=== PATIENT | male | born 1945 ===

== ENCOUNTER 2025-01-27 12:01 | Emergency (ER) | payer OTHER ==
--- OUTSIDE RECORDS SUMMARY | 2025-01-27 12:09 | XMS REPORT | Continuity of Care Document ---
Author Name Unknown Address [address] [facility] [place] [address] [facility] Address [address] [place] [address] Care Team Providers Care Director Of District Office Name Role Phone YAYO CHEN Attending Clinician GÓMEZ Tracy Attending Clinician Unavailable Coby Jain Attending Clinician Gulshan Mcdaniel Attending Clinician Unavailable ANNE-MARIE LEAL Attending Clinician Unavailabl e LAB90 Attending Clinician Unavailable EMILY PENN Attending Clinician Unavailable Coby Jain Admitting Clinician Rj ISSA Admitting Clinician Unavailable Gulshan Lai Admitting Clinician Unavailable Payers Payer Name Policy Type Policy Number Effective Date Expirati on Date Source [employer]ESS [employer]Y PPO 5 [id number] 2025 00:00:00 [employer]ESS [employer] SELECT PLAN HMO 7 [id number] 2023 00:00:00 DANNI MOY GOLD PLUS 42 OA 7 [id number] 2023 00:00:00 MEDICARE PART A \T\ B [id number] 2010 00:00:00 [facility] - [facility] OF STATE [id number] 2010 00:00:00 Problems Condition Name Condition Details Condition Category Status Onset Date Resolution Date Last Treatment Date Treating Clinician Comments Source Anemia Anemia Disease Active 2023-09 00:00: 00 Jolene Seybold - Externa l Elevated BP without diagnosis of hypertensi on Elevated BP without diagnosis of hypertensi on Disease Active 05-11 00:00: 00 Jolene Vasquezold - Externa l Gastroesop hageal reflux disease without esophagiti s Gastroesop hageal reflux disease without esophagiti s Disease Active 05-11 00:00: 00 Jolene Vasquezold - Externa l HTN (hypertens ion) HTN (hypertens ion) Disease Active 05-11 00:00: 00 Jolene Vasquezold - Externa l Hyperlipid emia Hyperlipid emia Disease Active 12-14 00:00: 00 Jolene Seybold - Externa l Allergies, Adverse Reactions, Alerts Allergy Name Allergy Type Status Severity Reaction(s) Onset Date Inactive Date Treating Clinician Comments Source No Known Allergie s DA Active U 06-03 00:00: 00 [facility] No Known Allergie s DA Active U 06-02 00:00: 00 [facility] NO KNOWN ALLERGIE S Drug Class Active [facility] Social History Social Habit Start Date Stop Date Quantity Comments Source Sexual orientation Gordo cruz Miquel - External History of Occupation Jolene Lafleur - External Alcoholic beverage intake 2024-07-14 00:00:00 2024-07-14 00:00:00 Current drinker of alcohol (finding) Jolene Lafleur - External Alcohol intake 2023-12-15 00:00:00 2023-12-15 00:00:00 Current drinker of alcohol (finding) Jolene Lafleur - External Tobacco use and exposure 2023-08-15 00:00:00 2023-08-15 00:00:00 Smokeless tobacco non-user Jolene Lafleur - External History of Social function 2023-08-15 00:00:00 2023-08-15 00:00:00 Jolene Lafleur - External Education 2023-08-15 00:00:00 2023-08-15 00:00:00 17 Jolene Lafleur - External Alcohol Comment 2023-08-15 00:00:00 2023-08-15 00:00:00 occasionally Jolene Lafleur - External Sex 2023-07-30 10:23:14 2023-07-30 10:23:14 Male (finding) Jolene Moy Sex assigned at 1945 00:00:00 1945 00:00:00 Jolene Moy Smoking Status Start Date Stop Date Source Never smoked tobacco Jolene Moy Medications Ordered Medication Name Filled Medication Name Start Date Stop Date Current Medication? Ordering Clinician Indication Dosage Frequency Signature (SIG) Comments Components Source Aspirin (Aspirin Adult Low Dose) 81 MG oral Tablet Delayed Response 2023-09 10:31: 26 Yes 81mg QD Take 1 tablet (81 mg total) by mouth daily. Jolene mirza Atorvastati n Calcium 80 MG oral Tablet 2023-09 10:31: 26 Yes 80mg QD Take 1 tablet (80 mg total) by mouth daily. Jolene mirza Clopidogrel Bisulfate (PLAVIX) 75 MG oral Tablet 2023-09 10:31: 26 Yes 75mg QD Take 1 tablet (75 mg total) by mouth daily. Jolene mirza Ferrous Sulfate 325 (65 Fe) MG oral Tablet 2023-09 10:31: 26 Yes 325mg QD Take 1 tablet (325 mg total) by mouth daily (with breakfast) . Jolene mirza Metoprolol Tartrate (LOPRESSOR) 25 MG oral Tablet 2023-09 10:31: 26 Yes 25mg Q.5D Take 1 tablet (25 mg total) by mouth 2 times daily. Jolene mirza Blood Pressure Monitoring (Blood Pressure Kit) does not apply Device 05-18 00:00: 00 Yes [id number] Check BP daily. Jolene mirza Omeprazole 20 MG oral Delayed Release Capsule 05-11 00:00: 00 07-14 00:00 :00 No [id number] 20mg QD Take 1 capsule (20 mg total) by mouth daily. Jolene mirza Immunizations Ordered Immunization Name Filled Immunization Name Date Status Comments Source PPD-Protein Derivative (Purified)- Tuberculin Unknown Completed Jolene Moy PPD-Protein Derivative (Purified)- Tuberculin Unknown Completed Jolene Seybold - External PPD-Protein Derivative (Purified)- Tuberculin Unknown Completed Jolene Seybold - External PPD-Protein Derivative (Purified)- Tuberculin Unknown Completed Jolene Seybold - External Vital Signs Vital Name Observation Time Observation Value Comments Justin campos Systolic blood pressure 2024-07-14 15:28:00 130 mm[Hg] Jolene Seybo ld - External Diastolic blood pressure 2024-07-14 15:28:00 62 mm[Hg] Jolene Seybo ld - External Heart rate 2024-07-14 15:28:00 78 /min Kelse y Seybold - External Respiratory rate 2024-07-14 15:28:00 16 /min Jolene Seybold - External Body height 2024-07-14 15:28:00 175.3 cm Amanda ey Seybold - External Body weight 2024-07-14 15:28:00 68.947 kg Amanda ey Seybold - External BMI 2024-07-14 15:28:00 22.45 kg/m2 Amanda ey Seybold - External Oxygen saturation in Arterial blood by Pulse oximetry 2024-07-14 15:28:00 100 /min Jolene Seybo ld - External Systolic blood pressure 2024-05-11 19:33:00 110 mm[Hg] Jolene Seybo ld - External Diastolic blood pressure 2024-05-11 19:33:00 60 mm[Hg] Jolene Seybo ld - External Heart rate 2024-05-11 19:17:00 52 /min Kelse y Seybold - External Respiratory rate 2024-05-11 19:17:00 16 /min Jolene Seybold - External Body height 2024-05-11 19:17:00 175.3 cm Amanda ey Seybold - External Body weight 2024-05-11 19:17:00 73.029 kg Amanda ey Seybold - External BMI 2024-05-11 19:17:00 23.78 kg/m2 Amanda ey Seybold - External Oxygen saturation in Arterial blood by Pulse oximetry 2024-05-11 19:17:00 98 /min Jolene Seybo ld - External Systolic blood pressure 2023-12-15 15:55:00 145 mm[Hg] Jolene Seybo ld - External Diastolic blood pressure 2023-12-15 15:55:00 75 mm[Hg] Jolene Seybo ld - External Heart rate 2023-12-15 15:28:00 64 /min Kelse y Seybold - External Body temperature 2023-12-15 15:28:00 35.78 Dyan Jolene Seybold - External Respiratory rate 2023-12-15 15:28:00 15 /min Jolene Seybold - External Body height 2023-12-15 15:28:00 175.3 cm Amanda ey Seybold - External Body weight 2023-12-15 15:28:00 69.854 kg Amanda ey Seybold - External BMI 2023-12-15 15:28:00 22.74 kg/m2 Amanda ey Seybold - External Oxygen saturation in Arterial blood by Pulse oximetry 2023-12-15 15:28:00 98 /min Jolene Seybo ld - External Systolic blood pressure 2023-08-15 17:38:00 140 mm[Hg] Jolene Seybo ld - External Diastolic blood pressure 2023-08-15 17:38:00 70 mm[Hg] Jolene Seybo ld - External Heart rate 2023-08-15 17:38:00 98 /min Kelse y Seybold - External Body temperature 2023-08-15 17:38:00 36.72 Dyan Jolene Seybold - External Respiratory rate 2023-08-15 17:38:00 14 /min Jolene Seybold - External Body height 2023-08-15 17:38:00 175.3 cm Amanda ey Seybold - External Body weight 2023-08-15 17:38:00 69.854 kg Amanda ey Seybold - External BMI 2023-08-15 17:38:00 22.74 kg/m2 Amanda ey Seybold - External Procedures Procedure Date / Time Performed Performing Clinicia n Source [id number] [facility]24[id number]24-[facility] [id number] 2024-06-04 [facility] [id number] 2024-06-04 00:00:00 [facility] [id number] 2024-06-04 00:00:00 [facility] [id number] 2024-06-04 00:00:00 [facility] [id number] 2024-06-04 00:00:00 [facility] [id number] 2024-06-04 00:00:00 DORAI [facility] [id number] 2024-06-04 00:00:00 DORAI [facility] [id number] 2024-06-04 [id number]04 00:00:00 [facility] [id number] 2024-06-03 00:00:00 ABBDA01 [facility] [id number] 2024-06-03 00:00:00 ABBDA01 [facility] QUANTAFLO 2023-12-15 15:36:47 Gómez Burroughs - External Encounters Start Date/Time End Date/Time Encounter Type Admission Type Attending [facility] Facility Care Department Encounter ID Source 2025-01-27 11:00:00 2025-01-27 11:00:00 Outpatient YAYO CHEN [id number] Jolene Lafleur 2024-09-23 00:00:00 2024-09-23 00:00:00 Outpatient GÓMEZ BURROUGHS [id number] Jolene Lafleur 2024-09-06 10:00:00 2024-09-06 10:00:00 Outpatient GÓMEZ BURROUGHS [id number] Jolene Lafleur 2024-08-13 00:00:00 2024-08-13 00:00:00 Outpatient JOLENE FOREMAN [id number] Jolene Lafleur 2024-08-06 00:00:00 2024-08-06 00:00:00 Outpatient JOLENE FOREMNA [id number] Jolene Lafleur 2024-07-14 10:15:00 2024-07-14 10:15:00 Outpatient GÓMEZ BURROUGHS [id number] Jolene Oglesbyybmadhav 2024-07-09 00:00:00 2024-07-09 00:00:00 Outpatient JOLENE FOREMAN [id number] Jolene Oglesbyybmadhav 2024-07-09 00:00:00 2024-07-09 00:00:00 Outpatient PREZAS, GÓMEZ JOLENE FOREMAN [id number] [facility] 2024-06-29 14:45:00 2024-06-29 14:45:00 Outpatient PREZAS, GÓMEZ JOLENE FOREMAN [id number] [facility] 2024-06-03 19:53:00 2024-06-03 19:53:00 Outpatient Lubnadavidhailey Bernicejoyce [facility] [id number] [facility] 2024-06-03 00:09:00 2024-06-03 18:00:00 Inpatient Gulshan Dunn [facility]02 [id number] [facility] 2024-05-31 00:00:00 2024-05-31 00:00:00 Outpatient PREZAS, GÓMEZ JOLENE FOREMAN [id number] [facility] 2024-05-31 00:00:00 2024-05-31 00:00:00 Outpatient JOLENE FOREMAN [id number] [facility] 2024-05-18 15:30:00 2024-05-18 15:30:00 Outpatient ELVISANNE-MARIE JOLENE FOREMAN [id number] [facility] 2024-05-18 00:00:00 2024-05-18 00:00:00 Outpatient PREZAS, GÓMEZ FOREMAN [id number] [facility] 2024-05-11 14:15:00 2024-05-11 14:15:00 Outpatient PREZAS, GÓMEZ FOREMAN [id number] [facility] 2023-12-18 00:00:00 2023-12-18 00:00:00 Outpatient PREZAS, GÓMEZ FOREMAN [id number] [facility] 2023-12-17 00:00:00 2023-12-17 00:00:00 Outpatient PREZAS, GÓMEZ FOREMAN [id number] Jolene Lafleur 2023-12-15 11:30:00 2023-12-15 11:30:00 Outpatient LAB90 JOLENE FOREMAN [id number] Jolene Lafleur 2023-12-15 10:30:00 2023-12-15 10:30:00 Outpatient GÓMEZ BURROUGHS [id number] oJlene Lafleur 2023-11-05 10:15:00 2023-11-05 10:15:00 Outpatient GÓMEZ BURROUGHS [id number] Jolene Lfaleur 2023-08-15 10:45:00 2023-08-15 10:45:00 Outpatient GÓMEZ BURROUGHS [id number] Jolene Lafleur 2023-08-15 00:00:00 2023-08-15 00:00:00 Outpatient JOLENE FOREMAN [id number] Jolene Lafleur 2021-04-27 12:00:00 2021-04-27 12:00:[address] [facility] [id number] [facility] 2021-04-27 12:00:00 2021-04-27 12:00:00 Outpatient EMILY ADAMS [facility] [id number] [facility] Results Test Description Test Time Test Comments Results Result Co mments Source BLOOD GAS [id number] 17:12:00* Test Item Value Reference Range Interpretation Comme nts ARTERIAL BLOOD GAS PH (test code = PHA) 7.37 7.35-7.45 N ARTERIAL BLOOD GAS PCO2 (test code = PCO2A) 35.2 mmHg 35.0-45.0 N ARTERIAL BLOOD GAS PO2 (test code = PO2A) 79.0 mmHg 80.0-95.0 L BICARBONATE TOTAL HCO3 (test code = HCO3) 19.7 mmol/L 22.0-24.0 L BASE EXCESS (test code = PRATIBHA) -5.0 mmol/L See_Comment L [Automated message] The system which generated this result transmitted reference range: (+/-)2.0. The reference range was not used to interpret this result as normal/abnormal. ABG O2 SATURATION (test code = SATA) 95.8 % 95.0-100.0 N ARTERIAL FIO2 (test code = FIO2A) 21.0 % ABG VENT MODE (test code = MODEA) NA ALLENS TEST (test code = ALLENS) NOT APPLICABLE SODIUM (POC) (test code = NA/ABG) 136 mmol/L 135-147 N POTASSIUM (POC) (test code = K/ABG) 4.27 mmol/L 3.6-5.2 N CHLORIDE (ARTERIAL) (test code = CL/ABG) 104 mmol/L 98-108 N GLUCOSE (test code = GLU/ABG) 144 mg/dL 70-104 H IONIZED CALCIUM (test code = CAIABG) 1.17 mmol/L 1.12-1.32 N POC LACTIC ACID (test code = POCLAC) 1.82 mmol/L 0.5-2.2 N TOTAL HGB (test code = THB) 10.7 g/dL 13.0-17.0 L CARBOXYHEMOGLOBIN (test code = HOHGBT) 0.1 % 0-5.0 N METHEMOGLOBIN (test code = METHGB) <0.8 % 0-1.5 N HHb (test code = HHB) 4.2 % TCO2 ARTERIAL (test code = TCO2A) 20.8 MMOL/L 24-30 L BLOOD GAS [id number] 17:12:00* Test Item Value Reference Range Interpretation Comme nts ARTERIAL BLOOD GAS PH (test code = PHA) 7.40 7.35-7.45 N ARTERIAL BLOOD GAS PCO2 (test code = PCO2A) 36.1 mmHg 35.0-45.0 N ARTERIAL BLOOD GAS PO2 (test code = PO2A) 60.4 mmHg 80.0-95.0 L BICARBONATE TOTAL HCO3 (test code = HCO3) 21.7 mmol/L 22.0-24.0 L BASE EXCESS (test code = PRATIBHA) -2.7 mmol/L See_Comment L [Automated message] The system which generated this result transmitted reference range: (+/-)2.0. The reference range was not used to interpret this result as normal/abnormal. ABG O2 SATURATION (test code = SATA) 93.1 % 95.0-100.0 L ARTERIAL FIO2 (test code = FIO2A) 21.0 % ABG VENT MODE (test code = MODEA) NASAL CANNULA ALLENS TEST (test code = ALLENS) NOT APPLICABLE SODIUM (POC) (test code = NA/ABG) 138 mmol/L 135-147 N POTASSIUM (POC) (test code = K/ABG) 4.27 mmol/L 3.6-5.2 N CHLORIDE (ARTERIAL) (test code = CL/ABG) 105 mmol/L 98-108 N GLUCOSE (test code = GLU/ABG) 135 mg/dL 70-104 H IONIZED CALCIUM (test code = CAIABG) 1.17 mmol/L 1.12-1.32 N POC LACTIC ACID (test code = POCLAC) 1.28 mmol/L 0.5-2.2 N TOTAL HGB (test code = THB) 10.8 g/dL 13.0-17.0 L OXYHEMOGLOBIN (test code = OOHGBT) 92.4 % 92.0-98.0 N CARBOXYHEMOGLOBIN (test code = HOHGBT) 0.3 % 0-5.0 N METHEMOGLOBIN (test code = METHGB) <0.8 % 0-1.5 N HHb (test code = HHB) 6.9 % TCO2 ARTERIAL (test code = TCO2A) 22.8 MMOL/L 24-30 L BASIC METABOLIC [id number] 05:26:00* Test Item Value Reference Range Interpretation Comme nts SODIUM (test code = NA) 139 mmol/L 136-145 N POTASSIUM (test code = K) 4.0 mmol/L 3.5-5.1 N CHLORIDE (test code = CL) 104 mmol/l 98-107 N CARBON DIOXIDE (test code = CO2) 29 mmol/L 20-31 N GLUCOSE (test code = GLU) 110 mg/dL 74-106 H BLOOD UREA NITROGEN (test code = BUN) 22 mg/dL 9-23 N GLOMERULAR FILTRATION RATE (test code = GFR) >=60 max estimate mL/min >60 The Glomerular Filtration Rate is a calculated parameterbased on serum Creatinine, patient age and sex. GFR valuesless than 60 mL/min/1.73 square meters are indicative ofChronic Kidney Disease. Values less than 15 mL/min/1.73square meters indicate Kidney failure. The calculation forGFR is based on the CKD-EPI (202) calculation. This formulais race indifferent and is the recommended formula for GFRby the National Kidney Foundation for Adults.The GFR will not calculate if the sex is unknown or if thepatient's age is <18 years. CREATININE (test code = CREAT) 1.00 mg/dL 0.70-1.30 N CALCIUM (test code = CA) 7.9 mg/dL 8.7-10.4 L CBC W/AUTO [id number] 05:12:00* Test Item Value Reference Range Interpretation Comme nts WHITE BLOOD CELL (test code = WBC) 6.4 x10 3/uL 4.8-10.8 N RED BLOOD CELL (test code = RBC) 2.88 x10 6/uL 4.70-6.10 L HEMOGLOBIN (test code = HGB) 9.3 g/dL 14.0-18.0 L HEMATOCRIT (test code = HCT) 26.0 % 42.0-52.0 L MEAN CELL VOLUME (test code = MCV) 90.3 fL 80.0-94.0 N MEAN CELL HGB (test code = MCH) 32.3 pg 27-31 H MEAN CELL HGB CONCENTRATION (test code = MCHC) 35.8 G/DL 33-36.5 N RED CELL DISTRIBUTION WIDTH (test code = RDW) 13.8 % 12.9-16.9 N PLATELET COUNT (test code = PLT) 155 x10 3/uL 150-440 N MEAN PLATELET VOLUME (test c ode = MPV) 9.8 fL 8.9-12.4 N NEUTROPHIL % (test code = NT%) 66.2 % 42.2-75.2 N LYMPHOCYTE % (test code = LY%) 20.1 % 20.5-51.1 L MONOCYTE % (test code = MO%) 10.2 % 1.7-9.3 H EOSINOPHIL % (test code = EO%) 2.4 % 0.0-7.0 N BASOPHIL % (test code = BA%) 0.3 % 0-2.5 N NEUTROPHIL # (test code = NT#) 4.21 x10 3/uL 1.80-7.70 N LYMPHOCYTE # (test code = LY#) 1.28 x10 3/uL 1.00-4.80 N MONOCYTE # (test code = MO#) 0.65 x10 3/uL 0.00-0.80 N EOSINOPHIL # (test code = EO#) 0.15 x10 3/uL 0.00-0.45 N BASOPHIL # (test code = BA#) 0.02 x10 3/uL 0.0-0.20 N [id number] 17:01:00* Test Item Value Reference Range Interpretation Comme nts GLUBED (test code = GLUBED) 88 MG/DL 70-105 N THROMBOPLASTIN TIME [id number] 12:06:00* Test Item Value Reference Range Interpretation Comme nts THROMBOPLASTIN TIME PARTIAL (test code = PTT) 34.4 secs 23.8-34.8 N INTERPRETATIVE D PINEDA: Therapeutic range: Unfractionated Heparin: 60-90 seconds Argatroban: 60-90 seconds BASIC METABOLIC [id number] 12:01:00* Test Item Value Reference Range Interpretation Comme nts SODIUM (test code = NA) 138 mmol/L 136-145 N POTASSIUM (test code = K) 3.7 mmol/L 3.5-5.1 REPEAT VALUE 3.7 CHLORIDE (test code = CL) 103 mmol/l 98-107 N CARBON DIOXIDE (test code = CO2) 29 mmol/L 20-31 N GLUCOSE (test code = GLU) 104 mg/dL 74-106 N BLOOD UREA NITROGEN (test code = BUN) 18 mg/dL 9-23 N GLOMERULAR FILTRATION RATE (test code = GFR) >=60 max estimate mL/min >60 The Glomerular Filtration Rate is a calculated parameterbased on serum Creatinine, patient age and sex. GFR valuesless than 60 mL/min/1.73 square meters are indicative ofChronic Kidney Disease. Values less than 15 mL/min/1.73square meters indicate Kidney failure. The calculation forGFR is based on the CKD-EPI (2020) calculation. This formulais race indifferent and is the recommended formula for GFRby the National Kidney Foundation for Adults.The GFR will not calculate if the sex is unknown or if thepatient's age is <18 years. CREATININE (test code = CREAT) 1.00 mg/dL 0.70-1.30 N CALCIUM (test code = CA) 8.3 mg/dL 8.7-10.4 L [id number] 12:01:00* Test Item Value Reference Range Interpretation Comme nts PHOSPHOROUS (test code = PHOS) 1.8 mg/dL 2.4-5.1 L [id number] 12:01:00* Test Item Value Reference Range Interpretation Comme nts MAGNESIUM (test code = MAG) 2.2 mg/dL 1.6-2.6 N CBC W/AUTO [id number] 11:45:00* Test Item Value Reference Range Interpretation Comme nts WHITE BLOOD CELL (test code = WBC) 7.8 x10 3/uL 4.8-10.8 N RED BLOOD CELL (test code = RBC) 3.35 x10 6/uL 4.70-6.10 L HEMOGLOBIN (test code = HGB) 10.9 g/dL 14.0-18.0 L HEMATOCRIT (test code = HCT) 30.5 % 42.0-52.0 L MEAN CELL VOLUME (test code = MCV) 91.0 fL 80.0-94.0 N MEAN CELL HGB (test code = MCH) 32.5 pg 27-31 H MEAN CELL HGB CONCENTRATION (test code = MCHC) 35.7 G/DL 33-36.5 N RED CELL DISTRIBUTION WIDTH (test code = RDW) 14.4 % 12.9-16.9 N PLATELET COUNT (test code = PLT) 164 x10 3/uL 150-440 N MEAN PLATELET VOLUME (test c ode = MPV) 9.9 fL 8.9-12.4 N NEUTROPHIL % (test code = NT%) 79.0 % 42.2-75.2 H LYMPHOCYTE % (test code = LY%) 11.7 % 20.5-51.1 L MONOCYTE % (test code = MO%) 7.3 % 1.7-9.3 N EOSINOPHIL % (test code = EO%) 0.9 % 0.0-7.0 N BASOPHIL % (test code = BA%) 0.5 % 0-2.5 N NEUTROPHIL # (test code = NT#) 6.12 x10 3/uL 1.80-7.70 N LYMPHOCYTE # (test code = LY#) 0.91 x10 3/uL 1.00-4.80 L MONOCYTE # (test code = MO#) 0.57 x10 3/uL 0.00-0.80 N EOSINOPHIL # (test code = EO#) 0.07 x10 3/uL 0.00-0.45 N BASOPHIL # (test code = BA#) 0.04 x10 3/uL 0.0-0.20 N [id number] 20:40:00* Test Item Value Reference Range Interpretation Comme nts GLUBED (test code = GLUBED) 126 MG/DL 70-105 H BASIC METABOLIC [id number] 18:49:00* Test Item Value Reference Range Interpretation Comme nts SODIUM (test code = NA) 134 mmol/L 136-145 L POTASSIUM (test code = K) 4.7 mmol/L 3.5-5.1 N CHLORIDE (test code = CL) 104 mmol/l 98-107 N CARBON DIOXIDE (test code = CO2) 23 mmol/L 20-31 N GLUCOSE (test code = GLU) 93 mg/dL 74-106 N BLOOD UREA NITROGEN (test code = BUN) 11 mg/dL 9-23 N GLOMERULAR FILTRATION RATE (test code = GFR) >=60 max estimate mL/min >60 The Glomerular Filtration Rate is a calculated parameterbased on serum Creatinine, patient age and sex. GFR valuesless than 60 mL/min/1.73 square meters are indicative ofChronic Kidney Disease. Values less than 15 mL/min/1.73square meters indicate Kidney failure. The calculation forGFR is based on the CKD-EPI (2020) calculation. This formulais race indifferent and is the recommended formula for GFRby the National Kidney Foundation for Adults.The GFR will not calculate if the sex is unknown or if thepatient's age is <18 years. CREATININE (test code = CREAT) 0.90 mg/dL 0.70-1.30 N CALCIUM (test code = CA) 8.1 mg/dL 8.7-10.4 L [id number] 18:49:00* Test Item Value Reference Range Interpretation Comme nts PHOSPHOROUS (test code = PHOS) 2.6 mg/dL 2.4-5.1 N [id number] 18:49:00* Test Item Value Reference Range Interpretation Comme nts MAGNESIUM (test code = MAG) 1.7 mg/dL 1.6-2.6 N [id number] 18:32:00* Test Item Value Reference Range Interpretation Comme nts GLUBED (test code = GLUBED) 94 MG/DL 70-105 N BASIC METABOLIC [id number] 11:43:00* Test Item Value Reference Range Interpretation Comme nts SODIUM (test code = NA) 135 mmol/L 136-145 L POTASSIUM (test code = K) 4.4 mmol/L 3.5-5.1 N CHLORIDE (test code = CL) 103 mmol/l 98-107 N CARBON DIOXIDE (test code = CO2) 27 mmol/L 20-31 N GLUCOSE (test code = GLU) 99 mg/dL 74-106 N BLOOD UREA NITROGEN (test code = BUN) 15 mg/dL 9-23 N GLOMERULAR FILTRATION RATE (test code = GFR) >=60 max estimate mL/min >60 The Glomerular Filtration Rate is a calculated parameterbased on serum Creatinine, patient age and sex. GFR valuesless than 60 mL/min/1.73 square meters are indicative ofChronic Kidney Disease. Values less than 15 mL/min/1.73square meters indicate Kidney failure. The calculation forGFR is based on the CKD-EPI (2020) calculation. This formulais race indifferent and is the recommended formula for GFRby the National Kidney Foundation for Adults.The GFR will not calculate if the sex is unknown or if thepatient's age is <18 years. CREATININE (test code = CREAT) 0.90 mg/dL 0.70-1.30 N CALCIUM (test code = CA) 8.2 mg/dL 8.7-10.4 L [id number] 11:43:00* Test Item Value Reference Range Interpretation Comme nts PHOSPHOROUS (test code = PHOS) 2.5 mg/dL 2.4-5.1 N [id number] 11:43:00* Test Item Value Reference Range Interpretation Comme nts MAGNESIUM (test code = MAG) 2.0 mg/dL 1.6-2.6 N [id number] 09:08:00* Test Item Value Reference Range Interpretation Comme nts GLUBED (test code = GLUBED) 100 MG/DL 70-105 N BASIC METABOLIC [id number] 03:37:00* Test Item Value Reference Range Interpretation Comme nts SODIUM (test code = NA) 137 mmol/L 136-145 N POTASSIUM (test code = K) 4.5 mmol/L 3.5-5.1 N CHLORIDE (test code = CL) 105 mmol/l 98-107 N CARBON DIOXIDE (test code = CO2) 25 mmol/L 20-31 N GLUCOSE (test code = GLU) 102 mg/dL 74-106 N BLOOD UREA NITROGEN (test code = BUN) 18 mg/dL 9-23 N GLOMERULAR FILTRATION RATE (test code = GFR) >=60 max estimate mL/min >60 The Glomerular Filtration Rate is a calculated parameterbased on serum Creatinine, patient age and sex. GFR valuesless than 60 mL/min/1.73 square meters are indicative ofChronic Kidney Disease. Values less than 15 mL/min/1.73square meters indicate Kidney failure. The calculation forGFR is based on the CKD-EPI (202) calculation. This formulais race indifferent and is the recommended formula for GFRby the National Kidney Foundation for Adults.The GFR will not calculate if the sex is unknown or if thepatient's age is <18 years. CREATININE (test code = CREAT) 0.90 mg/dL 0.70-1.30 N CALCIUM (test code = CA) 8.1 mg/dL 8.7-10.4 L [id number] 03:37:00* Test Item Value Reference Range Interpretation Comme nts PHOSPHOROUS (test code = PHOS) 3.3 mg/dL 2.4-5.1 N [id number] 03:37:00* Test Item Value Reference Range Interpretation Comme nts MAGNESIUM (test code = MAG) 2.0 mg/dL 1.6-2.6 N CBC W/AUTO [id number] 03:25:00* Test Item Value Reference Range Interpretation Comme nts WHITE BLOOD CELL (test code = WBC) 11.2 x10 3/uL 4.8-10.8 H RED BLOOD CELL (test code = RBC) 2.97 x10 6/uL 4.70-6.10 L HEMOGLOBIN (test code = HGB) 9.5 g/dL 14.0-18.0 L HEMATOCRIT (test code = HCT) 27.3 % 42.0-52.0 L MEAN CELL VOLUME (test code = MCV) 91.9 fL 80.0-94.0 N MEAN CELL HGB (test code = MCH) 32.0 pg 27-31 H MEAN CELL HGB CONCENTRATION (test code = MCHC) 34.8 G/DL 33-36.5 N RED CELL DISTRIBUTION WIDTH (test code = RDW) 14.3 % 12.9-16.9 N PLATELET COUNT (test code = PLT) 113 x10 3/uL 150-440 L MEAN PLATELET VOLUME (test c ode = MPV) 10.1 fL 8.9-12.4 N NEUTROPHIL % (test code = NT%) 80.3 % 42.2-75.2 H LYMPHOCYTE % (test code = LY%) 11.4 % 20.5-51.1 L MONOCYTE % (test code = MO%) 7.4 % 1.7-9.3 N EOSINOPHIL % (test code = EO%) 0.3 % 0.0-7.0 N BASOPHIL % (test code = BA%) 0.2 % 0-2.5 N NEUTROPHIL # (test code = NT#) 8.95 x10 3/uL 1.80-7.70 H LYMPHOCYTE # (test code = LY#) 1.27 x10 3/uL 1.00-4.80 N MONOCYTE # (test code = MO#) 0.83 x10 3/uL 0.00-0.80 H EOSINOPHIL # (test code = EO#) 0.03 x10 3/uL 0.00-0.45 N BASOPHIL # (test code = BA#) 0.02 x10 3/uL 0.0-0.20 N [id number] 21:25:00* Test Item Value Reference Range Interpretation Comme nts GLUBED (test code = GLUBED) 123 MG/DL 70-105 H COMPREHENSIVE METABOLIC [id number] 17:19:00* Test Item Value Reference Range Interpretation Comme nts SODIUM (test code = NA) 135 mmol/L 136-145 L POTASSIUM (test code = K) 4.0 mmol/L 3.5-5.1 N CHLORIDE (test code = CL) 105 mmol/l 98-107 N CARBON DIOXIDE (test code = CO2) 26 mmol/L 20-31 N GLUCOSE (test code = GLU) 116 mg/dL 74-106 H BLOOD UREA NITROGEN (test code = BUN) 18 mg/dL 9-23 N GLOMERULAR FILTRATION RATE (test code = GFR) >=60 max estimate mL/min >60 The Glomerular Filtration Rate is a calculated parameterbased on serum Creatinine, patient age and sex. GFR valuesless than 60 mL/min/1.73 square meters are indicative ofChronic Kidney Disease. Values less than 15 mL/min/1.73square meters indicate Kidney failure. The calculation forGFR is based on the CKD-EPI (202) calculation. This formulais race indifferent and is the recommended formula for GFRby the National Kidney Foundation for Adults.The GFR will not calculate if the sex is unknown or if thepatient's age is <18 years. CREATININE (test code = CREAT) 0.90 mg/dL 0.70-1.30 N TOTAL PROTEIN (test code = PROT) 6.0 g/dL 5.7-8.2 N ALBUMIN (test code = ALB) 3.7 g/dL 3.2-4.8 N CALCIUM (test code = CA) 8.2 mg/dL 8.7-10.4 L BILIRUBIN TOTAL (test code = BILT) 0.6 mg/dL 0.3-1.2 N SGOT/AST (test code = AST) 38 U/L <34 H SGPT/ALT (test code = ALT) 13 U/L 10-49 N ALKALINE PHOSPHATASE (test code = ALKP) 37.0 U/L 46-116 L [id number] 17:19:00* Test Item Value Reference Range Interpretation Comme nts PHOSPHOROUS (test code = PHOS) 2.7 mg/dL 2.4-5.1 N [id number] 17:19:00* Test Item Value Reference Range Interpretation Comme nts MAGNESIUM (test code = MAG) 2.2 mg/dL 1.6-2.6 N CBC W/AUTO [id number] 17:03:00* Test Item Value Reference Range Interpretation Comme nts WHITE BLOOD CELL (test code = WBC) 15.5 x10 3/uL 4.8-10.8 H RED BLOOD CELL (test code = RBC) 2.98 x10 6/uL 4.70-6.10 L HEMOGLOBIN (test code = HGB) 9.7 g/dL 14.0-18.0 L HEMATOCRIT (test code = HCT) 27.1 % 42.0-52.0 L MEAN CELL VOLUME (test code = MCV) 90.9 fL 80.0-94.0 N MEAN CELL HGB (test code = MCH) 32.6 pg 27-31 H MEAN CELL HGB CONCENTRATION (test code = MCHC) 35.8 G/DL 33-36.5 N RED CELL DISTRIBUTION WIDTH (test code = RDW) 14.5 % 12.9-16.9 N PLATELET COUNT (test code = PLT) 114 x10 3/uL 150-440 L MEAN PLATELET VOLUME (test code = MPV) 10.6 fL 8.9-12.4 N NEUTROPHIL % (test code = NT%) 83.6 % 42.2-75.2 H LYMPHOCYTE % (test code = LY%) 7.9 % 20.5-51.1 L MONOCYTE % (test code = MO%) 7.8 % 1.7-9.3 N EOSINOPHIL % (test code = EO%) 0.1 % 0.0-7.0 N BASOPHIL % (test code = BA%) 0.1 % 0-2.5 N NEUTROPHIL # (test code = NT#) 12.93 x10 3/uL 1.80-7.70 H LYMPHOCYTE # (test code = LY#) 1.22 x10 3/uL 1.00-4.80 N MONOCYTE # (test code = MO#) 1.21 x10 3/uL 0.00-0.80 H EOSINOPHIL # (test code = EO#) 0.02 x10 3/uL 0.00-0.45 N BASOPHIL # (test code = BA#) 0.01 x10 3/uL 0.0-0.20 N [id number] 13:13:00* Test Item Value Reference Range Interpretation Comme nts GLUBED (test code = GLUBED) 132 MG/DL 70-105 H [id number] 08:54:00* Test Item Value Reference Range Interpretation Comme nts GLUBED (test code = GLUBED) 137 MG/DL 70-105 H BLOOD GAS [id number]/[id number] 07:10:00* Test Item Value Reference Range Interpretation Comme nts ARTERIAL BLOOD GAS PH (test code = PHA) 7.40 7.35-7.45 N ARTERIAL BLOOD GAS PCO2 (test code = PCO2A) 35.0 mmHg 35.0-45.0 N ARTERIAL BLOOD GAS PO2 (test code = PO2A) 81.0 mmHg 80.0-95.0 N BICARBONATE TOTAL HCO3 (test code = HCO3) 21.2 mmol/L 22.0-24.0 L BASE EXCESS (test code = PRATIBHA) -3.1 mmol/L See_Comment L [Automated message] The system which generated this result transmitted reference range: (+/-)2.0. The reference range was not used to interpret this result as normal/abnormal. ABG O2 SATURATION (test code = SATA) 96.2 % 95.0-100.0 N ARTERIAL FIO2 (test code = FIO2A) 70.0 % ABG VENT MODE (test code = MODEA) NASAL CANNULA ALLENS TEST (test code = ALLENS) NOT APPLICABLE SODIUM (POC) (test code = NA/ABG) 133 mmol/L 135-147 L POTASSIUM (POC) (test code = K/ABG) 4.18 mmol/L 3.6-5.2 N CHLORIDE (ARTERIAL) (test code = CL/ABG) 103 mmol/L 98-108 N GLUCOSE (test code = GLU/ABG) 126 mg/dL 70-104 H IONIZED CALCIUM (test code = CAIABG) 1.16 mmol/L 1.12-1.32 N POC LACTIC ACID (test code = POCLAC) 1.18 mmol/L 0.5-2.2 N TOTAL HGB (test code = THB) 9.9 g/dL 13.0-17.0 L CARBOXYHEMOGLOBIN (test code = HOHGBT) 0.3 % 0-5.0 N METHEMOGLOBIN (test code = METHGB) <0.8 % 0-1.5 N HHb (test code = HHB) 3.8 % TCO2 ARTERIAL (test code = TCO2A) 22.3 MMOL/L 24-30 L HGBA1C - GLYCOSYLATED [id number] 04:28:00* Test Item Value Reference Range Interpretation Comme nts GLYCOSYLATED HEMOGLOBIN (HA1C) (test code = GLYHGB) 5.1 % <5.7 N Diabetic >/= 6.5%Prediabetes 5.7-6.4%Normal < 5.7% BASIC METABOLIC [id number] 03:45:00* Test Item Value Reference Range Interpretation Comme nts SODIUM (test code = NA) 138 mmol/L 136-145 N POTASSIUM (test code = K) 4.3 mmol/L 3.5-5.1 N CHLORIDE (test code = CL) 107 mmol/l 98-107 N CARBON DIOXIDE (test code = CO2) 26 mmol/L 20-31 N GLUCOSE (test code = GLU) 129 mg/dL 74-106 H BLOOD UREA NITROGEN (test code = BUN) 17 mg/dL 9-23 N GLOMERULAR FILTRATION RATE (test code = GFR) >=60 max estimate mL/min >60 The Glomerular Filtration Rate is a calculated parameterbased on serum Creatinine, patient age and sex. GFR valuesless than 60 mL/min/1.73 square meters are indicative ofChronic Kidney Disease. Values less than 15 mL/min/1.73square meters indicate Kidney failure. The calculation forGFR is based on the CKD-EPI (2020) calculation. This formulais race indifferent and is the recommended formula for GFRby the National Kidney Foundation for Adults.The GFR will not calculate if the sex is unknown or if thepatient's age is <18 years. CREATININE (test code = CREAT) 1.00 mg/dL 0.70-1.30 N CALCIUM (test code = CA) 8.5 mg/dL 8.7-10.4 L [id number] 03:45:00* Test Item Value Reference Range Interpretation Comme nts PHOSPHOROUS (test code = PHOS) 3.5 mg/dL 2.4-5.1 N [id number] 03:45:00* Test Item Value Reference Range Interpretation Comme nts MAGNESIUM (test code = MAG) 2.2 mg/dL 1.6-2.6 N PROTHROMBIN [id number] 03:30:00* Test Item Value Reference Range Interpretation Comme nts PROTHROMBIN TIME PATIENT (test code = PTP) 12.2 SECONDS 10.3-12.9 N INTERNATIONAL NORMAL RATIO (test code = INR) 1.09 0.9-1.11 N INR goals are individualized based on patient specificfactors. The following are only general guidelines: Indications: INR Goal:1. Treatment of venous thromboembolism and 2.0 - 3.0 systemic anticoagulation in a variety of conditions, including atrial fibrillation and mechanical heart valves 2. Mechanical mitral and tricuspid valves, 2.5 - 3.5 systemic anticoagulation for high-risk conditions THROMBOPLASTIN TIME [id number] 03:30:00* Test Item Value Reference Range Interpretation Comme nts THROMBOPLASTIN TIME PARTIAL (test code = PTT) 29.4 secs 23.8-34.8 N INTERPRETATIVE D PINEDA: Therapeutic range: Unfractionated Heparin: 60-90 seconds Argatroban: 60-90 seconds CBC W/AUTO [id number] 03:21:00* Test Item Value Reference Range Interpretation Comme nts WHITE BLOOD CELL (test code = WBC) 18.4 x10 3/uL 4.8-10.8 H RED BLOOD CELL (test code = RBC) 2.88 x10 6/uL 4.70-6.10 L HEMOGLOBIN (test code = HGB) 9.4 g/dL 14.0-18.0 L HEMATOCRIT (test code = HCT) 26.2 % 42.0-52.0 L MEAN CELL VOLUME (test code = MCV) 91.0 fL 80.0-94.0 N MEAN CELL HGB (test code = MCH) 32.6 pg 27-31 H MEAN CELL HGB CONCENTRATION (test code = MCHC) 35.9 G/DL 33-36.5 N RED CELL DISTRIBUTION WIDTH (test code = RDW) 14.4 % 12.9-16.9 N PLATELET COUNT (test code = PLT) 111 x10 3/uL 150-440 L MEAN PLATELET VOLUME (test code = MPV) 9.9 fL 8.9-12.4 N NEUTROPHIL % (test code = NT%) 84.2 % 42.2-75.2 H LYMPHOCYTE % (test code = LY%) 7.1 % 20.5-51.1 L MONOCYTE % (test code = MO%) 8.0 % 1.7-9.3 N EOSINOPHIL % (test code = EO%) 0.1 % 0.0-7.0 N BASOPHIL % (test code = BA%) 0.1 % 0-2.5 N NEUTROPHIL # (test code = NT#) 15.45 x10 3/uL 1.80-7.70 H LYMPHOCYTE # (test code = LY#) 1.30 x10 3/uL 1.00-4.80 N MONOCYTE # (test code = MO#) 1.47 x10 3/uL 0.00-0.80 H EOSINOPHIL # (test code = EO#) 0.01 x10 3/uL 0.00-0.45 N BASOPHIL # (test code = BA#) 0.02 x10 3/uL 0.0-0.20 N BLOOD GAS [id number] 02:11:00* Test Item Value Reference Range Interpretation Comme nts ARTERIAL BLOOD GAS PH (test code = PHA) 7.37 7.35-7.45 N ARTERIAL BLOOD GAS PCO2 (test code = PCO2A) 40.3 mmHg 35.0-45.0 N ARTERIAL BLOOD GAS PO2 (test code = PO2A) 82.5 mmHg 80.0-95.0 N BICARBONATE TOTAL HCO3 (test code = HCO3) 22.6 mmol/L 22.0-24.0 N BASE EXCESS (test code = PRATIBHA) -2.6 mmol/L See_Comment L [Automated message] The system which generated this result transmitted reference range: (+/-)2.0. The reference range was not used to interpret this result as normal/abnormal. ABG O2 SATURATION (test code = SATA) 96.3 % 95.0-100.0 N ARTERIAL FIO2 (test code = FIO2A) 28.0 % ABG VENT MODE (test code = MODEA) NASAL CANNULA ALLENS TEST (test code = ALLENS) NOT APPLICABLE SODIUM (POC) (test code = NA/ABG) 134 mmol/L 135-147 L POTASSIUM (POC) (test code = K/ABG) 4.29 mmol/L 3.6-5.2 N CHLORIDE (ARTERIAL) (test code = CL/ABG) 104 mmol/L 98-108 N GLUCOSE (test code = GLU/ABG) 142 mg/dL 70-104 H IONIZED CALCIUM (test code = CAIABG) 1.23 mmol/L 1.12-1.32 N POC LACTIC ACID (test code = POCLAC) 1.45 mmol/L 0.5-2.2 N TOTAL HGB (test code = THB) 10.7 g/dL 13.0-17.0 L OXYHEMOGLOBIN (test code = OOHGBT) 95.4 % 92.0-98.0 N CARBOXYHEMOGLOBIN (test code = HOHGBT) 0.4 % 0-5.0 N METHEMOGLOBIN (test code = METHGB) <0.8 % 0-1.5 N HHb (test code = HHB) 3.7 % TCO2 ARTERIAL (test code = TCO2A) 23.8 MMOL/L 24-30 L BASIC METABOLIC [id number] 20:50:00* Test Item Value Reference Range Interpretation Comme nts SODIUM (test code = NA) 139 mmol/L 136-145 N POTASSIUM (test code = K) 4.4 mmol/L 3.5-5.1 N CHLORIDE (test code = CL) 107 mmol/l 98-107 N CARBON DIOXIDE (test code = CO2) 24 mmol/L 20-31 N GLUCOSE (test code = GLU) 132 mg/dL 74-106 H BLOOD UREA NITROGEN (test code = BUN) 15 mg/dL 9-23 N GLOMERULAR FILTRATION RATE (test code = GFR) >=60 max estimate mL/min >60 The Glomerular Filtration Rate is a calculated parameterbased on serum Creatinine, patient age and sex. GFR valuesless than 60 mL/min/1.73 square meters are indicative ofChronic Kidney Disease. Values less than 15 mL/min/1.73square meters indicate Kidney failure. The calculation forGFR is based on the CKD-EPI (2020) calculation. This formulais race indifferent and is the recommended formula for GFRby the National Kidney Foundation for Adults.The GFR will not calculate if the sex is unknown or if thepatient's age is <18 years. CREATININE (test code = CREAT) 1.00 mg/dL 0.70-1.30 N CALCIUM (test code = CA) 8.8 mg/dL 8.7-10.4 N [id number] 20:50:00* Test Item Value Reference Range Interpretation Comme nts PHOSPHOROUS (test code = PHOS) 3.9 mg/dL 2.4-5.1 N [id number] 20:50:00* Test Item Value Reference Range Interpretation Comme nts MAGNESIUM (test code = MAG) 2.3 mg/dL 1.6-2.6 N COMPREHENSIVE METABOLIC [id number] 17:47:00* Test Item Value Reference Range Interpretation Comme nts SODIUM (test code = NA) 141 mmol/L 136-145 N POTASSIUM (test code = K) 4.3 mmol/L 3.5-5.1 N CHLORIDE (test code = CL) 108 mmol/l 98-107 H CARBON DIOXIDE (test code = CO2) 22 mmol/L 20-31 N GLUCOSE (test code = GLU) 141 mg/dL 74-106 H BLOOD UREA NITROGEN (test code = BUN) 15 mg/dL 9-23 N GLOMERULAR FILTRATION RATE (test code = GFR) >=60 max estimate mL/min >60 The Glomerular Filtration Rate is a calculated parameterbased on serum Creatinine, patient age and sex. GFR valuesless than 60 mL/min/1.73 square meters are indicative ofChronic Kidney Disease. Values less than 15 mL/min/1.73square meters indicate Kidney failure. The calculation forGFR is based on the CKD-EPI (2020) calculation. This formulais race indifferent and is the recommended formula for GFRby the National Kidney Foundation for Adults.The GFR will not calculate if the sex is unknown or if thepatient's age is <18 years. CREATININE (test code = CREAT) 1.00 mg/dL 0.70-1.30 N TOTAL PROTEIN (test code = PROT) 5.9 g/dL 5.7-8.2 N ALBUMIN (test code = ALB) 3.8 g/dL 3.2-4.8 N CALCIUM (test code = CA) 8.2 mg/dL 8.7-10.4 L BILIRUBIN TOTAL (test code = BILT) 0.7 mg/dL 0.3-1.2 N SGOT/AST (test code = AST) 57 U/L <34 H SGPT/ALT (test code = ALT) 16 U/L 10-49 N ALKALINE PHOSPHATASE (test code = ALKP) 32.0 U/L 46-116 L [id number] 17:47:00* Test Item Value Reference Range Interpretation Comme nts PHOSPHOROUS (test code = PHOS) 3.7 mg/dL 2.4-5.1 N [id number] 17:47:00* Test Item Value Reference Range Interpretation Comme nts MAGNESIUM (test code = MAG) 1.9 mg/dL 1.6-2.6 N CBC W/AUTO [id number] 17:11:00* Test Item Value Reference Range Interpretation Comme nts WHITE BLOOD CELL (test code = WBC) 20.6 x10 3/uL 4.8-10.8 H RED BLOOD CELL (test code = RBC) 3.06 x10 6/uL 4.70-6.10 L HEMOGLOBIN (test code = HGB) 10.0 g/dL 14.0-18.0 L HEMATOCRIT (test code = HCT) 27.9 % 42.0-52.0 L MEAN CELL VOLUME (test code = MCV) 91.2 fL 80.0-94.0 N MEAN CELL HGB (test code = MCH) 32.7 pg 27-31 H MEAN CELL HGB CONCENTRATION (test code = MCHC) 35.8 G/DL 33-36.5 N RED CELL DISTRIBUTION WIDTH (test code = RDW) 14.4 % 12.9-16.9 N PLATELET COUNT (test code = PLT) 125 x10 3/uL 150-440 L MEAN PLATELET VOLUME (test code = MPV) 9.9 fL 8.9-12.4 N NEUTROPHIL % (test code = NT%) 89.6 % 42.2-75.2 H LYMPHOCYTE % (test code = LY%) 3.1 % 20.5-51.1 L MONOCYTE % (test code = MO%) 6.7 % 1.7-9.3 N EOSINOPHIL % (test code = EO%) 0.0 % 0.0-7.0 N BASOPHIL % (test code = BA%) 0.1 % 0-2.5 N NEUTROPHIL # (test code = NT#) 18.46 x10 3/uL 1.80-7.70 H LYMPHOCYTE # (test code = LY#) 0.63 x10 3/uL 1.00-4.80 L MONOCYTE # (test code = MO#) 1.37 x10 3/uL 0.00-0.80 H EOSINOPHIL # (test code = EO#) 0.00 x10 3/uL 0.00-0.45 N BASOPHIL # (test code = BA#) 0.02 x10 3/uL 0.0-0.20 N [id number] 09:45:00* Test Item Value Reference Range Interpretation Comme nts GLUBED (test code = GLUBED) 147 MG/DL 70-105 H [id number] 06:28:00* Test Item Value Reference Range Interpretation Comme nts GLUBED (test code = GLUBED) 89 MG/DL 70-105 N [id number] 05:26:00* Test Item Value Reference Range Interpretation Comme nts GLUBED (test code = GLUBED) 103 MG/DL 70-105 N BLOOD GAS [id number] 04:18:00* Test Item Value Reference Range Interpretation Comme nts ARTERIAL BLOOD GAS PH (test code = PHA) 7.37 7.35-7.45 N ARTERIAL BLOOD GAS PCO2 (test code = PCO2A) 39.9 mmHg 35.0-45.0 N ARTERIAL BLOOD GAS PO2 (test code = PO2A) 107.6 mmHg 80.0-95.0 H BICARBONATE TOTAL HCO3 (test code = HCO3) 22.5 mmol/L 22.0-24.0 N BASE EXCESS (test code = PRATIBHA) -2.5 mmol/L See_Comment L [Automated message] The system which generated this result transmitted reference range: (+/-)2.0. The reference range was not used to interpret this result as normal/abnormal. ABG O2 SATURATION (test code = SATA) 97.8 % 95.0-100.0 N ARTERIAL FIO2 (test code = FIO2A) 32.0 % ABG VENT MODE (test code = MODEA) NASAL CANNULA ALLENS TEST (test code = ALLENS) No SODIUM (POC) (test code = NA/ABG) 140 mmol/L 135-147 N POTASSIUM (POC) (test code = K/ABG) 4.31 mmol/L 3.6-5.2 N CHLORIDE (ARTERIAL) (test code = CL/ABG) 107 mmol/L 98-108 N GLUCOSE (test code = GLU/ABG) 131 mg/dL 70-104 H IONIZED CALCIUM (test code = CAIABG) 1.26 mmol/L 1.12-1.32 N POC LACTIC ACID (test code = POCLAC) 1.56 mmol/L 0.5-2.2 N TOTAL HGB (test code = THB) 10.0 g/dL 13.0-17.0 L OXYHEMOGLOBIN (test code = OOHGBT) 97.2 % 92.0-98.0 N CARBOXYHEMOGLOBIN (test code = HOHGBT) 0.3 % 0-5.0 N METHEMOGLOBIN (test code = METHGB) <0.8 % 0-1.5 N HHb (test code = HHB) 2.2 % TCO2 ARTERIAL (test code = TCO2A) 23.8 MMOL/L 24-30 L [id number] 04:17:00* Test Item Value Reference Range Interpretation Comme [facility] GLUBED (test code = GLUBED) 122 MG/DL 70-105 H VENOUS BLOOD [id number] 04:17:00* Test Item Value Reference Range Interpretation Comme [facility] VENOUS BLOOD GAS PH (test code = PHV) 7.35 7.35-7.45 N VENOUS BLOOD GAS PCO2 (test code = PCO2V) 44.4 mmHg See_Comment [Automated messa ge] The system which generated this result transmitted reference range: 46. The reference range was not used to interpret this result as normal/abnormal. VENOUS BLOOD GAS PO2 (test code = PO2V) 34.1 mmHg See_Comment [Automated messa ge] The system which generated this result transmitted reference range: 40. The reference range was not used to interpret this result as normal/abnormal. VBG HCO3 (test code = HCO3V) 24 meq/L VBG BASE EXCESS (test code = ROLA) -1.9 MMOL/L VENOUS BLOOD GAS O2 SAT (test code = O2SATV) 73 % See_Comment [Automated messa ge] The system which generated this result transmitted reference range: 75. The reference range was not used to interpret this result as normal/abnormal. VENOUS BLOOD GAS TYPE (test code = TYPEV) Venous VENOUS BLOOD GAS FIO2 (test code = FIO2V) 28.0 % VBG VENT MODE (test code = MODEV) NC BASIC METABOLIC [id number] 03:47:00* Test Item Value Reference Range Interpretation Comme [facility] SODIUM (test code = NA) 144 mmol/L 136-145 N POTASSIUM (test code = K) 4.4 mmol/L 3.5-5.1 N CHLORIDE (test code = CL) 114 mmol/l 98-107 H CARBON DIOXIDE (test code = CO2) 22 mmol/L 20-31 N GLUCOSE (test code = GLU) 125 mg/dL 74-106 H BLOOD UREA NITROGEN (test code = BUN) 10 mg/dL 9-23 N GLOMERULAR FILTRATION RATE (test code = GFR) >=60 max estimate mL/min >60 The Glomerular Filtration Rate is a calculated parameterbased on serum Creatinine, patient age and sex. GFR valuesless than 60 mL/min/1.73 square meters are indicative ofChronic Kidney Disease. Values less than 15 mL/min/1.73square meters indicate Kidney failure. The calculation forGFR is based on the CKD-EPI (2020) calculation. This formulais race indifferent and is the recommended formula for GFRby the National Kidney Foundation for Adults.The GFR will not calculate if the sex is unknown or if thepatient's age is <18 years. CREATININE (test code = CREAT) 1.00 mg/dL 0.70-1.30 N CALCIUM (test code = CA) 9.4 mg/dL 8.7-10.4 N LIVER FUNCTION [id number] 03:47:00* Test Item Value Reference Range Interpretation Comme nts TOTAL PROTEIN (test code = PROT) 5.3 g/dL 5.7-8.2 L ALBUMIN (test code = ALB) 3.4 g/dL 3.2-4.8 N BILIRUBIN TOTAL (test code = BILT) 0.5 mg/dL 0.3-1.2 N BILIRUBIN DIRECT (test code = BILD) 0.2 mg/dL <0.3 N SGOT/AST (test code = AST) 71 U/L <34 H SGPT/ALT (test code = ALT) 16 U/L 10-49 N ALKALINE PHOSPHATASE (test c ode = ALKP) 27.0 U/L 46-116 L [id number] 03:47:00* Test Item Value Reference Range Interpretation Comme nts PHOSPHOROUS (test code = PHOS) 4.0 mg/dL 2.4-5.1 [id number] 03:47:00* Test Item Value Reference Range Interpretation Comme nts MAGNESIUM (test code = MAG) 2.0 mg/dL 1.6-2.6 N LACTIC [id number] 03:46:00* Test Item Value Reference Range Interpretation Comme nts LACTIC ACID (test code = LACT) 1.30 mmol/L 0.5-2.0 N PROTHROMBIN [id number] 03:38:00* Test Item Value Reference Range Interpretation Comme nts PROTHROMBIN TIME PATIENT (test code = PTP) 13.1 SECONDS 10.3-12.9 H INTERNATIONAL NORMAL RATIO (test code = INR) 1.17 0.9-1.11 H INR goals are individualized based on patient specificfactors. The following are only general guidelines: Indications: INR Goal:1. Treatment of venous thromboembolism and 2.0 - 3.0 systemic anticoagulation in a variety of conditions, including atrial fibrillation and mechanical heart valves 2. Mechanical mitral and tricuspid valves, 2.5 - 3.5 systemic anticoagulation for high-risk conditions THROMBOPLASTIN TIME [id number] 03:38:00* Test Item Value Reference Range Interpretation Comme nts THROMBOPLASTIN TIME PARTIAL (test code = PTT) 29.1 secs 23.8-34.8 N INTERPRETATIVE D PINEDA: Therapeutic range: Unfractionated Heparin: 60-90 seconds Argatroban: 60-90 seconds [id number] 03:38:00* Test Item Value Reference Range Interpretation Comme nts FIBRINOGEN (test code = FIB) 189 mg/dL 200-400 L CBC W/AUTO [id number] 03:35:00* Test Item Value Reference Range Interpretation Comme nts WHITE BLOOD CELL (test code = WBC) 14.8 x10 3/uL 4.8-10.8 H RED BLOOD CELL (test code = RBC) 2.86 x10 6/uL 4.70-6.10 L HEMOGLOBIN (test code = HGB) 9.3 g/dL 14.0-18.0 L HEMATOCRIT (test code = HCT) 26.4 % 42.0-52.0 L MEAN CELL VOLUME (test code = MCV) 92.3 fL 80.0-94.0 N MEAN CELL HGB (test code = MCH) 32.5 pg 27-31 H MEAN CELL HGB CONCENTRATION (test code = MCHC) 35.2 G/DL 33-36.5 N RED CELL DISTRIBUTION WIDTH (test code = RDW) 14.0 % 12.9-16.9 N PLATELET COUNT (test code = PLT) 118 x10 3/uL 150-440 L MEAN PLATELET VOLUME (test code = MPV) 10.1 fL 8.9-12.4 N NEUTROPHIL % (test code = NT%) 88.7 % 42.2-75.2 H LYMPHOCYTE % (test code = LY%) 2.3 % 20.5-51.1 L MONOCYTE % (test code = MO%) 8.4 % 1.7-9.3 N EOSINOPHIL % (test code = EO%) 0.0 % 0.0-7.0 N BASOPHIL % (test code = BA%) 0.1 % 0-2.5 N NEUTROPHIL # (test code = NT#) 13.15 x10 3/uL 1.80-7.70 H LYMPHOCYTE # (test code = LY#) 0.34 x10 3/uL 1.00-4.80 L MONOCYTE # (test code = MO#) 1.25 x10 3/uL 0.00-0.80 H EOSINOPHIL # (test code = EO#) 0.00 x10 3/uL 0.00-0.45 N BASOPHIL # (test code = BA#) 0.01 x10 3/uL 0.0-0.20 N [id number] 02:24:00* Test Item Value Reference Range Interpretation Comme nts GLUBED (test code = GLUBED) 134 MG/DL 70-105 H [id number] 01:17:00* Test Item Value Reference Range Interpretation Comme nts GLUBED (test code = GLUBED) 93 MG/DL 70-105 N BLOOD GAS [id number] 00:37:00* Test Item Value Reference Range Interpretation Comme nts ARTERIAL BLOOD GAS PH (test code = PHA) 7.38 7.35-7.45 N ARTERIAL BLOOD GAS PCO2 (test code = PCO2A) 35.7 mmHg 35.0-45.0 N ARTERIAL BLOOD GAS PO2 (test code = PO2A) 117.8 mmHg 80.0-95.0 H BICARBONATE TOTAL HCO3 (test code = HCO3) 20.8 mmol/L 22.0-24.0 L BASE EXCESS (test code = PRATIBHA) -3.8 mmol/L See_Comment L [Automated message] The system which generated this result transmitted reference range: (+/-)2.0. The reference range was not used to interpret this result as normal/abnormal. ABG O2 SATURATION (test code = SATA) 97.8 % 95.0-100.0 N ARTERIAL FIO2 (test code = FIO2A) 32.0 % ABG VENT MODE (test code = MODEA) NASAL CANNULA ALLENS TEST (test code = ALLENS) No SODIUM (POC) (test code = NA/ABG) 141 mmol/L 135-147 N POTASSIUM (POC) (test code = K/ABG) 4.02 mmol/L 3.6-5.2 N CHLORIDE (ARTERIAL) (test code = CL/ABG) 108 mmol/L 98-108 N GLUCOSE (test code = GLU/ABG) 111 mg/dL 70-104 H IONIZED CALCIUM (test code = CAIABG) 1.17 mmol/L 1.12-1.32 N POC LACTIC ACID (test code = POCLAC) 3.61 mmol/L 0.5-2.2 H TOTAL HGB (test code = THB) 10.3 g/dL 13.0-17.0 L OXYHEMOGLOBIN (test code = OOHGBT) 97.0 % 92.0-98.0 N CARBOXYHEMOGLOBIN (test code = HOHGBT) 0.3 % 0-5.0 N METHEMOGLOBIN (test code = METHGB) <0.8 % 0-1.5 N HHb (test code = HHB) 2.2 % TCO2 ARTERIAL (test code = TCO2A) 21.9 MMOL/L 24-30 L BLOOD GAS [id number] 00:37:00* Test Item Value Reference Range Interpretation Comme nts ARTERIAL BLOOD GAS PH (test code = PHA) 7.32 7.35-7.45 L ARTERIAL BLOOD GAS PCO2 (test code = PCO2A) 35.0 mmHg 35.0-45.0 N ARTERIAL BLOOD GAS PO2 (test code = PO2A) 87.3 mmHg 80.0-95.0 N BICARBONATE TOTAL HCO3 (test code = HCO3) 17.5 mmol/L 22.0-24.0 L BASE EXCESS (test code = PRATIBHA) -7.8 mmol/L See_Comment L [Automated message] The system which generated this result transmitted reference range: (+/-)2.0. The reference range was not used to interpret this result as normal/abnormal. ABG O2 SATURATION (test code = SATA) 97.0 % 95.0-100.0 N ARTERIAL FIO2 (test code = FIO2A) 32.0 % ABG VENT MODE (test code = MODEA) NASAL CANNULA ALLENS TEST (test code = ALLENS) No SODIUM (POC) (test code = NA/ABG) 143 mmol/L 135-147 N POTASSIUM (POC) (test code = K/ABG) 3.76 mmol/L 3.6-5.2 N CHLORIDE (ARTERIAL) (test code = CL/ABG) 109 mmol/L 98-108 H GLUCOSE (test code = GLU/ABG) 185 mg/dL 70-104 H IONIZED CALCIUM (test code = CAIABG) 1.24 mmol/L 1.12-1.32 N POC LACTIC ACID (test code = POCLAC) 8.02 mmol/L 0.5-2.2 H TOTAL HGB (test code = THB) 11.2 g/dL 13.0-17.0 L OXYHEMOGLOBIN (test code = OOHGBT) 95.7 % 92.0-98.0 N CARBOXYHEMOGLOBIN (test code = HOHGBT) 0.8 % 0-5.0 N METHEMOGLOBIN (test code = METHGB) <0.8 % 0-1.5 N HHb (test code = HHB) 3.0 % TCO2 ARTERIAL (test code = TCO2A) 18.6 MMOL/L 24-30 L [id number] 23:22:00* Test Item Value Reference Range Interpretation Comme nts GLUBED (test code = GLUBED) 127 MG/DL 70-105 H [id number] 22:20:00* Test Item Value Reference Range Interpretation Comme nts GLUBED (test code = GLUBED) 155 MG/DL 70-105 H [id number] 21:18:00* Test Item Value Reference Range Interpretation Comme nts GLUBED (test code = GLUBED) 174 MG/DL 70-105 H BASIC METABOLIC [id number] 20:59:00* Test Item Value Reference Range Interpretation Comme nts SODIUM (test code = NA) 148 mmol/L 136-145 H POTASSIUM (test code = K) 3.8 mmol/L 3.5-5.1 N CHLORIDE (test code = CL) 112 mmol/l 98-107 H CARBON DIOXIDE (test code = CO2) 19 mmol/L 20-31 L GLUCOSE (test code = GLU) 175 mg/dL 74-106 H BLOOD UREA NITROGEN (test code = BUN) 11 mg/dL 9-23 N GLOMERULAR FILTRATION RATE (test code = GFR) >=60 max estimate mL/min >60 The Glomerular Filtration Rate is a calculated parameterbased on serum Creatinine, patient age and sex. GFR valuesless than 60 mL/min/1.73 square meters are indicative ofChronic Kidney Disease. Values less than 15 mL/min/1.73square meters indicate Kidney failure. The calculation forGFR is based on the CKD-EPI (202) calculation. This formulais race indifferent and is the recommended formula for GFRby the National Kidney Foundation for Adults.The GFR will not calculate if the sex is unknown or if thepatient's age is <18 years. CREATININE (test code = CREAT) 1.20 mg/dL 0.70-1.30 N CALCIUM (test code = CA) 8.9 mg/dL 8.7-10.4 N [id number] 20:59:00* Test Item Value Reference Range Interpretation Comme nts MAGNESIUM (test code = MAG) 2.0 mg/dL 1.6-2.6 N CBC W/AUTO [id number] 20:49:00* Test Item Value Reference Range Interpretation Comme nts WHITE BLOOD CELL (test code = WBC) 15.9 x10 3/uL 4.8-10.8 H RED BLOOD CELL (test code = RBC) 3.20 x10 6/uL 4.70-6.10 L HEMOGLOBIN (test code = HGB) 10.5 g/dL 14.0-18.0 L HEMATOCRIT (test code = HCT) 29.0 % 42.0-52.0 L MEAN CELL VOLUME (test code = MCV) 90.6 fL 80.0-94.0 N MEAN CELL HGB (test code = MCH) 32.8 pg 27-31 H MEAN CELL HGB CONCENTRATION (test code = MCHC) 36.2 G/DL 33-36.5 N RED CELL DISTRIBUTION WIDTH (test code = RDW) 13.9 % 12.9-16.9 N PLATELET COUNT (test code = PLT) 139 x10 3/uL 150-440 L MEAN PLATELET VOLUME (test code = MPV) 9.8 fL 8.9-12.4 N NEUTROPHIL % (test code = NT%) 92.0 % 42.2-75.2 H LYMPHOCYTE % (test code = LY%) 1.3 % 20.5-51.1 L MONOCYTE % (test code = MO%) 6.2 % 1.7-9.3 N EOSINOPHIL % (test code = EO%) 0.0 % 0.0-7.0 N BASOPHIL % (test code = BA%) 0.1 % 0-2.5 N NEUTROPHIL # (test code = NT#) 14.63 x10 3/uL 1.80-7.70 H LYMPHOCYTE # (test code = LY#) 0.20 x10 3/uL 1.00-4.80 L MONOCYTE # (test code = MO#) 0.98 x10 3/uL 0.00-0.80 H EOSINOPHIL # (test code = EO#) 0.00 x10 3/uL 0.00-0.45 N BASOPHIL # (test code = BA#) 0.02 x10 3/uL 0.0-0.20 N [id number] 19:16:00* Test Item Value Reference Range Interpretation Comme nts GLUBED (test code = GLUBED) 204 MG/DL 70-105 H LACTIC [id number] 18:47:00* Test Item Value Reference Range Interpretation Comme nts LACTIC ACID (test code = LACT) 9.30 mmol/L 0.5-2.0 HH Critical Value r eported toFirst Name:PAULY RUFF Last Name:RESULTS READ BACK AND VERIFIEDby [id number], on 06/04/24, @ 9691. COMPREHENSIVE METABOLIC [id number] 18:47:00* Test Item Value Reference Range Interpretation Comme nts SODIUM (test code = NA) 147 mmol/L 136-145 H POTASSIUM (test code = K) 4.3 mmol/L 3.5-5.1 CHLORIDE (test code = CL) 111 mmol/l 98-107 H CARBON DIOXIDE (test code = CO2) 21 mmol/L 20-31 N GLUCOSE (test code = GLU) 216 mg/dL 74-106 H BLOOD UREA NITROGEN (test code = BUN) 14 mg/dL 9-23 N GLOMERULAR FILTRATION RATE (test code = GFR) >=60 max estimate mL/min >60 The Glomerular Filtration Rate is a calculated parameterbased on serum Creatinine, patient age and sex. GFR valuesless than 60 mL/min/1.73 square meters are indicative ofChronic Kidney Disease. Values less than 15 mL/min/1.73square meters indicate Kidney failure. The calculation forGFR is based on the CKD-EPI (2020) calculation. This formulais race indifferent and is the recommended formula for GFRby the National Kidney Foundation for Adults.The GFR will not calculate if the sex is unknown or if thepatient's age is <18 years. CREATININE (test code = CREAT) 1.20 mg/dL 0.70-1.30 N TOTAL PROTEIN (test code = PROT) 5.7 g/dL 5.7-8.2 N ALBUMIN (test code = ALB) 3.8 g/dL 3.2-4.8 N CALCIUM (test code = CA) 8.3 mg/dL 8.7-10.4 L BILIRUBIN TOTAL (test code = BILT) 0.9 mg/dL 0.3-1.2 N SGOT/AST (test code = AST) 78 U/L <34 H SGPT/ALT (test code = ALT) 19 U/L 10-49 N ALKALINE PHOSPHATASE (test code = ALKP) 31.0 U/L 46-116 L [id number] 18:47:00* Test Item Value Reference Range Interpretation Comme nts PHOSPHOROUS (test code = PHOS) 0.8 mg/dL 2.4-5.1 LL Critical Value reported toFirst Name:PAULY RUFF Last Name:RESULTS READ BACK AND VERIFIEDby [id number], on 06/04/24, @ 1847. [id number] 18:47:00* Test Item Value Reference Range Interpretation Comme nts MAGNESIUM (test code = MAG) 2.1 mg/dL 1.6-2.6 N PROTHROMBIN [id number] 18:46:00* Test Item Value Reference Range Interpretation Comme nts PROTHROMBIN TIME PATIENT (test code = PTP) 13.5 SECONDS 10.3-12.9 H INTERNATIONAL NORMAL RATIO (test code = INR) 1.21 0.9-1.11 H INR goals are individualized based on patient specificfactors. The following are only general guidelines: Indications: INR Goal:1. Treatment of venous thromboembolism and 2.0 - 3.0 systemic anticoagulation in a variety of conditions, including atrial fibrillation and mechanical heart valves 2. Mechanical mitral and tricuspid valves, 2.5 - 3.5 systemic anticoagulation for high-risk conditions THROMBOPLASTIN TIME [id number] 18:46:00* Test Item Value Reference Range Interpretation Comme nts THROMBOPLASTIN TIME PARTIAL (test code = PTT) 29.8 secs 23.8-34.8 N INTERPRETATIVE D PINEDA: Therapeutic range: Unfractionated Heparin: 60-90 seconds Argatroban: 60-90 seconds [id number] 18:46:00* Test Item Value Reference Range Interpretation Comme nts FIBRINOGEN (test code = FIB) 174 mg/dL 200-400 L CBC W/AUTO [id number] 18:30:00* Test Item Value Reference Range Interpretation Comme nts WHITE BLOOD CELL (test code = WBC) 16.9 x10 3/uL 4.8-10.8 H RED BLOOD CELL (test code = RBC) 3.29 x10 6/uL 4.70-6.10 L HEMOGLOBIN (test code = HGB) 10.7 g/dL 14.0-18.0 L HEMATOCRIT (test code = HCT) 30.3 % 42.0-52.0 L MEAN CELL VOLUME (test code = MCV) 92.1 fL 80.0-94.0 N MEAN CELL HGB (test code = MCH) 32.5 pg 27-31 H MEAN CELL HGB CONCENTRATION (test code = MCHC) 35.3 G/DL 33-36.5 N RED CELL DISTRIBUTION WIDTH (test code = RDW) 13.9 % 12.9-16.9 N PLATELET COUNT (test code = PLT) 141 x10 3/uL 150-440 L MEAN PLATELET VOLUME (test code = MPV) 9.4 fL 8.9-12.4 N NEUTROPHIL % (test code = NT%) 91.3 % 42.2-75.2 H LYMPHOCYTE % (test code = LY%) 1.8 % 20.5-51.1 L MONOCYTE % (test code = MO%) 6.3 % 1.7-9.3 N EOSINOPHIL % (test code = EO%) 0.0 % 0.0-7.0 N BASOPHIL % (test code = BA%) 0.1 % 0-2.5 N NEUTROPHIL # (test code = NT#) 15.38 x10 3/uL 1.80-7.70 H LYMPHOCYTE # (test code = LY#) 0.31 x10 3/uL 1.00-4.80 L MONOCYTE # (test code = MO#) 1.07 x10 3/uL 0.00-0.80 H EOSINOPHIL # (test code = EO#) 0.00 x10 3/uL 0.00-0.45 N BASOPHIL # (test code = BA#) 0.02 x10 3/uL 0.0-0.20 N BLOOD GAS [id number] 18:30:00* Test Item Value Reference Range Interpretation Comme nts ARTERIAL BLOOD GAS PH (test code = PHA) 7.30 7.35-7.45 L ARTERIAL BLOOD GAS PCO2 (test code = PCO2A) 39.8 mmHg 35.0-45.0 N ARTERIAL BLOOD GAS PO2 (test code = PO2A) 115.0 mmHg 80.0-95.0 H BICARBONATE TOTAL HCO3 (test code = HCO3) 19.0 mmol/L 22.0-24.0 L BASE EXCESS (test code = PRATIBHA) -6.9 mmol/L See_Comment L [Automated message] The system which generated this result transmitted reference range: (+/-)2.0. The reference range was not used to interpret this result as normal/abnormal. ABG O2 SATURATION (test code = SATA) 97.5 % 95.0-100.0 N ARTERIAL FIO2 (test code = FIO2A) 32.0 % ABG VENT MODE (test code = MODEA) NASAL CANNULA ALLENS TEST (test code = ALLENS) NOT APPLICABLE SODIUM (POC) (test code = NA/ABG) 143 mmol/L 135-147 N POTASSIUM (POC) (test code = K/ABG) 4.28 mmol/L 3.6-5.2 N CHLORIDE (ARTERIAL) (test code = CL/ABG) 106 mmol/L 98-108 N GLUCOSE (test code = GLU/ABG) 233 mg/dL 70-104 H IONIZED CALCIUM (test code = CAIABG) 1.19 mmol/L 1.12-1.32 N POC LACTIC ACID (test code = POCLAC) 8.58 mmol/L 0.5-2.2 H TOTAL HGB (test code = THB) 11.3 g/dL 13.0-17.0 L OXYHEMOGLOBIN (test code = OOHGBT) 96.7 % 92.0-98.0 N CARBOXYHEMOGLOBIN (test code = HOHGBT) 0.2 % 0-5.0 N METHEMOGLOBIN (test code = METHGB) <0.8 % 0-1.5 N HHb (test code = HHB) 2.5 % TCO2 ARTERIAL (test code = TCO2A) 20.2 MMOL/L 24-30 L BLOOD GAS [id number] 16:12:00* Test Item Value Reference Range Interpretation Comme nts ARTERIAL BLOOD GAS PH (test code = PHA) 7.39 7.35-7.45 N ARTERIAL BLOOD GAS PCO2 (test code = PCO2A) 37.2 mmHg 35.0-45.0 N ARTERIAL BLOOD GAS PO2 (test code = PO2A) 113.3 mmHg 80.0-95.0 H BICARBONATE TOTAL HCO3 (test code = HCO3) 22.0 mmol/L 22.0-24.0 N BASE EXCESS (test code = PRATIBHA) -2.6 mmol/L See_Comment L [Automated message] The system which generated this result transmitted reference range: (+/-)2.0. The reference range was not used to interpret this result as normal/abnormal. ABG O2 SATURATION (test code = SATA) 97.8 % 95.0-100.0 N ARTERIAL FIO2 (test code = FIO2A) 40.0 % ABG VENT MODE (test code = MODEA) NASAL CANNULA ALLENS TEST (test code = ALLENS) NOT APPLICABLE SODIUM (POC) (test code = NA/ABG) 142 mmol/L 135-147 N POTASSIUM (POC) (test code = K/ABG) 3.72 mmol/L 3.6-5.2 N CHLORIDE (ARTERIAL) (test code = CL/ABG) 106 mmol/L 98-108 N GLUCOSE (test code = GLU/ABG) 248 mg/dL 70-104 H IONIZED CALCIUM (test code = CAIABG) 1.18 mmol/L 1.12-1.32 N POC LACTIC ACID (test code = POCLAC) 5.25 mmol/L 0.5-2.2 H TOTAL HGB (test code = THB) 11.5 g/dL 13.0-17.0 L OXYHEMOGLOBIN (test code = OOHGBT) 97.1 % 92.0-98.0 N CARBOXYHEMOGLOBIN (test code = HOHGBT) 0.2 % 0-5.0 N METHEMOGLOBIN (test code = METHGB) <0.8 % 0-1.5 N HHb (test code = HHB) 2.2 % TCO2 ARTERIAL (test code = TCO2A) 23.1 MMOL/L 24-30 L VENOUS BLOOD [id number] 14:36:00* Test Item Value Reference Range Interpretation Comme [facility] VENOUS BLOOD GAS PH (test code = PHV) 7.34 7.35-7.45 L VENOUS BLOOD GAS PCO2 (test code = PCO2V) 59.0 mmHg See_Comment [Automated messa ge] The system which generated this result transmitted reference range: 46. The reference range was not used to interpret this result as normal/abnormal. VENOUS BLOOD GAS PO2 (test code = PO2V) 39.5 mmHg See_Comment [Automated messa ge] The system which generated this result transmitted reference range: 40. The reference range was not used to interpret this result as normal/abnormal. VBG HCO3 (test code = HCO3V) 31 meq/L VBG BASE EXCESS (test code = ROLA) 4.0 MMOL/L VENOUS BLOOD GAS O2 SAT (test code = O2SATV) 77 % See_Comment [Automated messa ge] The system which generated this result transmitted reference range: 75. The reference range was not used to interpret this result as normal/abnormal. VENOUS BLOOD GAS TYPE (test code = TYPEV) Venous VENOUS BLOOD GAS FIO2 (test code = FIO2V) 50.0 % VBG VENT MODE (test code = MODEV) Ventilator BLOOD GAS [id number] 14:35:00* Test Item Value Reference Range Interpretation Comme [facility] ARTERIAL BLOOD GAS PH (test code = PHA) 7.37 7.35-7.45 N ARTERIAL BLOOD GAS PCO2 (test code = PCO2A) 32.7 mmHg 35.0-45.0 L ARTERIAL BLOOD GAS PO2 (test code = PO2A) 325.6 mmHg 80.0-95.0 H BICARBONATE TOTAL HCO3 (test code = HCO3) 18.3 mmol/L 22.0-24.0 L BASE EXCESS (test code = PRATIBHA) -6.2 mmol/L See_Comment L [Automated message] The system which generated this result transmitted reference range: (+/-)2.0. The reference range was not used to interpret this result as normal/abnormal. ABG O2 SATURATION (test code = SATA) 98.8 % 95.0-100.0 N ARTERIAL FIO2 (test code = FIO2A) 80.0 % ABG VENT MODE (test code = MODEA) Ventilator ALLENS TEST (test code = ALLENS) NOT APPLICABLE SODIUM (POC) (test code = NA/ABG) 138 mmol/L 135-147 N POTASSIUM (POC) (test code = K/ABG) 3.09 mmol/L 3.6-5.2 L CHLORIDE (ARTERIAL) (test code = CL/ABG) 106 mmol/L 98-108 N GLUCOSE (test code = GLU/ABG) 218 mg/dL 70-104 H IONIZED CALCIUM (test code = CAIABG) 1.13 mmol/L 1.12-1.32 N POC LACTIC ACID (test code = POCLAC) 4.51 mmol/L 0.5-2.2 H TOTAL HGB (test code = THB) 11.1 g/dL 13.0-17.0 L OXYHEMOGLOBIN (test code = OOHGBT) 98.1 % 92.0-98.0 H CARBOXYHEMOGLOBIN (test code = HOHGBT) 0.2 % 0-5.0 N METHEMOGLOBIN (test code = METHGB) <0.8 % 0-1.5 N HHb (test code = HHB) 1.2 % TCO2 ARTERIAL (test code = TCO2A) 19.3 MMOL/L 24-30 L LACTIC [id number] 13:47:00* Test Item Value Reference Range Interpretation Comme nts LACTIC ACID (test code = LACT) 5.00 mmol/L 0.5-2.0 HH Critical Value r eported toFirst Name:BLANQUITA Last Name:CATHY READ BACK AND VERIFIEDby [id number], on 06/04/24, @ 9456. BASIC METABOLIC [id number] 13:38:00* Test Item Value Reference Range Interpretation Comme nts SODIUM (test code = NA) 144 mmol/L 136-145 N POTASSIUM (test code = K) 3.2 mmol/L 3.5-5.1 L CHLORIDE (test code = CL) 109 mmol/l 98-107 H CARBON DIOXIDE (test code = CO2) 20 mmol/L 20-31 N GLUCOSE (test code = GLU) 212 mg/dL 74-106 H BLOOD UREA NITROGEN (test code = BUN) 10 mg/dL 9-23 N GLOMERULAR FILTRATION RATE (test code = GFR) >=60 max estimate mL/min >60 The Glomerular Filtration Rate is a calculated parameterbased on serum Creatinine, patient age and sex. GFR valuesless than 60 mL/min/1.73 square meters are indicative ofChronic Kidney Disease. Values less than 15 mL/min/1.73square meters indicate Kidney failure. The calculation forGFR is based on the CKD-EPI (2020) calculation. This formulais race indifferent and is the recommended formula for GFRby the National Kidney Foundation for Adults.The GFR will not calculate if the sex is unknown or if thepatient's age is <18 years. CREATININE (test code = CREAT) 1.00 mg/dL 0.70-1.30 N CALCIUM (test code = CA) 8.1 mg/dL 8.7-10.4 L [id number] 13:38:00* Test Item Value Reference Range Interpretation Comme nts PHOSPHOROUS (test code = PHOS) 1.7 mg/dL 2.4-5.1 L [id number] 13:38:00* Test Item Value Reference Range Interpretation Comme nts MAGNESIUM (test code = MAG) 3.0 mg/dL 1.6-2.6 H PROTHROMBIN [id number] 13:37:00* Test Item Value Reference Range Interpretation Comme nts PROTHROMBIN TIME PATIENT (test code = PTP) 16.7 SECONDS 10.3-12.9 H INTERNATIONAL NORMAL RATIO (test code = INR) 1.50 0.9-1.11 H INR goals are individualized based on patient specificfactors. The following are only general guidelines: Indications: INR Goal:1. Treatment of venous thromboembolism and 2.0 - 3.0 systemic anticoagulation in a variety of conditions, including atrial fibrillation and mechanical heart valves 2. Mechanical mitral and tricuspid valves, 2.5 - 3.5 systemic anticoagulation for high-risk conditions THROMBOPLASTIN TIME [id number] 13:37:00* Test Item Value Reference Range Interpretation Comme nts THROMBOPLASTIN TIME PARTIAL (test code = PTT) 27.5 secs 23.8-34.8 N INTERPRETATIVE D PINEDA: Therapeutic range: Unfractionated Heparin: 60-90 seconds Argatroban: 60-90 seconds CBC W/AUTO [id number] 13:23:00* Test Item Value Reference Range Interpretation Comme nts WHITE BLOOD CELL (test code = WBC) 20.8 x10 3/uL 4.8-10.8 H RED BLOOD CELL (test code = RBC) 3.27 x10 6/uL 4.70-6.10 L HEMOGLOBIN (test code = HGB) 10.5 g/dL 14.0-18.0 L HEMATOCRIT (test code = HCT) 30.1 % 42.0-52.0 L MEAN CELL VOLUME (test code = MCV) 92.0 fL 80.0-94.0 N MEAN CELL HGB (test code = MCH) 32.1 pg 27-31 H MEAN CELL HGB CONCENTRATION (test code = MCHC) 34.9 G/DL 33-36.5 N RED CELL DISTRIBUTION WIDTH (test code = RDW) 13.8 % 12.9-16.9 N PLATELET COUNT (test code = PLT) 131 x10 3/uL 150-440 L MEAN PLATELET VOLUME (test code = MPV) 9.9 fL 8.9-12.4 N NEUTROPHIL % (test code = NT%) 80.8 % 42.2-75.2 H LYMPHOCYTE % (test code = LY%) 12.6 % 20.5-51.1 L MONOCYTE % (test code = MO%) 5.0 % 1.7-9.3 N EOSINOPHIL % (test code = EO%) 0.7 % 0.0-7.0 N BASOPHIL % (test code = BA%) 0.2 % 0-2.5 N NEUTROPHIL # (test code = NT#) 16.82 x10 3/uL 1.80-7.70 H LYMPHOCYTE # (test code = LY#) 2.63 x10 3/uL 1.00-4.80 N MONOCYTE # (test code = MO#) 1.04 x10 3/uL 0.00-0.80 H EOSINOPHIL # (test code = EO#) 0.14 x10 3/uL 0.00-0.45 N BASOPHIL # (test code = BA#) 0.05 x10 3/uL 0.0-0.20 N COAGULATION TIME [id number] 11:57:00* Test Item Value Reference Range Interpretation Comme nts COAGULATION TIME ACTIVATED ( test code = ACT) 116 SECONDS 74-137 N COAGULATION TIME [id number] 10:53:00* Test Item Value Reference Range Interpretation Comme nts COAGULATION TIME ACTIVATED ( test code = ACT) 482 SECONDS 74-137 H COAGULATION TIME [id number] 10:19:00* Test Item Value Reference Range Interpretation Comme nts COAGULATION TIME ACTIVATED ( test code = ACT) 519 SECONDS 74-137 H COAGULATION TIME [id number] 09:40:00* Test Item Value Reference Range Interpretation Comme nts COAGULATION TIME ACTIVATED ( test code = ACT) 501 SECONDS 74-137 H COMPREHENSIVE METABOLIC [id number] 04:04:00* Test Item Value Reference Range Interpretation Comme nts SODIUM (test code = NA) 141 mmol/L 136-145 N POTASSIUM (test code = K) 4.5 mmol/L 3.5-5.1 N CHLORIDE (test code = CL) 107 mmol/l 98-107 N CARBON DIOXIDE (test code = CO2) 28 mmol/L 20-31 N GLUCOSE (test code = GLU) 97 mg/dL 74-106 N BLOOD UREA NITROGEN (test code = BUN) 9 mg/dL 9-23 N GLOMERULAR FILTRATION RATE (test code = GFR) >=60 max estimate mL/min >60 The Glomerular Filtration Rate is a calculated parameterbased on serum Creatinine, patient age and sex. GFR valuesless than 60 mL/min/1.73 square meters are indicative ofChronic Kidney Disease. Values less than 15 mL/min/1.73square meters indicate Kidney failure. The calculation forGFR is based on the CKD-EPI (2020) calculation. This formulais race indifferent and is the recommended formula for GFRby the National Kidney Foundation for Adults.The GFR will not calculate if the sex is unknown or if thepatient's age is <18 years. CREATININE (test code = CREAT) 0.90 mg/dL 0.70-1.30 N TOTAL PROTEIN (test code = PROT) 6.4 g/dL 5.7-8.2 N ALBUMIN (test code = ALB) 3.9 g/dL 3.2-4.8 N CALCIUM (test code = CA) 8.5 mg/dL 8.7-10.4 L BILIRUBIN TOTAL (test code = BILT) 0.7 mg/dL 0.3-1.2 N SGOT/AST (test code = AST) 45 U/L <34 H SGPT/ALT (test code = ALT) 17 U/L 10-49 N ALKALINE PHOSPHATASE (test code = ALKP) 41.0 U/L 46-116 L [id number] 04:04:00* Test Item Value Reference Range Interpretation Comme nts PHOSPHOROUS (test code = PHOS) 3.3 mg/dL 2.4-5.1 N [id number] 04:04:00* Test Item Value Reference Range Interpretation Comme nts MAGNESIUM (test code = MAG) 2.1 mg/dL 1.6-2.6 N PROTHROMBIN [id number] 03:50:00* Test Item Value Reference Range Interpretation Comme [facility] PROTHROMBIN TIME PATIENT (test code = PTP) 11.3 SECONDS 10.3-12.9 N INTERNATIONAL NORMAL RATIO (test code = INR) 1.01 0.9-1.11 N INR goals are individualized based on patient specificfactors. The following are only general guidelines: Indications: INR Goal:1. Treatment of venous thromboembolism and 2.0 - 3.0 systemic anticoagulation in a variety of conditions, including atrial fibrillation and mechanical heart valves 2. Mechanical mitral and tricuspid valves, 2.5 - 3.5 systemic anticoagulation for high-risk conditions THROMBOPLASTIN TIME [id number] 03:50:00* Test Item Value Reference Range Interpretation Comme [facility] THROMBOPLASTIN TIME PARTIAL (test code = PTT) 27.7 secs 23.8-34.8 INTERPRETATIVE D PINEDA: Therapeutic range: Unfractionated Heparin: 60-90 seconds Argatroban: 60-90 seconds [id number] 03:50:00* Test Item Value Reference Range Interpretation Comme [facility] FIBRINOGEN (test code = FIB) 219 mg/dL 200-400 N CBC W/AUTO [id number] 03:31:00* Test Item Value Reference Range Interpretation Comme nts WHITE BLOOD CELL (test code = WBC) 4.9 x10 3/uL 4.8-10.8 N RED BLOOD CELL (test code = RBC) 4.00 x10 6/uL 4.70-6.10 L HEMOGLOBIN (test code = HGB) 12.8 g/dL 14.0-18.0 L HEMATOCRIT (test code = HCT) 35.6 % 42.0-52.0 L MEAN CELL VOLUME (test code = MCV) 89.0 fL 80.0-94.0 N MEAN CELL HGB (test code = MCH) 32.0 pg 27-31 H MEAN CELL HGB CONCENTRATION (test code = MCHC) 36.0 G/DL 33-36.5 N RED CELL DISTRIBUTION WIDTH (test code = RDW) 13.7 % 12.9-16.9 N PLATELET COUNT (test code = PLT) 169 x10 3/uL 150-440 N MEAN PLATELET VOLUME (test c ode = MPV) 9.6 fL 8.9-12.4 N NEUTROPHIL % (test code = NT%) 56.2 % 42.2-75.2 N LYMPHOCYTE % (test code = LY%) 30.0 % 20.5-51.1 N MONOCYTE % (test code = MO%) 9.7 % 1.7-9.3 H EOSINOPHIL % (test code = EO%) 3.3 % 0.0-7.0 N BASOPHIL % (test code = BA%) 0.6 % 0-2.5 N NEUTROPHIL # (test code = NT#) 2.74 x10 3/uL 1.80-7.70 N LYMPHOCYTE # (test code = LY#) 1.46 x10 3/uL 1.00-4.80 N MONOCYTE # (test code = MO#) 0.47 x10 3/uL 0.00-0.80 N EOSINOPHIL # (test code = EO#) 0.16 x10 3/uL 0.00-0.45 N BASOPHIL # (test code = BA#) 0.03 x10 3/uL 0.0-0.20 N UA RFLX MICR CULT IF [id number] 22:18:00* Test Item Value Reference Range Interpretation Comme nts UA COLOR (test code = COLU) LIGHT YELLOW DISCRIPT YELLOW UA APPEARANCE (test code = APPU) CLEAR DISCRIPT CLEAR UA GLUCOSE DIPSTICK (test code = DGLUU) NEGATIVE mg/dL NEGATIVE UA BILIRUBIN DIPSTICK (test code = BILU) NEGATIVE NEGATIVE UA KETONE DIPSTICK (test code = KETU) 5 mg/dL NEGATIVE UA SPECIFIC GRAVITY (test code = SGU) 1.015 1.005-1.030 UA BLOOD DIPSTICK (test code = ZAIDA) NEGATIVE NEGATIVE UA PH DIPSTICK (test code = MALLIKA) 6.5 5.0-9.0 UA PROTEIN DIPSTICK (test code = PROU) NEGATIVE mg/dL NEGATIVE UA UROBILINOGEN DIPSTICK (test code = URO) NORMAL mg/dL 0.2-1.0 UA NITRITE DIPSTICK (test code = MEIR) NEGATIVE NEGATIVE UA LEUKOCYTE ESTERASE DIPSTICK (test code = LEUU) NEGATIVE NEGATIVE UA WBC (test code = WBCU) 0-2 #WBC/HPF 0-2 UA RBC (test code = RBCU) 0-2 #RBC/HPF 0-2 UA BACTERIA (test code = BACU) OCCASIONAL /HPF NONE-TRACE A UA SQUAMOUS CELLS (test code = SQU) NONE SEEN /LPF NONE-TRACE Indication for culture: RiskForSepsis-no oth srcSpecimen Description: CLEAN [id number] 19:51:00* Test Item Value Reference Range Interpretation Comme nts MAGNESIUM (test code = MAG) 2.0 mg/dL 1.6-2.6 N COMPREHENSIVE METABOLIC [id number] 19:51:00* Test Item Value Reference Range Interpretation Comme nts SODIUM (test code = NA) 139 mmol/L 136-145 N POTASSIUM (test code = K) 4.0 mmol/L 3.5-5.1 N CHLORIDE (test code = CL) 107 mmol/l 98-107 N CARBON DIOXIDE (test code = CO2) 25 mmol/L 20-31 N GLUCOSE (test code = GLU) 95 mg/dL 74-106 N BLOOD UREA NITROGEN (test code = BUN) 9 mg/dL 9-23 N GLOMERULAR FILTRATION RATE (test code = GFR) >=60 max estimate mL/min >60 The Glomerular Filtration Rate is a calculated parameterbased on serum Creatinine, patient age and sex. GFR valuesless than 60 mL/min/1.73 square meters are indicative ofChronic Kidney Disease. Values less than 15 mL/min/1.73square meters indicate Kidney failure. The calculation forGFR is based on the CKD-EPI (202) calculation. This formulais race indifferent and is the recommended formula for GFRby the National Kidney Foundation for Adults.The GFR will not calculate if the sex is unknown or if thepatient's age is <18 years. CREATININE (test code = CREAT) 1.00 mg/dL 0.70-1.30 N TOTAL PROTEIN (test code = PROT) 6.6 g/dL 5.7-8.2 N ALBUMIN (test code = ALB) 3.9 g/dL 3.2-4.8 N CALCIUM (test code = CA) 8.7 mg/dL 8.7-10.4 N BILIRUBIN TOTAL (test code = BILT) 0.9 mg/dL 0.3-1.2 N SGOT/AST (test code = AST) 39 U/L <34 H SGPT/ALT (test code = ALT) 19 U/L 10-49 N ALKALINE PHOSPHATASE (test code = ALKP) 45.0 U/L 46-116 L [id number] 19:51:00* Test Item Value Reference Range Interpretation Comme nts PHOSPHOROUS (test code = PHOS) 3.0 mg/dL 2.4-5.1 N B-TYPE NATRIURETIC [id number] 19:49:00* Test Item Value Reference Range Interpretation Comme nts B-TYPE NATRIURETIC PEPTIDE ( test code = BNP) 314 pg/mL <100 H PROTHROMBIN [id number] 19:43:00* Test Item Value Reference Range Interpretation Comme nts PROTHROMBIN TIME PATIENT (test code = PTP) 12.0 SECONDS 10.3-12.9 N INTERNATIONAL NORMAL RATIO (test code = INR) 1.07 0.9-1.11 N INR goals are individualized based on patient specificfactors. The following are only general guidelines: Indications: INR Goal:1. Treatment of venous thromboembolism and 2.0 - 3.0 systemic anticoagulation in a variety of conditions, including atrial fibrillation and mechanical heart valves 2. Mechanical mitral and tricuspid valves, 2.5 - 3.5 systemic anticoagulation for high-risk conditions THROMBOPLASTIN TIME [id number] 19:43:00* Test Item Value Reference Range Interpretation Comme nts THROMBOPLASTIN TIME PARTIAL (test code = PTT) 81.1 secs 23.8-34.8 H INTERPRETATIVE D PINEDA: Therapeutic range: Unfractionated Heparin: 60-90 seconds Argatroban: 60-90 seconds CBC W/AUTO [id number] 19:38:00* Test Item Value Reference Range Interpretation Comme nts WHITE BLOOD CELL (test code = WBC) 4.8 x10 3/uL 4.8-10.8 N RED BLOOD CELL (test code = RBC) 4.04 x10 6/uL 4.70-6.10 L HEMOGLOBIN (test code = HGB) 13.0 g/dL 14.0-18.0 L HEMATOCRIT (test code = HCT) 36.9 % 42.0-52.0 L MEAN CELL VOLUME (test code = MCV) 91.3 fL 80.0-94.0 N MEAN CELL HGB (test code = MCH) 32.2 pg 27-31 H MEAN CELL HGB CONCENTRATION (test code = MCHC) 35.2 G/DL 33-36.5 N RED CELL DISTRIBUTION WIDTH (test code = RDW) 13.7 % 12.9-16.9 N PLATELET COUNT (test code = PLT) 160 x10 3/uL 150-440 N MEAN PLATELET VOLUME (test c ode = MPV) 9.2 fL 8.9-12.4 N NEUTROPHIL % (test code = NT%) 57.8 % 42.2-75.2 N LYMPHOCYTE % (test code = LY%) 29.9 % 20.5-51.1 N MONOCYTE % (test code = MO%) 9.8 % 1.7-9.3 H EOSINOPHIL % (test code = EO%) 1.7 % 0.0-7.0 N BASOPHIL % (test code = BA%) 0.6 % 0-2.5 N NEUTROPHIL # (test code = NT#) 2.79 x10 3/uL 1.80-7.70 N LYMPHOCYTE # (test code = LY#) 1.44 x10 3/uL 1.00-4.80 N MONOCYTE # (test code = MO#) 0.47 x10 3/uL 0.00-0.80 N EOSINOPHIL # (test code = EO#) 0.08 x10 3/uL 0.00-0.45 N BASOPHIL # (test code = BA#) 0.03 x10 3/uL 0.0-0.20 N TROP-I HIGH [id number] 14:59:00* Test Item Value Reference Range Interpretation Comme nts TROP-I HIGH SENSITIVITY (test code = TROPIHS) 3781.3 ng/L 0-78 HH RESULTS CALLED Rashida SALAZARREAD BACK & CONFIRMED? SABRINA SAWYER.[facility] 06/03/24 1459QNS FOR REPEATCAUTION: Units of the current test methodology (ng/L) differfrom the prior test methodology (ng/mL) by a factor of 1000. 99th Percentile Upper Reference Limit (URL):Females: 54 ng/LMales: 79 ng/L In order to distinguish acute elevations of high sensitivitytroponin from other clinical conditions, the FourthUniversal Definition of Myocardial Infarction stressesclinical assessment and the demonstration of a rise and/orfall in serial troponin results above the URL. Results from different methodologies should not be comparedto one another as quantitative results and URLs may varyby method. THROMBOPLASTIN TIME [id number] 13:15:00* Test Item Value Reference Range Interpretation Comme nts THROMBOPLASTIN TIME PARTIAL (test code = PTT) 93.5 SECONDS 26-35 H LIPID PROFILE (CORONARY RISK)2024-06-03 09:31:00* Test Item Value Reference Range Interpretation Comme nts TRIGLYCERIDES (test code = TRIG) 79 MG/DL 0-150 N CHOLESTEROL (test code = CHOL) 201 MG/DL 133-200 H CHOLESTEROL/HDL RATIO (test code = CHOLHDL) 3.87 RATIO See_Comment RISK ASSOC IATED WITH CHOL/HDL RATIOS: RISK MALE FEMALE1/2 AVERAGE 3.43 3.27AVERAGE 4.97 4.442X AVERAGE 9.55 7.053X AVERAGE 23.39 11.04 NOTE THAT THE REFERENCE VALUE IS RELATED TO RISK LEVELS ASRECOMMENDED BY THE [facility], [facility]. [Automated message] The system which generated this result transmitted reference range: 0-. The reference range was not used to interpret this result as normal/abnormal. HDL CHOLESTEROL (test code = HDL) 52 MG/DL See_Comment L [Automated messa ge] The system which generated this result transmitted reference range: 60-. The reference range was not used to interpret this result as normal/abnormal. NON-HDL CHOLESTEROL (test code = NHDL) 149 mg/dL <130 H LIPOPROTEIN LDL (test code = LDL) 118 MG/DL 0-129 N LDL/HDL (test code = LDL/HDL) 2.26 Ratio See_Comment N [Automated getbetter!a Percello] The system which generated this result transmitted reference range: 1.48-3.22 Avg. The reference range was not used to interpret this result as normal/abnormal. T4 [id number] 09:31:00* Test Item Value Reference Range Interpretation Comme nts T4 FREE (test code = T4F) 0.91 NG/DL 0.77-1.61 N THYROID STIMULATING [id number] 09:31:00* Test Item Value Reference Range Interpretation Comme nts THYROID STIMULATING HORMONE (test code = TSH) 5.11 mcIU/ML 0.34-4.82 H TROP-I HIGH [id number] 09:31:00* Test Item Value Reference Range Interpretation Comme nts TROP-I HIGH SENSITIVITY (test code = TROPIHS) 3163.5 ng/L 0-78 HH RESULTS CALLED Rashida JIMENEZREAD BACK & CONFIRMED? SABRINA L.LAB.[facility] 06/03/24 0931CAUTION: Units of the current test methodology (ng/L) differfrom the prior test methodology (ng/mL) by a factor of 1000. 99th Percentile Upper Reference Limit (URL):Females: 54 ng/LMales: 79 ng/L In order to distinguish acute elevations of high sensitivitytroponin from other clinical conditions, the FourthUniversal Definition of Myocardial Infarction stressesclinical assessment and the demonstration of a rise and/orfall in serial troponin results above the URL. Results from different methodologies should not be comparedto one another as quantitative results and URLs may varyby method. GLYCOSYLATED HEMOGLOBIN (HA1C)2024-06-03 09:18:00* Test Item Value Reference Range Interpretation Comme nts GLYCOSYLATED HEMOGLOBIN (HA1 C) (test code = GLYHGB) 5.0 % A1C 4.8-6.0 N THROMBOPLASTIN TIME [id number] 06:38:00* Test Item Value Reference Range Interpretation Comme [facility] TH[facility] TIME PARTIAL (test code = PTT) 68.6 SECONDS 26-35 H TROP-I HIGH [id number] 06:24:00* Test Item Value Reference Range Interpretation Comme [facility] TROP-I HIGH SENSITIVITY (test code = TROPIHS) 3018.5 ng/L 0-78 HH RESULTS CALLED Rashida BARRERA-ELZBIETAREAD BACK & CONFIRMED? [id number] [id number] 06/03/2424CAUTION: Units of the current test methodology (ng/L) differfrom the prior test methodology (ng/mL) by a factor of 1000. 99th Percentile Upper Reference Limit (URL):Females: 54 ng/LMales: 79 ng/L In order to distinguish acute elevations of high sensitivitytroponin from other clinical conditions, the FourthUniversal Definition of Myocardial Infarction stressesclinical assessment and the demonstration of a rise and/orfall in serial troponin results above the URL. Results from different methodologies should not be comparedto one another as quantitative results and URLs may varyby method. COMPREHENSIVE METABOLIC [id number] 05:59:00* Test Item Value Reference Range Interpretation Comme nts SODIUM (test code = NA) 139 mmol/L 136-145 N POTASSIUM (test code = K) 4.0 mmol/L 3.4-5.0 N CHLORIDE (test code = CL) 105 mmol/L 98-107 N CARBON DIOXIDE (test code = CO2) 30 mmol/L 21-32 N ANION GAP (test code = GAP) 4 GAP calc 4-15 N GLUCOSE (test code = GLU) 108 MG/DL 70-110 N BLOOD UREA NITROGEN (test code = BUN) 14 MG/DL 7-18 N GLOMERULAR FILTRATION RATE (test code = GFR) >=60 max estimate estGFR >60 The Glomerular Filtration Rate is a calculated parameterbased on serum Creatinine, patient age and sex. GFR valuesless than 60 mL/min/1.73 square meters are indicative ofChronic Kidney Disease. Values less than 15 mL/min/1.73square meters indicate Kidney failure. The calculation forGFR is based on the CKD-EPI (202) calculation. This formulais race indifferent and is the recommended formula for GFRby the National Kidney Foundation for Adults.The GFR will not calculate if the sex is unknown or if thepatient's age is <18 years. CREATININE (test code = CREAT) 1.0 MG/DL 0.6-1.0 N TOTAL PROTEIN (test code = PROT) 6.5 G/DL 6.4-8.2 N ALBUMIN (test code = ALB) 3.4 G/DL 3.4-5.0 N GLOBULIN (test code = GLOB) 3.1 GM/dL ALBUMIN/GLOBULIN RATIO (test code = A/G) 1.1 RATIO 1.2-2.2 L CALCIUM (test code = CA) 8.9 MG/DL 8.5-10.1 N BILIRUBIN TOTAL (test code = BILT) 0.7 MG/DL 0.0-1.0 N SGOT/AST (test code = AST) 41 Unit/L 15-37 H SGPT/ALT (test code = ALT) 23 Unit/L 30-65 L ALKALINE PHOSPHATASE TOTAL (test code = ALKP) 46 Unit/L 50-136 L THROMBOPLASTIN TIME [id number] 04:37:00* Test Item Value Reference Range Interpretation Comme nts THROMBOPLASTIN TIME PARTIAL (test code = PTT) 148.5 SECONDS 26-35 HH [id number] 04:12:00* Test Item Value Reference Range Interpretation Comme nts PHOSPHOROUS (test code = PHOS) 3.8 MG/DL 2.5-4.9 N [id number] 04:12:00* Test Item Value Reference Range Interpretation Comme nts MAGNESIUM (test code = MAG) 2.0 MG/DL 1.8-2.4 N TROP-I HIGH [id number] 04:12:00* Test Item Value Reference Range Interpretation Comme nts TROP-I HIGH SENSITIVITY (test code = TROPIHS) 2658.3 ng/L 0-78 HH RESULTS CALLED Rashida BARRERA-ELZBIETAREAD BACK & CONFIRMED? [id number] [id number] 06/03/24 0412CAUTION: Units of the current test methodology (ng/L) differfrom the prior test methodology (ng/mL) by a factor of 1000. 99th Percentile Upper Reference Limit (URL):Females: 54 ng/LMales: 79 ng/L In order to distinguish acute elevations of high sensitivitytroponin from other clinical conditions, the FourthUniversal Definition of Myocardial Infarction stressesclinical assessment and the demonstration of a rise and/orfall in serial troponin results above the URL. Results from different methodologies should not be comparedto one another as quantitative results and URLs may varyby method. COMPREHENSIVE METABOLIC [id number] 00:41:00* Test Item Value Reference Range Interpretation Comme nts SODIUM (test code = NA) 140 mmol/L 136-145 N POTASSIUM (test code = K) 3.8 mmol/L 3.4-5.0 N CHLORIDE (test code = CL) 103 mmol/L 98-107 N CARBON DIOXIDE (test code = CO2) 31 mmol/L 21-32 N ANION GAP (test code = GAP) 6 GAP calc 4-15 N GLUCOSE (test code = GLU) 121 MG/DL 70-110 H BLOOD UREA NITROGEN (test code = BUN) 16 MG/DL 7-18 N GLOMERULAR FILTRATION RATE (test code = GFR) >=60 max estimate estGFR >60 The Glomerular Filtration Rate is a calculated parameterbased on serum Creatinine, patient age and sex. GFR valuesless than 60 mL/min/1.73 square meters are indicative ofChronic Kidney Disease. Values less than 15 mL/min/1.73square meters indicate Kidney failure. The calculation forGFR is based on the CKD-EPI (2020) calculation. This formulais race indifferent and is the recommended formula for GFRby the National Kidney Foundation for Adults.The GFR will not calculate if the sex is unknown or if thepatient's age is <18 years. CREATININE (test code = CREAT) 1.1 MG/DL 0.6-1.0 H TOTAL PROTEIN (test code = PROT) 6.7 G/DL 6.4-8.2 N ALBUMIN (test code = ALB) 3.5 G/DL 3.4-5.0 N GLOBULIN (test code = GLOB) 3.2 GM/dL ALBUMIN/GLOBULIN RATIO (test code = A/G) 1.1 RATIO 1.2-2.2 L CALCIUM (test code = CA) 8.9 MG/DL 8.5-10.1 N BILIRUBIN TOTAL (test code = BILT) 0.5 MG/DL 0.0-1.0 N SGOT/AST (test code = AST) 34 Unit/L 15-37 N SGPT/ALT (test code = ALT) 22 Unit/L 30-65 L ALKALINE PHOSPHATASE TOTAL (test code = ALKP) 51 Unit/L 50-136 N NT PRO-BRAIN NATRIURETIC [id number] 00:41:00* Test Item Value Reference Range Interpretation Comme nts NT PRO-BRAIN NATRIURETIC PEP TI (test code = PROBNP) 1824 PG/ML 0-100 H TROP-I HIGH [id number] 00:41:00* Test Item Value Reference Range Interpretation Comme nts TROP-I HIGH SENSITIVITY (test code = TROPIHS) 2441.9 ng/L 0-78 HH RESULTS CALLED Rashida ABREUREAD BACK & CONFIRMED? [id number] [id number] 06/03/24 0041CAUTION: Units of the current test methodology (ng/L) differfrom the prior test methodology (ng/mL) by a factor of 1000. 99th Percentile Upper Reference Limit (URL):Females: 54 ng/LMales: 79 ng/L In order to distinguish acute elevations of high sensitivitytroponin from other clinical conditions, the FourthUniversal Definition of Myocardial Infarction stressesclinical assessment and the demonstration of a rise and/orfall in serial troponin results above the URL. Results from different methodologies should not be comparedto one another as quantitative results and URLs may varyby method. CBC W/AUTO [id number] 00:34:00* Test Item Value Reference Range Interpretation Comme nts WHITE BLOOD CELL (test code = WBC) 6.6 K/mm3 3.5-11.0 N RED BLOOD CELL (test code = RBC) 3.92 M/mm3 4.70-6.10 L HEMOGLOBIN (test code = HGB) 12.4 G/DL 12.3-15.9 N HEMATOCRIT (test code = HCT) 35.6 % 35.8-46.7 L MEAN CELL VOLUME (test code = MCV) 90.8 Fl 86.3-98.9 N MEAN CELL HGB (test code = MCH) 31.6 pg 28.9-34.4 N MEAN CELL HGB CONCETRATION (test code = MCHC) 34.8 G/DL 32.1-34.5 H RED CELL DISTRIBUTION WIDTH (test code = RDW) 13.7 SD 11.5-14.5 N PLATELET COUNT (test code = PLT) 172 K/mm3 150-450 N MEAN PLATELET VOLUME (test c ode = MPV) 9.10 fL 7.0-9.6 N NEUTROPHIL % (test code = NT%) 63.9 % 40-76 N IMMATURE GRANULOCYTE % (test code = IG%) 0.2 % 0.0-5.0 N LYMPHOCYTE % (test code = LY%) 23.6 % 20.5-51.1 N MONOCYTE % (test code = MO%) 8.9 % 1.7-9.3 N EOSINOPHIL % (test code = EO%) 2.9 % 0.0-6.0 N BASOPHIL % (test code = BA%) 0.5 % 0.0-2.0 N NUCLEATED RBC % (test code = NRBC%) 0.0 /100WBC% 0.0-1.0 N NEUTROPHIL # (test code = NT#) 4.2 K/mm3 1.8-7.6 N IMMATURE GRANULOCYTE # (test code = IG#) 0.01 x10 3/uL 0.00-0.03 N LYMPHOCYTE # (test code = LY#) 1.6 K/mm3 0.6-3.0 N MONOCYTE # (test code = MO#) 0.6 K/mm3 0.2-1.5 N EOSINOPHIL # (test code = EO#) 0.2 K/mm3 0.0-0.4 N BASOPHIL # (test code = BA#) 0.0 K/mm3 0.0-0.2 N NUCLEATED RBC # (test code = NRBC#) 0.0 K/mm3 0.00-0.01 N [id number] 15:37:01* Test Item Value Reference Range Interpretation Comme nts QuantaFlo left side (test code = 76890-1G) 1.40-0.90 QuantaFlo right side (test code = 34587-7T) 1.40-0.90 Exercise Modality: At RestNormal - 1.40 - 1.00Borderline - 0.99 - 0.90Mild - 0.89 - 0.60Moderate - 0.59 - 0.30Severe - 0.29 - 0.00 Jolene Lafleur - External Notes Date/Time Note Provider Source 2024-06-09 09:55:00 [facility] ([facility]) Med Order Sheet REPORT #: [id number] REPORT STATUS: Signed DATE: 06/09/24 TIME: 954 PATIENT: KADIE ROCHA UNIT #: [id number] ROOM #: [facility] BED: A : 45 AGE: 78 SEX: M ATTEND: Coby Jain MD ADM AUTHOR: Abigail Ruiz MD ATTENTION *EDITS and/or ADDENDA must be made in Patient Keeper for this note. * * Edits and ammendments created in [facility] are not visible * * in Patient Keeper or the legal medical record (HPF). * Discharge Medication Reconciliation DISCHARGE MEDICATION LIST Acetaminophen Tab (Tylenol Tab) Dose: 650MG PO Q4H PRN temp > 38.5 c, Disp: 60 tablet, Refills: 0 Aspirin EC Tab (Ecotrin Tab) Dose: 81MG PO DAILY, Disp: 90 tablet, Refills: 1 Clopidogrel Tab (Plavix Tab) Dose: 75MG PO DAILY, Disp: 90 tablet, Refills: 1 Cyanocobalamin Tab (Vitamin B-12 Tab) Dose: 500MCG PO DAILY, Disp: 90 tablet, Refills: 0 Docusate Sodium Cap (Colace Cap) Dose: 100 MG PO bid, Disp: 60 capsule, Refills: 0 Ferrous Sulfate Tab (Feosol Tab) Dose: 325MG PO DAILY, Disp: 90 tablet, Refills: 0 Furosemide Tab (Lasix Tab) Dose: 20MG PO QAM, Disp: 30 tablet, Refills: 0 Methocarbamol Tab (Robaxin Tab) Dose: 750MG PO Q8H PRN muscle spasms, Disp: 45 tablet, Refills: 0 Metoprolol Tartrate Tab (Lopressor Tab) Dose: 12.5MG PO Q12HR, Disp: 90 tablet, Refills: 0 Polyethylene Glycol Powder (Miralax Powder) Dose: 1PKT PO DAILY, Disp: 1 x 30 packet, Refills: 0 traMADol Tab (Ultram Tab) Dose: 50MG PO Q6H PRN pain scale 7-10, Disp: 28 tablet, Refills: 0 Hosp: Atorvastatin Tab (Lipitor Tab) Dose: 80 MG PO BEDTIME, Disp: 90 tablet, Refills: 0 Hosp: KLOR-CON Tab (Potassium Chloride ER Tab) Dose: 10 MEQ PO DAILY, Disp: 30 tablet, Refills: 0 STOPPED HOSPITAL MEDICATIONS Dc'd: Acetaminophen Supp (Tylenol Supp) 650MG Rectal Q4H PRN temp > 38.5c if npo/intubatedDc'd: Atorvastatin Tab (Lipitor Tab) 80MG PO BEDTIMEDc'd: Bisacodyl Supp (Dulcolax Supp) 10MG Rectal ASDIR X 1 doses PRN no bm pod3 2100Dc'd: Calcium gluconate 2 GM/NS 100 mL IVPB 2GM 600 MLS/HR IV ASDIR PRN ionized calcium less than 1.2Dc'd: Dextrose 50% 50 ml Syringe (D50W 50 ml Syringe) 25ML IV ASDIR PRN hypoglycemiaDc'd: Enoxaparin 40 mg/0.4 ml Inj (Lovenox 40 mg/0.4 ml Inj) 40MG SubQ DAILYDc'd: Glucagon Inj (Glucagon Inj) 1MG IM ASDIR PRN hypoglycemia if no iv/enteralDc'd: KCl 20mEq/100mL IVPB (Potassium Chloride 20mEq/100mL IVPB) 20MEQ IV ASDIR PRN see admin criteriaDc'd: Magnesium Sulfate 1GM IVPB (Magnesium Sulfate 1GM IVPB) 1GM 100 MLS/HR IV ASDIR PRN see admin criteriaDc'd: Mupirocin Ointment 2% (Bactroban Ointment 2%) 1APPLIC Nasal BIDDc'd: Ondansetron Inj (Zofran Inj) 4MG IV Q6H PRN nausea and vomitingDc'd: Potassium Chlor Tab.ER (K Dur Tab) 10MEQ PO DAILYDc'd: Potassium Chlor Tab.ER (K Dur Tab) 20MEQ PO ASDIR PRN electrolyte sliding scaleDc'd: Sod Biphos/Pot Phosphate Pkt (Neutra-Phos Packet) 2PKT PO ASDIR PRN serum phosphorus 2-2.7Dc'd: Sodium Bicarb 8.4% 50 mL Inj (Sodium Bicarb 8.4% 50 mL Inj) 50MEQ IV ASDIR PRN base deficit of -3Dc'd: Sodium Chloride 0.9% Inj (NS Flush Inj) 10ML IV ASDIRDc'd: Sodium Phosphate Inj (Sodium Phosphate Inj) 20MM IV ASDIR PRN phosphorus sliding scalein sodium chloride 0.9 % intravenous solution 250ML (Total 256.67 ML) Dc'd: Sodium Phosphate Inj (Sodium Phosphate Inj) 30MM IV ASDIR PRN phosphorus sliding scalein sodium chloride 0.9 % intravenous solution 250ML (Total 260 ML) at 0955 ATTENTION *EDITS and/or ADDENDA must be made in Patient Keeper for this note. * * Edits and ammendments created in [facility] are not visible * * in Patient Keeper or the legal medical record ([facility]). * RPT #: [id number] END OF REPORT [facility] 2024-06-09 09:55:00 [facility] ([facility]) Hospitalist D/C Summary REPORT #: [id number] REPORT STATUS: Signed DATE: 06/09/24 TIME: 954 PATIENT: KADIE ROCHA UNIT #: [id number] ROOM #: [id number] BED: A : 45 AGE: 78 SEX: M ATTEND: Coby Jain MD ADM AUTHOR: Abigail Ruiz MD ATTENTION *EDITS and/or ADDENDA must be made in Patient Keeper for this note. * * Edits and ammendments created in [facility] are not visible * * in Patient Keeper or the legal medical record ([facility]). * -- PROBLEMS/PROCEDURES -- ADMISSION DATE: 06/03/24 ADMITTING DIAGNOSES: - Acidosis, unspecified - Acute blood loss anemia - Acute lactic acidosis - Acute posthemorrhagic anemia - Acute postoperative pain of foot - Acute respiratory insufficiency - At risk for hemorrhage associated with surgery - Atherosclerotic heart disease of [place] coronary artery without angina pectoris - CAD (coronary artery disease) - Cardiogenic shock - Hyperglycemia, unspecified - Ischemic cardiomyopathy - Multiple vessel coronary artery disease - Non-ST elevation (NSTEMI) myocardial infarction - NSTEMI (non-ST elevated myocardial infarction) - S/P CABG x 3 - Thrombocytopenia, unspecified DISCHARGE DATE: 06/09/24 DISCHARGE DIAGNOSES: - Acidosis, unspecified - Acute blood loss anemia - Acute lactic acidosis - Acute posthemorrhagic anemia - Acute postoperative pain of foot - Acute respiratory insufficiency - At risk for hemorrhage associated with surgery - Atherosclerotic heart disease of [place] coronary artery without angina pectoris - CAD (coronary artery disease) - Cardiogenic shock - Hyperglycemia, unspecified - Ischemic cardiomyopathy - Multiple vessel coronary artery disease - Non-ST elevation (NSTEMI) myocardial infarction - NSTEMI (non-ST elevated myocardial infarction) - S/P CABG x 3 - Thrombocytopenia, unspecified -- HOSPITAL COURSE -- HOSPITAL COURSE: This 78-year-old gentleman without any significant past medical history, developed cough and congestion and was diagnosed with respiratory tract infection and treated appropriately. A few days later, he presented to an outside hospital in [place], [place] with complaints of recurrent chest pain and shortness of breath, not getting any better with antacids. He was diagnosed with non-ST segment elevation myocardial infarction and was transferred to LTAC[facility] within [facility] for further evaluation. Selective coronary angiogram over there showed significant multivessel coronary artery disease including proximal left main, prompting transfer to [facility] on 06/03/2024 for higher level of care. He was evaluated by Dr. Edmund Nash and underwent urgent coronary artery bypass graft x3, left internal mammary artery to left anterior descending, reverse saphenous vein graft to the first diagonal and reverse saphenous vein graft to the posterior descending coronary artery on 06/04/2024. He was extubated on postoperative day #0. Chest tubes have been removed. Weaned off of epinephrine. Currently on room air. The patient was transitioned out of the intensive care unit on 06/07/2024. 06/08/24: Says he feels much better today. Surgical area pain is under good control. On room air. Walked about 520 feet with physical therapy. Eating well. Moved his bowels. 06/09/2024: The patient is hemodynamically stable and cleared for discharge home on 06/09/2024. He will follow-up with Dr. Edmund Nash in 2 weeks time. He will follow-up with Dr. Freida Sutton in 2 weeks time. Adequate instructions and prescriptions have been provided. I have reviewed the [facility] and given him a prescription for tramadol 50 mg as needed #28. FINAL DIAGNOSIS: 1. Suj-RM-mcglskp elevation myocardial infarction around 06/01/2024. Selective coronary angiogram at an outside hospital showed left main 95%, chronic total occlusion of the left circumflex, mid left anterior descending 70 to 80%, right coronary artery 90% proximal, 80 to 90% mid and 90% distal stenosis. The patient is status post urgent coronary artery bypass graft x3, left internal mammary artery to left anterior descending, reverse saphenous vein graft to the first diagonal and reverse saphenous vein graft to the posterior descending coronary artery by Dr. Edmund Nash on 06/04/2024. Guideline directed medical therapy. 2. Acute systolic congestive cardiac failure, preoperative left ventricular ejection fraction 40%. Continue diuretics. 3. Anemia, likely chronic plus acute surgical blood loss anemia. Stable. 4. Leukocytosis, reactive. 5. Thrombocytopenia, noncritical. 6. Chronic kidney disease stage II. 7. Euglycemia. Hemoglobin A1c is 5.1. Discontinue Accu-Cheks and sliding scale. 8. Acute debility. Continue physical therapy. 9. Cardiogenic shock, related to omu-HL-gtcblaz elevation myocardial infarction, resolved. 10. Lactic acidemia related to surgery, resolved. -- DISCHARGE MEDICATIONS -- ALLERGIES: No Known Allergies (UNKNOWN - Allergy) DISCHARGE MEDICATIONS: Please refer to Discharge Medication list for a complete list of discharge medications Acetaminophen Tab (Tylenol Tab) 650MG PO Q4H PRN temp > 38.5 c, Disp: 60 tablet, Refills: 0 Aspirin EC Tab (Ecotrin Tab) 81MG PO DAILY, Disp: 90 tablet, Refills: 1 Atorvastatin Tab (Lipitor Tab) 80 MG PO BEDTIME, Disp: 90 tablet, Refills: 0 Clopidogrel Tab (Plavix Tab) 75MG PO DAILY, Disp: 90 tablet, Refills: 1 Cyanocobalamin Tab (Vitamin B-12 Tab) 500MCG PO DAILY, Disp: 90 tablet, Refills: 0 Docusate Sodium Cap (Colace Cap) 100 MG PO bid, Disp: 60 capsule, Refills: 0 Ferrous Sulfate Tab (Feosol Tab) 325MG PO DAILY, Disp: 90 tablet, Refills: 0 Furosemide Tab (Lasix Tab) 20MG PO QAM, Disp: 30 tablet, Refills: 0 KLOR-CON Tab (Potassium Chloride ER Tab) 10 MEQ PO DAILY, Disp: 30 tablet, Refills: 0 Methocarbamol Tab (Robaxin Tab) 750MG PO Q8H PRN muscle spasms, Disp: 45 tablet, Refills: 0 Metoprolol Tartrate Tab (Lopressor Tab) 12.5MG PO Q12HR, Disp: 90 tablet, Refills: 0 Polyethylene Glycol Powder (Miralax Powder) 1PKT PO DAILY, Disp: 1 x 30 packet, Refills: 0 traMADol Tab (Ultram Tab) 50MG PO Q6H PRN pain scale 7-10, Disp: 28 tablet, Refills: 0 -- DISCHARGE INSTRUCTIONS -- PK DISCHARGE ORDERS: DC - ALL eCQMS Details: Order number: [id number] Category: PKDC - PK DISCHARGE ORDERS Order status: Transmitted Details: Does patient have any of the following conditions at discharge? CABG Statin at Discharge: Yes EJ Fraction: gt;40% Aspirin at Discharge: Yes Beta-Chon at Discharge: Yes Antiplatelet/P2Y12 at Discharge: Yes Aldosterone Antagonist at Discharge: No - Not Applicable Cardiac rehab phase II referral: Yes Ordered by: Abigail Ruiz MD Jun 09, 2024 9:55am Entered by: Abigail Ruiz MD Service date: Jun 09, 2024 9:55am Details: Order number: [id number] Category: PKDC - PK DISCHARGE ORDERS Order status: Transmitted Details: Discharge Parameters: Procedures Meds given Procedure: Transportation arranged Meds to be Given:(Enter specifics) scheduled meds Discharge order with parameter: Yes Notify attending when discharge parameter met: Yes Discharge to: Home/Self Care Diet: Cardiac Activity: As Tolerated No Lifting gt;10lbs No Sports/Activities No Strenuous Activity Sternal Precautions PCP: EMYYPR:Freida Sutton MD PCP follow up timeframe: In 1-2 weeks Notify PCP of Signs/Symptoms: Chest Pain Moderate/large bleeding Shortness of breath Temp. 101 or greater Wound/dressing care: Clean wound daily OK to shower tomorrow Weight Monitoring: Daily Additional instructions: Discharge home. Medications as per reconciliation. E Rx sent. Attending Physician: MADDIE:Edmund Nash MD Attending physician follow up timeframe: 2 weeks Attending physician special instructions: post CABG f/u Additional Discharge Routines: PCP Follow-Up Attending Follow-Up Ordered by: Abigail Ruiz MD Jun 09, 2024 9:55am Entered by: Abigail Ruiz MD Service date: Jun 09, 2024 9:55am Discharge Matt w/instruction ADDTIONAL DISCHARGE INSTRUCTIONS: Emergency Instructions: The patient was instructed to present to the nearest Emergency Department or call 911 should their symptoms return or worsen.; -- OBJECTIVE -- VITALS (06/08 09:55 - 06/09 09:55): Temperature F: 97.7 Temperature C: 37.0 (37.0 - 37.1) Temperature source: Oral Pulse Rate 70 (68 - 90) Respiratory rate: 23 (16 - 45) Blood pressure: 136/60 (100/58 - 136/66) Blood pressure source: Monitor I/Os (06/08 07:00 - 06/09 07:00): Net 820 Intake 820 -EXAM- GENERAL: GENERAL: Elderly male, not in any distress. VITAL SIGNS: oxygen saturation is 98% on room air. Weight is 78.7 kilograms. Body mass index 24.3. HEENT: Head is atraumatic. Pupils are equal and round. NECK: Supple. No thyromegaly. No JVD. HEART: Regular rate and rhythm. CHEST: Sternotomy site is clean. LUNGS: Clear to auscultation. ABDOMEN: Soft, nontender. EXTREMITIES: No edema, cyanosis or clubbing. Pedal pulses palpable. NEUROLOGICAL: No focal deficit. -- DATA -- LABS BASIC METABOLIC PANEL (06/09/24 04:41) SODIUM 139 POTASSIUM 4.0 CHLORIDE 104 CARBON DIOXIDE 29 GLUCOSE 110H H BLOOD UREA NITROGEN 22 GLOMERULAR FILTRATION RATE >=60 max estimate CREATININE 1.00 CALCIUM 7.9 L CBC W/AUTO DIFF (06/09/24 04:41) WHITE BLOOD CELL 6.4 RED BLOOD CELL 2.88 L HEMOGLOBIN 9.3D L D L HEMATOCRIT 26.0L L MEAN CELL VOLUME 90.3 MEAN CELL HGB 32.3 H MEAN CELL HGB CONCENTRATION 35.8 RED CELL DISTRIBUTION WIDTH 13.8 PLATELET COUNT 155 MEAN PLATELET VOLUME 9.8 NEUTROPHIL % 66.2 LYMPHOCYTE % 20.1 L MONOCYTE % 10.2 H EOSINOPHIL % 2.4 BASOPHIL % 0.3 NEUTROPHIL # 4.21 LYMPHOCYTE # 1.28 MONOCYTE # 0.65 EOSINOPHIL # 0.15 BASOPHIL # 0.02 GLU BED (06/08/24 16:50) GLUBED 88 PHOS (06/08/24 11:11) PHOSPHOROUS 1.8 L CBC W/AUTO DIFF (06/08/24 11:11) WHITE BLOOD CELL 7.8 RED BLOOD CELL 3.35 L HEMOGLOBIN 10.9L L HEMATOCRIT 30.5L L MEAN CELL VOLUME 91.0 MEAN CELL HGB 32.5 H MEAN CELL HGB CONCENTRATION 35.7 RED CELL DISTRIBUTION WIDTH 14.4 PLATELET COUNT 164 MEAN PLATELET VOLUME 9.9 NEUTROPHIL % 79.0 H LYMPHOCYTE % 11.7 L MONOCYTE % 7.3 EOSINOPHIL % 0.9 BASOPHIL % 0.5 NEUTROPHIL # 6.12 LYMPHOCYTE # 0.91 L MONOCYTE # 0.57 EOSINOPHIL # 0.07 BASOPHIL # 0.04 MAG (06/08/24 11:11) MAGNESIUM 2.2 BASIC METABOLIC PANEL (06/08/24 11:11) SODIUM 138 POTASSIUM 3.7D D CHLORIDE 103 CARBON DIOXIDE 29 GLUCOSE 104 BLOOD UREA NITROGEN 18 GLOMERULAR FILTRATION RATE >=60 max estimate CREATININE 1.00 CALCIUM 8.3 L PTT (06/08/24 11:11) THROMBOPLASTIN TIME PARTIAL 34.4 -- QUALITY -- -MEDICATIONS- - I attest that the foregoing medication list in the medical record is true, accurate, and complete to the best of my knowledge. -- ATTESTATION -- TIME SPENT ON PATIENT CARE: - Direct 35 minutes - > 50% of time spent on Counseling/Care Coordination CARE ACTIVITIES / CARE COORDINATION: - I have reviewed the history and repeated the glass elements - I have seen and examined this patient - I have reviewed the progress in the clinical course since the last examination - I have discussed the patient's condition with other members of the care team Signed in PatientKeeper by Abigail Ruiz MD on 06/11/24 at 16:07 at 1607 ATTENTION *EDITS and/or ADDENDA must be made in Patient Keeper for this note. * * Edits and ammendments created in [employer] are not visible * * in Patient Keeper or the legal medical record ([facility]). * [facility] #: [id number] END OF REPORT [facility] 2024-06-09 08:24:00 [facility] ([facility]) Cardiology Progress Notes REPORT #: [id number] REPORT STATUS: Signed DATE: 06/09/24 TIME: 823 PATIENT: KADIE ROCHA UNIT #: [id number] ROOM #: P.0418 BED: A : 45 AGE: 78 SEX: M ATTEND: Coby Jain MD [facility] AUTHOR: Vikas Rico ATTENTION *EDITS and/or ADDENDA must be made in Patient Keeper for this note. * * Edits and ammendments created in [employer] are not visible * * in Patient Keeper or the legal medical record ([facility]). * -- CO-SIGNATURE -- COMMENTS: The patient was seen on rounds with AMBROCIO [place]. The patient has no complaints Examination demonstrates normal heart sounds and clear lung cardozo. Impression and plan The patient is a 78-year-old gentleman who underwent three-vessel bypass surgery who is doing well postoperatively. -Continues to ambulate with occupational and physical therapy -Continue statin, beta-chon and dual antiplatelet therapy. Signed in PatientKeeper by FREIDA SUTTON MD on 06/09/24 at 23:59 -- ASSESSMENT AND PLAN -- PROBLEMS: 1: Non-ST elevation (NSTEMI) myocardial infarction A/P: The patient is a 78-year-old gentleman has no significant past medical history. He presented at [facility] with complaint of substernal chest pain and shortness of breath that started a few days prior to arrival. He was found to have elevated troponin, was diagnosed with NSTEMI. He was transferred to LTAC[facility] located within [facility] for further evaluation and management. He was evaluated by cardiology services, Dr. Brownlee, and was taken to [facility] Of District [facility], underwent selective coronary angiogram which showed multivessel coronary artery disease, left main 95% lesion proximal to a PROFESSIONAL NURSING ASSISTANT of the Left circumflex, mid LAD has a 70-80% lesion, RCA has a 90% proximal, 80-90% mid, and 90% distal stenosis. He was transferred here to [facility] ICU for higher level of care and CABG evaluation. He underwent CABG x 3V (VALDEZ-LAD, rSVG-D1, rSVG-PDA) on 06/04/24. He was transferred back to CVICU for post-op management and extubated POD0. He is in CVIMU now. - S/p CABG x 3V on 06/04/24. - On DAPT with aspirin and clopidogrel - On atorvastatin 80mg daily, metoprolol tartrate 12.5mg BID - On PO furosemide 20mg daily - On PT/OT/IS - Cleared by CV surgery to be discharged today - He will follow-up with Dr. Nash and his primary broadcast operations director -- SUBJECTIVE -- CHIEF COMPLAINT: NSTEMI PATIENT NARRATIVE: Sitting in the chair. He denies complaints. Seen by CV surgery (Dr. Nash) today. No acute events overnight. -REVIEW OF SYSTEMS- GENERAL: Negative for fever, malaise, fatigue. EYES: Negative for blurry vision. No diplopia. EARS/NOSE/THROAT: Negative for sore throat. No otalgia. No rhinorrhea. RESPIRATORY: Negative for dyspnea or wheeze. No cough. CARDIOVASCULAR: Negative for chest pain or palpitations. No extremity swelling. GASTROINTESTINAL: Negative for abdominal pain or nausea. No emesis. No diarrhea. GENITOURINARY: Negative for dysuria, frequency, or urgency. No gross hematuria. MUSCULOSKELETAL: Negative for joint stiffness, pain, or arthralgias. SKIN: Negative for rashes. No pruritus. NEUROLOGICAL: Negative for headache. No vertigo. Denies paresthesias. PSYCHIATRIC: Negative for specific complaints. -- OBJECTIVE -- VITALS (06/08 07:37 - 06/09 07:37): Temperature F: 97.7 (97.7 - 97.8) Temperature C: 37.1 Temperature source: Oral Pulse Rate 70 (68 - 107) Respiratory rate: 23 (16 - 45) Blood pressure: 136/60 (100/58 - 136/96) Blood pressure source: Monitor I/Os (06/08 07:00 - 06/09 07:00): Net 820 Intake 820 -EXAM- OTHER: Constitutional: Well developed, well nourished patient, in no acute distress. Derm/Integumentary: Warm and dry with no rashes, sores, or lesions. HEENT: Eyes-sclera clear and white, symmetrical w/ no lag. ENT - Palate and gums pink, mucosa moist, no pallor/cyanosis. Neck: supple with no masses, no thyromegaly, No JVD. Respiratory: Clear to auscultation. Chest: Median sternotomy intact, no drainage Heart: S1S2+, Regular Rate and Rhythm, No murmurs, rubs, or gallops. Gastrointestinal: + Bowel Sounds all quadrants. Soft, nontender with no masses or organomegaly; No HJR. Musculoskeletal: Equal strength in all extremities. No weakness. Neurology: Alert and oriented X 3. Calm, cooperative affect. No focal deficits. Extremities: + peripheral pulses. No clubbing, cyanosis. No lower extremity edema. -- DATA -- MEDICATIONS polyethylene glycoL 3350 1 PKT PO DAILY SODIUM PHOSPHATE with/in SODIUM CHLORIDE 0.9% 30 MM IV ASDIR (PRN) ACETAMINOPHEN 650 MG RECTAL Q4H PRN SODIUM BICARBONATE 8.4% 50 MEQ IV ASDIR PRN SOD BIPHOS/POT PHOSPHATE 2 PKT PO ASDIR (PRN) DOCUSATE SODIUM 200 MG PO DAILY SODIUM CHLORIDE 10 mL 10 ML IV ASDIR CYANOCOBALAMIN 500 MCG PO DAILY ONDANSETRON HCL/PF 4 MG IV Q6H PRN POTASSIUM CHLORIDE 20 MEQ IV ASDIR (PRN) METOPROLOL TARTRATE 12.5 MG PO Q12HR ASPIRIN 81 MG PO DAILY BUMETANIDE 1 MG IV Q12HR GLUCAGON 1 MG IM ASDIR PRN ENOXAPARIN SODIUM 40 MG SUBQ DAILY bisacodyL 10 MG RECTAL ASDIR PRN methocarbamoL 750 MG PO Q8H PRN POTASSIUM CHLORIDE 20 MEQ PO ASDIR (PRN) ACETAMINOPHEN 650 MG PO Q4H PRN DEXTROSE 50%-WATER 25 ML IV ASDIR PRN MAGNESIUM 1 GM IV ASDIR PRN CALCIUM GLUC IN NACL, ISO-OSM 2 GM IV ASDIR PRN traMADol HCL 50 MG PO Q6H PRN SODIUM PHOSPHATE with/in SODIUM CHLORIDE 0.9% 20 MM IV ASDIR (PRN) clopidogreL 75 MG PO DAILY FERROUS SULFATE 325 MG PO DAILY MUPIROCIN 1 APPLIC NASAL BID ATORVASTATIN CALCIUM 80 MG PO BEDTIME LABS BASIC METABOLIC PANEL (06/09/24 04:41) SODIUM 139 POTASSIUM 4.0 CHLORIDE 104 CARBON DIOXIDE 29 GLUCOSE 110H H BLOOD UREA NITROGEN 22 GLOMERULAR FILTRATION RATE >=60 max estimate CREATININE 1.00 CALCIUM 7.9 L CBC W/AUTO DIFF (06/09/24 04:41) WHITE BLOOD CELL 6.4 RED BLOOD CELL 2.88 L HEMOGLOBIN 9.3D L D L HEMATOCRIT 26.0L L MEAN CELL VOLUME 90.3 MEAN CELL HGB 32.3 H MEAN CELL HGB CONCENTRATION 35.8 RED CELL DISTRIBUTION WIDTH 13.8 PLATELET COUNT 155 MEAN PLATELET VOLUME 9.8 NEUTROPHIL % 66.2 LYMPHOCYTE % 20.1 L MONOCYTE % 10.2 H EOSINOPHIL % 2.4 BASOPHIL % 0.3 NEUTROPHIL # 4.21 LYMPHOCYTE # 1.28 MONOCYTE # 0.65 EOSINOPHIL # 0.15 BASOPHIL # 0.02 GLU BED (06/08/24 16:50) GLUBED 88 PHOS (06/08/24 11:11) PHOSPHOROUS 1.8 L CBC W/AUTO DIFF (06/08/24 11:11) WHITE BLOOD CELL 7.8 RED BLOOD CELL 3.35 L HEMOGLOBIN 10.9L L HEMATOCRIT 30.5L L MEAN CELL VOLUME 91.0 MEAN CELL HGB 32.5 H MEAN CELL HGB CONCENTRATION 35.7 RED CELL DISTRIBUTION WIDTH 14.4 PLATELET COUNT 164 MEAN PLATELET VOLUME 9.9 NEUTROPHIL % 79.0 H LYMPHOCYTE % 11.7 L MONOCYTE % 7.3 EOSINOPHIL % 0.9 BASOPHIL % 0.5 NEUTROPHIL # 6.12 LYMPHOCYTE # 0.91 L MONOCYTE # 0.57 EOSINOPHIL # 0.07 BASOPHIL # 0.04 MAG (06/08/24 11:11) MAGNESIUM 2.2 BASIC METABOLIC PANEL (06/08/24 11:11) SODIUM 138 POTASSIUM 3.7D D CHLORIDE 103 CARBON DIOXIDE 29 GLUCOSE 104 BLOOD UREA NITROGEN 18 GLOMERULAR FILTRATION RATE >=60 max estimate CREATININE 1.00 CALCIUM 8.3 L PTT (06/08/24 11:11) THROMBOPLASTIN TIME PARTIAL 34.4 -- ATTESTATION -- CARE ACTIVITIES / CARE COORDINATION: - I have reviewed the history and repeated the glass elements - I have seen and examined this patient - I have reviewed the progress in the clinical course since the last examination - I have discussed the patient's condition with other members of the care team ADDITIONAL DETAIL: Plan of care discussed with Dr. Freida Sutton Signed in PatientKeeper by Vikas Rico on 06/09/24 at 15:19 Cosigned by FREIDA SUTTON MD on 06/09/24 at 23:59 at 4032 at 2359 ATTENTION *EDITS and/or ADDENDA must be made in Patient Keeper for this note. * * Edits and ammendments created in [facility] are not visible * * in Patient Keeper or the legal medical record ([facility]). * [facility] #: [id number] END OF REPORT [facility] 2024-06-08 17:46:00 [facility] ([facility]) Hospitalist Progress Note REPORT #: [id number] REPORT STATUS: Signed DATE: 06/08/24 TIME: 1745 PATIENT: KADIE ROCHA UNIT #: [id number] ROOM #: P.0418 BED: A : 45 AGE: 78 SEX: M ATTEND: Coby Jain MD ADM AUTHOR: Abigail Ruiz MD ATTENTION *EDITS and/or ADDENDA must be made in Patient Keeper for this note. * * Edits and ammendments created in [employer] are not visible * * in Patient Keeper or the legal medical record ([facility]). * -- ASSESSMENT AND PLAN -- HOSPITAL COURSE TO DATE: GENERAL ASSESSMENT: ASSESSMENT AND PLAN: 1. Nro-SQ-zcnablu elevation myocardial infarction around 06/01/2024. Selective coronary angiogram at an outside hospital showed left main 95%, chronic total occlusion of the left circumflex, mid left anterior descending 70 to 80%, right coronary artery 90% proximal, 80 to 90% mid and 90% distal stenosis. The patient is status post urgent coronary artery bypass graft x3, left internal mammary artery to left anterior descending, reverse saphenous vein graft to the first diagonal and reverse saphenous vein graft to the posterior descending coronary artery by Dr. Edmund Nash on 06/04/2024. Guideline directed medical therapy. 2. Acute systolic congestive cardiac failure, preoperative left ventricular ejection fraction 40%. Continue diuretics. 3. Anemia, likely chronic plus acute surgical blood loss anemia. Stable. 4. Leukocytosis, reactive. 5. Thrombocytopenia, noncritical. 6. Chronic kidney disease stage II. 7. Euglycemia. Hemoglobin A1c is 5.1. Discontinue Accu-Cheks and sliding scale. 8. Acute debility. Continue physical therapy. 9. Cardiogenic shock, related to xhq-[id number]-[id number] elevation myocardial infarction, resolved. 10. Lactic acidemia related to surgery, resolved. ADDITIONAL COMMENTS: Improving. Discharge planning in the next 2 to 3 days -- SUBJECTIVE -- HPI: This 78-year-old gentleman without any significant past medical history, developed cough and congestion and was diagnosed with respiratory tract infection and treated appropriately. A few days later, he presented to an outside hospital in [place], [place] with complaints of recurrent chest pain and shortness of breath, not getting any better with antacids. He was diagnosed with non-ST segment elevation myocardial infarction and was transferred to LTAC[facility] located [facility] for further evaluation. Selective coronary angiogram over there showed significant multivessel coronary artery disease including proximal left main, prompting transfer to [facility] on 06/03/2024 for higher level of care. He was evaluated by Dr. Edmund Nash and underwent urgent coronary artery bypass graft x3, left internal mammary artery to left anterior descending, reverse saphenous vein graft to the first diagonal and reverse saphenous vein graft to the posterior descending coronary artery on 06/04/2024. He was extubated on postoperative day #0. Chest tubes have been removed. Weaned off of epinephrine. Currently on room air. The patient is being transitioned out of the intensive care unit on 06/07/2024. I have been asked to see him for medical management. PATIENT NARRATIVE: 06/08/24: Says he feels much better today. Surgical area pain is under good control. On room air. Walked about 520 feet with physical therapy. Eating well. Moved his bowels. -REVIEW OF SYSTEMS- GENERAL: as above -- OBJECTIVE -- VITALS (06/07 17:46 - 06/08 17:46): Temperature F: 97.7 (97.7 - 98.5) Temperature source: Oral Pulse Rate 73 (70 - 107) Respiratory rate: 27 (16 - 45) Blood pressure: 133/96 (109/58 - 142/96) Blood pressure source: Monitor I/Os (06/07 07:00 - 06/08 07:00): Net -1,706.30 Intake 253.70 Output 1,960 -EXAM- GENERAL: GENERAL: Elderly male, not in any distress. VITAL SIGNS: oxygen saturation is 98% on room air. Weight is 78.7 kilograms. Body mass index 24.3. HEENT: Head is atraumatic. Pupils are equal and round. NECK: Supple. No thyromegaly. No JVD. HEART: Regular rate and rhythm. CHEST: Sternotomy site is clean. LUNGS: Clear to auscultation. ABDOMEN: Soft, nontender. EXTREMITIES: No edema, cyanosis or clubbing. Pedal pulses palpable. NEUROLOGICAL: No focal deficit. -- DATA -- MEDICATIONS polyethylene glycoL 3350 1 PKT PO DAILY SODIUM PHOSPHATE with/in SODIUM CHLORIDE 0.9% 30 MM IV ASDIR (PRN) ACETAMINOPHEN 650 MG RECTAL Q4H PRN SODIUM BICARBONATE 8.4% 50 MEQ IV ASDIR PRN SOD BIPHOS/POT PHOSPHATE 2 PKT PO ASDIR (PRN) DOCUSATE SODIUM 200 MG PO DAILY SODIUM CHLORIDE 10 mL 10 ML IV ASDIR CYANOCOBALAMIN 500 MCG PO DAILY ONDANSETRON HCL/PF 4 MG IV Q6H PRN POTASSIUM CHLORIDE 20 MEQ IV ASDIR (PRN) METOPROLOL TARTRATE 12.5 MG PO Q12HR ASPIRIN 81 MG PO DAILY BUMETANIDE 1 MG IV Q12HR GLUCAGON 1 MG IM ASDIR PRN ENOXAPARIN SODIUM 40 MG SUBQ DAILY bisacodyL 10 MG RECTAL ASDIR PRN methocarbamoL 750 MG PO Q8H PRN POTASSIUM CHLORIDE 20 MEQ PO ASDIR (PRN) LACTULOSE 30 ML PO ASDIR PRN ACETAMINOPHEN 650 MG PO Q4H PRN DEXTROSE 50%-WATER 25 ML IV ASDIR PRN MAGNESIUM 1 GM IV ASDIR PRN CALCIUM GLUC IN NACL, ISO-OSM 2 GM IV ASDIR PRN traMADol HCL 50 MG PO Q6H PRN SODIUM PHOSPHATE with/in SODIUM CHLORIDE 0.9% 20 MM IV ASDIR (PRN) clopidogreL 75 MG PO DAILY FERROUS SULFATE 325 MG PO DAILY MUPIROCIN 1 APPLIC NASAL BID ATORVASTATIN CALCIUM 80 MG PO BEDTIME LABS GLU BED (06/08/24 16:50) GLUBED 88 CBC W/AUTO DIFF (06/08/24 11:11) WHITE BLOOD CELL 7.8 RED BLOOD CELL 3.35 L HEMOGLOBIN 10.9L L HEMATOCRIT 30.5L L MEAN CELL VOLUME 91.0 MEAN CELL HGB 32.5 H MEAN CELL HGB CONCENTRATION 35.7 RED CELL DISTRIBUTION WIDTH 14.4 PLATELET COUNT 164 MEAN PLATELET VOLUME 9.9 NEUTROPHIL % 79.0 H LYMPHOCYTE % 11.7 L MONOCYTE % 7.3 EOSINOPHIL % 0.9 BASOPHIL % 0.5 NEUTROPHIL # 6.12 LYMPHOCYTE # 0.91 L MONOCYTE # 0.57 EOSINOPHIL # 0.07 BASOPHIL # 0.04 PHOS (06/08/24 11:11) PHOSPHOROUS 1.8 L MAG (06/08/24 11:11) MAGNESIUM 2.2 BASIC METABOLIC PANEL (06/08/24 11:11) SODIUM 138 POTASSIUM 3.7D D CHLORIDE 103 CARBON DIOXIDE 29 GLUCOSE 104 BLOOD UREA NITROGEN 18 GLOMERULAR FILTRATION RATE >=60 max estimate CREATININE 1.00 CALCIUM 8.3 L PTT (06/08/24 11:11) THROMBOPLASTIN TIME PARTIAL 34.4 GLU BED (06/07/24 20:30) GLUBED 126 H PHOS (06/07/24 18:24) PHOSPHOROUS 2.6 MAG (06/07/24 18:24) MAGNESIUM 1.7 BASIC METABOLIC PANEL (06/07/24 18:24) SODIUM 134L L POTASSIUM 4.7 CHLORIDE 104 CARBON DIOXIDE 23 GLUCOSE 93 BLOOD UREA NITROGEN 11 GLOMERULAR FILTRATION RATE >=60 max estimate CREATININE 0.90 CALCIUM 8.1 L GLU BED (06/07/24 18:21) GLUBED 94 -- QUALITY -- -MEDICATIONS- - I attest that the foregoing medication list in the medical record is true, accurate, and complete to the best of my knowledge. -- ATTESTATION -- CARE ACTIVITIES / CARE COORDINATION: - I have reviewed the history and repeated the glass elements - I have seen and examined this patient - I have reviewed the progress in the clinical course since the last examination - I have discussed the patient's condition with other members of the care team Signed in PatientKeeper by Abigail Ruiz MD on 06/08/24 at 17:50 at 1750 ATTENTION *EDITS and/or ADDENDA must be made in Patient Keeper for this note. * * Edits and ammendments created in [employer] are not visible * * in Patient Keeper or the legal medical record ([facility]). * RPT #: [id number] END OF REPORT [facility] 2024-06-08 14:32:00 [facility] ([facility]) Cardiology Progress Notes REPORT #: [id number] REPORT STATUS: Signed DATE: 06/08/24 TIME: 1432 PATIENT: KADIE ROCHA UNIT #: [id number] ROOM #: P.0418 BED: : 45 AGE: 78 SEX: M ATTEND: Coby Jain MD ADM AUTHOR: Estiven Price DO CF1 ATTENTION *EDITS and/or ADDENDA must be made in Patient Keeper for this note. * * Edits and ammendments created in [employer] are not visible * * in Patient Keeper or the legal medical record ([facility]). * -- CO-SIGNATURE -- COMMENTS: I have seen and examined the patient with the tool sharpener, Estiven Price DO on June 08, 2024. I have reviewed all the clinical information, lab investigations, and imaging data. I agree with the following examination, findings, assessment and plan. I was present and supervised. Signed in PatientKeeper by FREIDA SUTTON MD on 06/09/24 at 07:15 -- ASSESSMENT AND PLAN -- GENERAL ASSESSMENT: Mr. Rocha is a 78 year old male with no significant PMH who was transferred from LT[facility] after presenting initially to [facility] for evaluation of substernal chest pain that started a few days prior. Pt was found to have elevated troponins with nonspecific EKG changes and then was transferred to [place] and found to have MV CAD. Patient was taken to the Director Of District Office and found to have a left main 95% lesion proximal to a PROFESSIONAL NURSING ASSISTANT of the Left circumflex, mid LAD has a 70-80% lesion, RCA has a 90% proximal, 80-90% mid, and 90% distal stenosis. Pt transferred to [facility] for CABG evaluation. On arrival, asymptomatic. VS stable. Labs notable for BNP 314, Hgb 12.8, otherwise grossly unremarkable. Pt being taken for CABG by Dr. Nash. PROBLEMS: 1: Multiple vessel coronary artery disease A/P: - Pt presenting with chest pain, found to have elevated troponin; nonspecific EKG changes - LHC at [facility] showed left main 95% lesion proximal to a PROFESSIONAL NURSING ASSISTANT of the LCx, mid LAD has a 70-80% lesion, RCA has a 90% proximal, 80-90% mid, and 90% distal stenosis. - s/p 3V CABG w/ Dr. Nash on 06/04 (VALDEZ - LAD, SVG - 1st diag, SVG - PDA) - preop LVEF 40 - Continue asa, statin, hold off beta blockers due to bradycardia - Increased diuretics today; monitor I/Os - Off vasopressors - Removed all chest tubes, CVP, Arterial line and segura - Stable from cardiology standpoint for downgrade. Discussed with Dr. Sutton. -- SUBJECTIVE -- HPI: No acute events overnight. Pt with no new complaints. Downgraded. -REVIEW OF SYSTEMS- COMMENT: Negative except as per in HPI. -- OBJECTIVE -- VITALS (06/07 14:32 - 06/08 14:32): Temperature F: 97.8 (97.8 - 98.5) Temperature source: Oral Pulse Rate 73 (63 - 87) Respiratory rate: 27 (15 - 45) Blood pressure: 125/61 (100/55 - 142/70) Blood pressure source: Monitor I/Os (06/07 07:00 - 06/08 07:00): Net -1,706.30 Intake 253.70 Output 1,960 -EXAM- GENERAL: Well developed, well nourished, in no apparent distress. HEAD: Normocephalic, atraumatic. MOUTH: Oropharynx without deformities or lesions, normal mucosa.. NECK: No masses, no thyromegaly, no abnormal cervical nodes, trachea midline. CHEST: Grossly normal appearance. LUNGS: Clear bilaterally with normal respiratory effort. HEART: Regular rate and rhythm, normal S1, S2, no murmurs, no rubs, no gallops, no clicks. ABDOMEN: Soft, non-tender, no organomegaly, no masses noted. EXTREMITIES: bilateral LE edema NEUROLOGICAL: Alert and oriented. No focal deficits. PULSES: Pulses normal in all extremities. SKIN: Intact without significant lesions, or rashes. PSYCHIATRIC: Normal mood and affect, intact judgment and insight. -- DATA -- MEDICATIONS polyethylene glycoL 3350 1 PKT PO DAILY SODIUM PHOSPHATE with/in SODIUM CHLORIDE 0.9% 30 MM IV ASDIR (PRN) ACETAMINOPHEN 650 MG RECTAL Q4H PRN SODIUM BICARBONATE 8.4% 50 MEQ IV ASDIR PRN SOD BIPHOS/POT PHOSPHATE 2 PKT PO ASDIR (PRN) DOCUSATE SODIUM 200 MG PO DAILY SODIUM CHLORIDE 10 mL 10 ML IV ASDIR CYANOCOBALAMIN 500 MCG PO DAILY ONDANSETRON HCL/PF 4 MG IV Q6H PRN POTASSIUM CHLORIDE 20 MEQ IV ASDIR (PRN) METOPROLOL TARTRATE 12.5 MG PO Q12HR ASPIRIN 81 MG PO DAILY BUMETANIDE 1 MG IV Q12HR GLUCAGON 1 MG IM ASDIR PRN ENOXAPARIN SODIUM 40 MG SUBQ DAILY bisacodyL 10 MG RECTAL ASDIR PRN methocarbamoL 750 MG PO Q8H PRN POTASSIUM CHLORIDE 20 MEQ PO ASDIR (PRN) LACTULOSE 30 ML PO ASDIR PRN ACETAMINOPHEN 650 MG PO Q4H PRN DEXTROSE 50%-WATER 25 ML IV ASDIR PRN MAGNESIUM 1 GM IV ASDIR PRN CALCIUM GLUC IN NACL, ISO-OSM 2 GM IV ASDIR PRN traMADol HCL 50 MG PO Q6H PRN SODIUM PHOSPHATE with/in SODIUM CHLORIDE 0.9% 20 MM IV ASDIR (PRN) clopidogreL 75 MG PO DAILY FERROUS SULFATE 325 MG PO DAILY MUPIROCIN 1 APPLIC NASAL BID ATORVASTATIN CALCIUM 80 MG PO BEDTIME LABS CBC W/AUTO DIFF (06/08/24 11:11) WHITE BLOOD CELL 7.8 RED BLOOD CELL 3.35 L HEMOGLOBIN 10.9L L HEMATOCRIT 30.5L L MEAN CELL VOLUME 91.0 MEAN CELL HGB 32.5 H MEAN CELL HGB CONCENTRATION 35.7 RED CELL DISTRIBUTION WIDTH 14.4 PLATELET COUNT 164 MEAN PLATELET VOLUME 9.9 NEUTROPHIL % 79.0 H LYMPHOCYTE % 11.7 L MONOCYTE % 7.3 EOSINOPHIL % 0.9 BASOPHIL % 0.5 NEUTROPHIL # 6.12 LYMPHOCYTE # 0.91 L MONOCYTE # 0.57 EOSINOPHIL # 0.07 BASOPHIL # 0.04 PHOS (06/08/24 11:11) PHOSPHOROUS 1.8 L MAG (06/08/24 11:11) MAGNESIUM 2.2 BASIC METABOLIC PANEL (06/08/24 11:11) SODIUM 138 POTASSIUM 3.7D D CHLORIDE 103 CARBON DIOXIDE 29 GLUCOSE 104 BLOOD UREA NITROGEN 18 GLOMERULAR FILTRATION RATE >=60 max estimate CREATININE 1.00 CALCIUM 8.3 L PTT (06/08/24 11:11) THROMBOPLASTIN TIME PARTIAL 34.4 GLU BED (06/07/24 20:30) GLUBED 126 H PHOS (06/07/24 18:24) PHOSPHOROUS 2.6 MAG (06/07/24 18:24) MAGNESIUM 1.7 BASIC METABOLIC PANEL (06/07/24 18:24) SODIUM 134L L POTASSIUM 4.7 CHLORIDE 104 CARBON DIOXIDE 23 GLUCOSE 93 BLOOD UREA NITROGEN 11 GLOMERULAR FILTRATION RATE >=60 max estimate CREATININE 0.90 CALCIUM 8.1 L GLU BED (06/07/24 18:21) GLUBED 94 Signed in PatientKeeper by Estiven Price on 06/08/24 at 14:50 Cosigned by FREIDA SUTTON MD on 06/09/24 at 07:15 at 0715 at 0715 ATTENTION *EDITS and/or ADDENDA must be made in Patient Keeper for this note. * * Edits and ammendments created in [employer] are not visible * * in Patient Keeper or the legal medical record ([facility]). * [facility] #: [id number] END OF REPORT [facility] 2024-06-07 22:35:00 [id number] [address] PATIENT NAME: KADIE ROCHA ADMIT DATE: 06/03/24 ACCOUNT NO: [id number] ROOM NO: [id number] AGE: 78 REPORT TYPE: CONSULTATION SEX: M ADMITTING PHYSICIAN:Coby Jain MD ATTENDING PHYSICIAN:Coby Jain MD CONSULTATION DATE: REASON FOR ADMISSION: Kkp-DC-vwvivqb elevation myocardial infarction. REASON FOR CONSULTATION: Medical management. HISTORY OF PRESENT ILLNESS: This 78-year-old gentleman without any significant past medical history, developed cough and congestion and was diagnosed with respiratory tract infection and treated appropriately. A few days later, he presented to an outside hospital in [place], [place] with complaints of recurrent chest pain and shortness of breath, not getting any better with antacids. He was diagnosed with non-ST segment elevation myocardial infarction and was transferred to [facility] for further evaluation. Selective coronary angiogram over there showed significant multivessel coronary artery disease including proximal left main, prompting transfer to [facility] on 06/03/2024 for higher level of care. He was evaluated by Dr. Edmund Nash and underwent CABG x3, VALDEZ to LAD, reverse saphenous vein graft to the mid LAD, and reverse saphenous vein graft to the PDA on 06/04/2024. He was extubated on postoperative day #0. Chest tubes have been removed. Weaned off of epinephrine. Currently on room air. The patient is being transitioned out of the intensive care unit on 06/07/2024. I have been asked to see him for medical management. When seen in the room, the patient is awake, alert and oriented and verbalizes the above. PAST MEDICAL HISTORY: No previous medical history prior to this myocardial infarction. PAST SURGICAL HISTORY: None. SOCIAL HISTORY: , lives at home with his . No tobacco use. Occasional alcohol. FAMILY HISTORY: Noncontributory. MEDICATIONS: No home medications. Currently on Tylenol, aspirin 81 mg, atorvastatin 80 mg, bumetanide 1 mg twice daily, Plavix 75 mg, vitamin B12, Colace, Lovenox, ferrous sulfate, lactulose, metoprolol, methocarbamol. ALLERGIES: NO KNOWN DRUG ALLERGIES. REVIEW OF SYSTEMS: Prior to admission, upper respiratory symptoms. Acute onset PATIENT NAME: KADIE ROCHA of chest pain and shortness of breath. PHYSICAL EXAMINATION: GENERAL: Elderly male, not in any distress. VITAL SIGNS: Temperature 98.3, heart rate 75 regular, respiratory rate 18, blood pressure 142/67, oxygen saturation is 98% on room air. Weight is 78.7 kilograms. Body mass index 24.3. HEENT: Head is atraumatic. Pupils are equal and round. NECK: Supple. No thyromegaly. No JVD. HEART: Regular rate and rhythm. CHEST: Sternotomy site is clean. LUNGS: Clear to auscultation. ABDOMEN: Soft, nontender. EXTREMITIES: No edema, cyanosis or clubbing. Pedal pulses palpable. NEUROLOGICAL: No focal deficit. LABORATORY DATA: WBC 11.2, hemoglobin 9.5, hematocrit 27.3, platelets 113. Sodium 134, potassium 4.7, chloride 104, CO2 of 23, BUN 11, creatinine 0.9, GFR greater than 60, calcium 8.5, blood glucose 93, magnesium 1.7. IMAGING STUDIES: Chest x-ray shows mild cardiomegaly. Bibasilar atelectasis versus minimal infiltrate and small left effusion. No pneumothorax. ASSESSMENT AND PLAN: 1. Dar-CW-vobeumf elevation myocardial infarction around 06/01/2024. Selective coronary angiogram at an outside hospital showed left main 95%, chronic total occlusion of the left circumflex, mid left anterior descending 70 to 80%, right coronary artery 90% proximal, 80 to 90% mid and 90% distal stenosis. The patient is status post emergent coronary artery bypass graft x3, left internal mammary artery to left anterior descending, reverse saphenous vein graft to the first diagonal and reverse saphenous vein graft to the posterior descending coronary artery by Dr. Edmund Nash on 06/04/2024. Guideline directed medical therapy. 2. Acute systolic congestive cardiac failure, preoperative left ventricular ejection fraction 40%. Continue diuretics. 3. Anemia, likely chronic plus acute surgical blood loss anemia. Stable. 4. Leukocytosis, reactive. 5. Thrombocytopenia, noncritical. 6. Chronic kidney disease stage II. 7. Euglycemia. Hemoglobin A1c is 5.1. Discontinue Accu-Cheks and sliding scale. 8. Acute debility. Continue physical therapy. 9. Cardiogenic shock, related to yeo-AL-zycgzbo elevation myocardial infarction, resolved. 10. Lactic acidemia related to surgery, resolved. Plan of care discussed with the consultants. Dictated By: Abigail Ruiz MD Date Dictated: 06/07/2024 22:35:54 Date Transcribed: 06/08/2024 01:41:39 NEVAEH/MADI/EDWARD PATIENT NAME: KADIE ROCHA Receipt ID: [id number] Authenticated by Abigail Ruiz MD On 06/19/2024 02:48:28 PM at 0248 PATIENT NAME: KADIE ROCHA [facility] 2024-06-07 17:55:00 [facility] ([facility]) Hospitalist Clinical Note REPORT #: [id number] REPORT STATUS: Signed DATE: 06/07/24 TIME: 175 PATIENT: KADIE ROCHA UNIT #: [id number] ROOM #: P.[id number] BED: 1 : 45 AGE: 78 SEX: M ATTEND: Coby Jain MD [facility] AUTHOR: Abigail Ruiz MD ATTENTION *EDITS and/or ADDENDA must be made in Patient Keeper for this note. * * Edits and ammendments created in [employer] are not visible * * in Patient Keeper or the legal medical record ([facility]). * -- NOTATION -- NOTATION: pt seen CN [id number] Signed in PatientKeeper by Abigail Ruiz MD on 06/07/24 at 22:38 at 2238 ATTENTION *EDITS and/or ADDENDA must be made in Patient Keeper for this note. * * Edits and ammendments created in [employer] are not visible * * in Patient Keeper or the legal medical record ([facility]). * RPT #: [id number] END OF REPORT [facility] 2024-06-07 14:43:00 [facility] ([facility]) Intensive Care Progress Note REPORT #: [id number] REPORT STATUS: Signed DATE: 06/07/24 TIME: 1443 PATIENT: KADIE ROCHA UNIT #: [id number] ROOM #: [facility] BED: 1 : 45 AGE: 78 SEX: M ATTEND: Coby Jain MD ADM AUTHOR: Coby Jain MD ATTENTION *EDITS and/or ADDENDA must be made in Patient Keeper for this note. * * Edits and ammendments created in [employer] are not visible * * in Patient Keeper or the legal medical record ([facility]). * -- ASSESSMENT AND PLAN -- HOSPITAL COURSE TO DATE: Mr. Rocha is a 70-year-old male with no known significant history who first presented to [facility] and diagnosed with Acute NSTEMI following which he was transferred to LTAC[facility] for further evaluation. At [facility] an LHC was done showing significant mvCAD including proximal Lt. Main disease leading to transfer to [facility] on 06/03 for CV Sx intervention. He arrived in the CVICU on ASA and heparin infusion. 06/04: CABG x3 VALDEZ-LAD, rSVG-mid LAD, rSVG-PDA by Dr. Nash 06/04: Extubated to 3 L NC 06/06: Chest tubes and lines out GENERAL ASSESSMENT: I have seen and examined him, reviewed his EMR information and data and discussed his plan of care with the other clinical and ancillary services. Assessment and Plan Neuro ICU Analgesia Acute postop pain - On Acetaminophen, Tramadol, Robaxin and breakthrough [place] - Serially reassessing Resp Acute Respiratory Insufficiency - Adequate ABGs on room air - pCXR with bibasilar atelectasis and PVC - On IS, pulm hygiene, breathing Rx, OOB to chair, diuresis, wean FiO2 - Serially reassessing with exam, imaging, prn ABGs CV Cardiogenic Shock Acute NSTEMI mvCAD S/p CABG x 3 as above Ischemic Cardiomyopathy Lactic acidemia - In SR - Adequate perfusion indices - Off Epi infusion since AM - On ASA, Plavix, Statin; hold adding BB for now - D/w CV Sx and Cardiology teams who are following GI Nutrition Constipation - On Cardiac diet - cont bowel regimen Renal Lactic Acidosis Fluid overload - Adequate BUN, Cr - Increased Bumex to 1mg IV BID - Serially reassessing UO, lytes, fluid status Heme Acute blood loss anemia Thrombocytopenia not present on admission - Adequate and equilibrating H/h, Plats - No bleeding focus - Serially reassessing Endo Hyperglycemia - On titratable Lantus and ISS - Checking Hba1c - Serially reassessing ID Periop OK/Periop leukocytosis - Afebrile with leukocytosis - No acute ID focus - Completed periop antibiotics - Serially reassessing Prophylaxis - lovenox - SCDs - H2B Medications reviewed with the Clinical Pharmacist Advanced Care Planning: Code: Full MPOA: Advanced Care Plan: Yes -- SUBJECTIVE -- PATIENT NARRATIVE: Overnight Events: No acute overnight events. 10 System, 2 point ROS negative except for above. -- OBJECTIVE -- VITALS (06/06 14:43 - 06/07 14:43): Temperature F: 99.5 (98.2 - 99.5) Temperature C: 37.1 (36.6 - 37.1) Temperature source: Oral Pulse Rate 74 (60 - 86) Respiratory rate: 17 (12 - 36) Blood pressure: 109/56 (106/40 - 157/67) Blood pressure source: Monitor I/Os (06/06 07:00 - 06/07 07:00): Net -153.40 Intake 826.60 Output 980 -- DATA -- MEDICATIONS polyethylene glycoL 3350 1 PKT PO DAILY SODIUM PHOSPHATE with/in SODIUM CHLORIDE 0.9% 30 MM IV ASDIR (PRN) ACETAMINOPHEN 650 MG RECTAL Q4H PRN SODIUM BICARBONATE 8.4% 50 MEQ IV ASDIR PRN SOD BIPHOS/POT PHOSPHATE 2 PKT PO ASDIR (PRN) DEXTROSE 50%-WATER 25 ML IV ASDIR PRN DOCUSATE SODIUM 200 MG PO DAILY SODIUM CHLORIDE 10 mL 10 ML IV ASDIR NOREPINEPHRINE BITARTRATE 4 MG IV TITRATE CYANOCOBALAMIN 500 MCG PO DAILY ONDANSETRON HCL/PF 4 MG IV Q6H PRN POTASSIUM CHLORIDE 20 MEQ IV ASDIR (PRN) INSULIN LISPRO 0 UNITS SUBQ C MEALS HS METOPROLOL TARTRATE 12.5 MG PO Q12HR ASPIRIN 81 MG PO DAILY BUMETANIDE 1 MG IV Q12HR GLUCAGON 1 MG IM ASDIR PRN ENOXAPARIN SODIUM 40 MG SUBQ DAILY EPINEPHrine HCL/D5W 4 MG IV ASDIR bisacodyL 10 MG RECTAL ASDIR PRN methocarbamoL 750 MG PO Q8H PRN POTASSIUM CHLORIDE 20 MEQ PO ASDIR (PRN) LACTULOSE 30 ML PO ASDIR PRN DEXTROSE 50%-WATER 25 ML IV ASDIR (PRN) ACETAMINOPHEN 650 MG PO Q4H PRN DEXTROSE 50%-WATER 25 ML IV ASDIR PRN MAGNESIUM 1 GM IV ASDIR PRN CALCIUM GLUC IN NACL, ISO-OSM 2 GM IV ASDIR PRN traMADol HCL 50 MG PO Q6H PRN SODIUM PHOSPHATE with/in SODIUM CHLORIDE 0.9% 20 MM IV ASDIR (PRN) clopidogreL 75 MG PO DAILY FERROUS SULFATE 325 MG PO DAILY MUPIROCIN 1 APPLIC NASAL BID ATORVASTATIN CALCIUM 80 MG PO BEDTIME LABS PHOS (06/07/24 11:00) PHOSPHOROUS 2.5 MAG (06/07/24 11:00) MAGNESIUM 2.0 BASIC METABOLIC PANEL (06/07/24 11:00) SODIUM 135L L POTASSIUM 4.4 CHLORIDE 103 CARBON DIOXIDE 27 GLUCOSE 99 BLOOD UREA NITROGEN 15 GLOMERULAR FILTRATION RATE >=60 max estimate CREATININE 0.90 CALCIUM 8.2 L GLU BED (06/07/24 08:57) GLUBED 100 MAG (06/07/24 02:45) MAGNESIUM 2.0 PHOS (06/07/24 02:45) PHOSPHOROUS 3.3 BASIC METABOLIC PANEL (06/07/24 02:45) SODIUM 137 POTASSIUM 4.5 CHLORIDE 105 CARBON DIOXIDE 25 GLUCOSE 102 BLOOD UREA NITROGEN 18 GLOMERULAR FILTRATION RATE >=60 max estimate CREATININE 0.90 CALCIUM 8.1 L CBC W/AUTO DIFF (06/07/24 02:45) WHITE BLOOD CELL 11.2H H RED BLOOD CELL 2.97 L HEMOGLOBIN 9.5L L HEMATOCRIT 27.3L L MEAN CELL VOLUME 91.9 MEAN CELL HGB 32.0 H MEAN CELL HGB CONCENTRATION 34.8 RED CELL DISTRIBUTION WIDTH 14.3 PLATELET COUNT 113L L MEAN PLATELET VOLUME 10.1 NEUTROPHIL % 80.3 H LYMPHOCYTE % 11.4 L MONOCYTE % 7.4 EOSINOPHIL % 0.3 BASOPHIL % 0.2 NEUTROPHIL # 8.95 H LYMPHOCYTE # 1.27 MONOCYTE # 0.83 H EOSINOPHIL # 0.03 BASOPHIL # 0.02 GLU BED (06/06/24 21:13) GLUBED 123 H PHOS (06/06/24 16:36) PHOSPHOROUS 2.7 CBC W/AUTO DIFF (06/06/24 16:36) WHITE BLOOD CELL 15.5H H RED BLOOD CELL 2.98 L HEMOGLOBIN 9.7L L HEMATOCRIT 27.1L L MEAN CELL VOLUME 90.9 MEAN CELL HGB 32.6 H MEAN CELL HGB CONCENTRATION 35.8 RED CELL DISTRIBUTION WIDTH 14.5 PLATELET COUNT 114L L MEAN PLATELET VOLUME 10.6 NEUTROPHIL % 83.6 H LYMPHOCYTE % 7.9 L MONOCYTE % 7.8 EOSINOPHIL % 0.1 BASOPHIL % 0.1 NEUTROPHIL # 12.93 H LYMPHOCYTE # 1.22 MONOCYTE # 1.21 H EOSINOPHIL # 0.02 BASOPHIL # 0.01 COMPREHENSIVE METABOLIC PANEL (06/06/24 16:36) SODIUM 135 L POTASSIUM 4.0 CHLORIDE 105 CARBON DIOXIDE 26 GLUCOSE 116 H BLOOD UREA NITROGEN 18 GLOMERULAR FILTRATION RATE >=60 max estimate CREATININE 0.90 TOTAL PROTEIN 6.0 ALBUMIN 3.7 CALCIUM 8.2 L BILIRUBIN TOTAL 0.6 SGOT/AST 38 H SGPT/ALT 13 ALKALINE PHOSPHATASE 37.0 L MAG (06/06/24 16:36) MAGNESIUM 2.2 -- ATTESTATION -- TIME SPENT ON PATIENT CARE: - Critical Care: time spent apart from any procedure 35 minutes CARE ACTIVITIES / CARE COORDINATION: - I have reviewed the history and repeated the glass elements - I have seen and examined this patient - I have reviewed the progress in the clinical course since the last examination - I have discussed the patient's condition with other members of the care team Signed in PatientKeeper by Coby Jain MD on 06/07/24 at 14:45 at 1445 ATTENTION *EDITS and/or ADDENDA must be made in Patient Keeper for this note. * * Edits and ammendments created in [employer] are not visible * * in Patient Keeper or the legal medical record ([facility]). * [facility] #: [id number] END OF REPORT [facility] 2024-06-07 10:50:00 [id number] [facility] [address] [place] [address] PATIENT NAME: KADIE ROCHA ADMIT DATE: 06/03/24 ACCOUNT NO: [id number] ROOM NO: [facility] AGE: 78 REPORT TYPE: 360 - QUERY RESPONSE DOCUMENT SEX: M ADMITTING PHYSICIAN: Gulshan Lai MD ATTENDING PHYSICIAN: Gulshan Lai MD Provider Query QUERY TEXT: Type Heart Failure 360MD Query related questions should be directed to: [facility] Coding Query Helpline The medical record reflects the diagnosis of [Acute Decompensated Chronic Congestive Heart Failure] in the [Hospitalist Discharge Summary 06/03/2024 (1), and pertinent studies for type (e.g. echocardiogram, cardiac catheterization, abnormal EF) or pertinent clinical indicators for acuity (e.g. Elevated BNP, IV diuretics, abnormal imaging studies, etc.) Based on your clinical judgment, can you further clarify the type of the heart failure that represents the clinical indicators listed below? The patient's Clinical Indicators include: Acute Decompensated Chronic Congestive Heart Failure; Hospitalist Discharge Summary 06/03/2024 (1) NT PRO-BRAIN NATRIURETIC PEPTI (PG/ML) 1824H; laboratory results The estimated ejection fraction is 45-49%.; ECHOCARDIOGRAM 06/04/2024 (3) Wall thickness is normal. Systolic function is mildly reduced; ECHOCARDIOGRAM 06/04/2024 (3) Ischemic cardiomyopathy; Cardiology Consultation 06/03/2024 (1) HEPARIN SODIUM,PORCINE/D5W [id number] UNIT/500 ML ML 00:09 1 MLS Intravenous; mar Options provided: -- Systolic -- Diastolic -- Systolic and Diastolic -- Left Ventricular Failure -- Biventricular Heart Failure -- High Output Heart Failure -- Right Heart Failure, Please specify if due to left heart failure. -- End Stage Heart Failure -- Other - I will add my own diagnosis -- Dismiss - Not applicable / Not valid -- Dismiss - Clinically unable to determine / Unknown -- Assign to another provider QUERY RESPONSE: Patient had Systolic (HFrEF) Heart Failure. Query created by: Kath Luna on 06/07/2024 12:15 AM at 1050 PATIENT NAME: KADIE ROCHA [facility] 2024-06-07 07:51:00 [facility] ([facility]) Cardiology Progress Notes REPORT #: [id number] REPORT STATUS: Signed DATE: 06/07/24 TIME: 750 PATIENT: KADIE ROCHA UNIT #: [id number] ROOM #: P.0418 BED: A : 45 AGE: 78 SEX: M ATTEND: Coby Jain MD ADM AUTHOR: Estiven Price DO CF1 ATTENTION *EDITS and/or ADDENDA must be made in Patient Keeper for this note. * * Edits and ammendments created in [employer] are not visible * * in Patient Keeper or the legal medical record ([facility]). * -- CO-SIGNATURE -- COMMENTS: I have seen and examined the patient with the tool sharpener, Estiven Price DO on June 07, 2024. I have reviewed all the clinical information, lab investigations, and imaging data. I agree with the following examination, findings, assessment and plan. I was present and supervised. Signed in PatientKeeper by FREIDA SUTTON MD on 06/09/24 at 07:12 -- ASSESSMENT AND PLAN -- GENERAL ASSESSMENT: Mr. Rocha is a 78 year old male with no significant PMH who was transferred from [facility] after presenting initially to [facility] for evaluation of substernal chest pain that started a few days prior. Pt was found to have elevated troponins with nonspecific EKG changes and then was transferred to [place] and found to have MV CAD. Patient was taken to the Director Of District Office and found to have a left main 95% lesion proximal to a PROFESSIONAL NURSING ASSISTANT of the Left circumflex, mid LAD has a 70-80% lesion, RCA has a 90% proximal, 80-90% mid, and 90% distal stenosis. Pt transferred to [facility] for CABG evaluation. On arrival, asymptomatic. VS stable. Labs notable for BNP 314, Hgb 12.8, otherwise grossly unremarkable. Pt being taken for CABG by Dr. Nash. PROBLEMS: 1: Multiple vessel coronary artery disease A/P: - Pt presenting with chest pain, found to have elevated troponin; nonspecific EKG changes - LHC at [facility] showed left main 95% lesion proximal to a PROFESSIONAL NURSING ASSISTANT of the LCx, mid LAD has a 70-80% lesion, RCA has a 90% proximal, 80-90% mid, and 90% distal stenosis. - s/p 3V CABG w/ Dr. Nash on 06/04 (VALDEZ - LAD, SVG - 1st diag, SVG - PDA) - preop LVEF 40 - Continue asa, statin, hold off beta blockers due to bradycardia - Increased diuretics today; monitor I/Os - Off vasopressors - Removed all chest tubes, CVP, Arterial line and segura Discussed with Dr. Sutton. -- SUBJECTIVE -- HPI: No acute events overnight. VS stable. Pt still hypervolemic, I/Os even, will increase diuretics today. No complaints at this time. -REVIEW OF SYSTEMS- COMMENT: Negative except as per in HPI. -- OBJECTIVE -- VITALS (06/06 07:51 - 06/07 07:51): Temperature F: 98.2 (97.6 - 98.2) Temperature C: 37.1 (36.6 - 37.1) Temperature source: Oral Pulse Rate 74 (56 - 81) Respiratory rate: 17 (12 - 26) Blood pressure: 136/65 (106/38 - 157/65) Blood pressure source: Monitor I/Os (06/06 07:00 - 06/07 07:00): Net -153.40 Intake 826.60 Output 980 -EXAM- GENERAL: Well developed, well nourished, in no apparent distress. HEAD: Normocephalic, atraumatic. MOUTH: Oropharynx without deformities or lesions, normal mucosa.. NECK: No masses, no thyromegaly, no abnormal cervical nodes, trachea midline. CHEST: Grossly normal appearance. LUNGS: Clear bilaterally with normal respiratory effort. HEART: Regular rate and rhythm, normal S1, S2, no murmurs, no rubs, no gallops, no clicks. ABDOMEN: Soft, non-tender, no organomegaly, no masses noted. EXTREMITIES: bilateral LE edema NEUROLOGICAL: Alert and oriented. No focal deficits. PULSES: Pulses normal in all extremities. SKIN: Intact without significant lesions, or rashes. PSYCHIATRIC: Normal mood and affect, intact judgment and insight. -- DATA -- MEDICATIONS polyethylene glycoL 3350 1 PKT PO DAILY SODIUM PHOSPHATE with/in SODIUM CHLORIDE 0.9% 30 MM IV ASDIR (PRN) ACETAMINOPHEN 650 MG PO Q6H ACETAMINOPHEN 650 MG RECTAL Q4H PRN SODIUM BICARBONATE 8.4% 50 MEQ IV ASDIR PRN SOD BIPHOS/POT PHOSPHATE 2 PKT PO ASDIR (PRN) DEXTROSE 50%-WATER 25 ML IV ASDIR PRN DOCUSATE SODIUM 200 MG PO DAILY SODIUM CHLORIDE 10 mL 10 ML IV ASDIR NOREPINEPHRINE BITARTRATE 4 MG IV TITRATE CYANOCOBALAMIN 500 MCG PO DAILY ONDANSETRON HCL/PF 4 MG IV Q6H PRN POTASSIUM CHLORIDE 20 MEQ IV ASDIR (PRN) INSULIN LISPRO 0 UNITS SUBQ C MEALS HS ASPIRIN 81 MG PO DAILY BUMETANIDE 1 MG IV Q12HR GLUCAGON 1 MG IM ASDIR PRN ENOXAPARIN SODIUM 40 MG SUBQ DAILY EPINEPHrine HCL/D5W 4 MG IV ASDIR bisacodyL 10 MG RECTAL ASDIR PRN methocarbamoL 750 MG PO Q8H PRN POTASSIUM CHLORIDE 20 MEQ PO ASDIR (PRN) LACTULOSE 30 ML PO ASDIR PRN DEXTROSE 50%-WATER 25 ML IV ASDIR (PRN) ACETAMINOPHEN 650 MG PO Q4H PRN DEXTROSE 50%-WATER 25 ML IV ASDIR PRN MAGNESIUM 1 GM IV ASDIR PRN CALCIUM GLUC IN NACL, ISO-OSM 2 GM IV ASDIR PRN traMADol HCL 50 MG PO Q6H PRN SODIUM PHOSPHATE with/in SODIUM CHLORIDE 0.9% 20 MM IV ASDIR (PRN) clopidogreL 75 MG PO DAILY FERROUS SULFATE 325 MG PO DAILY MUPIROCIN 1 APPLIC NASAL BID ATORVASTATIN CALCIUM 80 MG PO BEDTIME LABS BASIC METABOLIC PANEL (06/07/24 02:45) SODIUM 137 POTASSIUM 4.5 CHLORIDE 105 CARBON DIOXIDE 25 GLUCOSE 102 BLOOD UREA NITROGEN 18 GLOMERULAR FILTRATION RATE >=60 max estimate CREATININE 0.90 CALCIUM 8.1 L CBC W/AUTO DIFF (06/07/24 02:45) WHITE BLOOD CELL 11.2H H RED BLOOD CELL 2.97 L HEMOGLOBIN 9.5L L HEMATOCRIT 27.3L L MEAN CELL VOLUME 91.9 MEAN CELL HGB 32.0 H MEAN CELL HGB CONCENTRATION 34.8 RED CELL DISTRIBUTION WIDTH 14.3 PLATELET COUNT 113L L MEAN PLATELET VOLUME 10.1 NEUTROPHIL % 80.3 H LYMPHOCYTE % 11.4 L MONOCYTE % 7.4 EOSINOPHIL % 0.3 BASOPHIL % 0.2 NEUTROPHIL # 8.95 H LYMPHOCYTE # 1.27 MONOCYTE # 0.83 H EOSINOPHIL # 0.03 BASOPHIL # 0.02 MAG (06/07/24 02:45) MAGNESIUM 2.0 PHOS (06/07/24 02:45) PHOSPHOROUS 3.3 GLU BED (06/06/24 21:13) GLUBED 123 H COMPREHENSIVE METABOLIC PANEL (06/06/24 16:36) SODIUM 135 L POTASSIUM 4.0 CHLORIDE 105 CARBON DIOXIDE 26 GLUCOSE 116 H BLOOD UREA NITROGEN 18 GLOMERULAR FILTRATION RATE >=60 max estimate CREATININE 0.90 TOTAL PROTEIN 6.0 ALBUMIN 3.7 CALCIUM 8.2 L BILIRUBIN TOTAL 0.6 SGOT/AST 38 H SGPT/ALT 13 ALKALINE PHOSPHATASE 37.0 L MAG (06/06/24 16:36) MAGNESIUM 2.2 PHOS (06/06/24 16:36) PHOSPHOROUS 2.7 CBC W/AUTO DIFF (06/06/24 16:36) WHITE BLOOD CELL 15.5H H RED BLOOD CELL 2.98 L HEMOGLOBIN 9.7L L HEMATOCRIT 27.1L L MEAN CELL VOLUME 90.9 MEAN CELL HGB 32.6 H MEAN CELL HGB CONCENTRATION 35.8 RED CELL DISTRIBUTION WIDTH 14.5 PLATELET COUNT 114L L MEAN PLATELET VOLUME 10.6 NEUTROPHIL % 83.6 H LYMPHOCYTE % 7.9 L MONOCYTE % 7.8 EOSINOPHIL % 0.1 BASOPHIL % 0.1 NEUTROPHIL # 12.93 H LYMPHOCYTE # 1.22 MONOCYTE # 1.21 H EOSINOPHIL # 0.02 BASOPHIL # 0.01 GLU BED (06/06/24 13:03) GLUBED 132 H GLU BED (06/06/24 08:44) GLUBED 137 H Signed in PatientKeeper by Estiven Price on 06/07/24 at 17:42 Cosigned by FREIDA SUTTON MD on 06/09/24 at 07:12 at 0712 at 0712 ATTENTION *EDITS and/or ADDENDA must be made in Patient Keeper for this note. * * Edits and ammendments created in [facility] are not visible * * in Patient Keeper or the legal medical record (HPF). * RPT #: [id number] END OF REPORT [facility] 2024-06-06 16:58:00 [facility] ([facility]) Intensive Care Progress Note REPORT #: [id number] REPORT STATUS: Signed DATE: 06/06/24 TIME: 1658 PATIENT: KADIE ROCHA UNIT #: [id number] ROOM #: [id number] BED: 1 : 45 AGE: 78 SEX: M ATTEND: Coby Jain MD ADM AUTHOR: Beltran Edwards MD ATTENTION *EDITS and/or ADDENDA must be made in Patient Keeper for this note. * * Edits and ammendments created in [facility] are not visible * * in Patient Keeper or the legal medical record (HPF). * -- ASSESSMENT AND PLAN -- HOSPITAL COURSE TO DATE: Mr. Rocha is a 70-year-old male with no known significant history who first presented to [facility] and diagnosed with Acute NSTEMI following which he was transferred to LTAC[facility] located within [facility] for further evaluation. At [place] an LHC was done showing significant mvCAD including proximal Lt. Main disease leading to transfer to [facility] on 06/03 for CV Sx intervention. He arrived in the CVICU on ASA and heparin infusion. 06/04: CABG x3 VALDEZ-LAD, rSVG-mid LAD, rSVG-PDA by Dr. Nash 06/04: Extubated to 3 L NC 06/06: Chest tubes and lines out GENERAL ASSESSMENT: I have seen and examined him, reviewed his EMR information and data and discussed his plan of care with the other clinical and ancillary services. Assessment and Plan Neuro ICU Analgesia Acute postop pain - On Acetaminophen, Tramadol, Robaxin and breakthrough [place] - Serially reassessing Resp Acute Respiratory Insufficiency - Adequate ABGs on LFNC - pCXR with bibasilar atelectasis and PVC - On IS, pulm hygiene, breathing Rx, OOB to chair, diuresis, wean FiO2 - Serially reassessing with exam, imaging, prn ABGs CV Cardiogenic Shock Acute NSTEMI mvCAD S/p CABG x 3 as above Ischemic Cardiomyopathy Lactic acidemia - In SR - Adequate perfusion indices - On Epinephrine infusion - On ASA, Plavix, Statin - Weaning Epi with serial exam, perfusion indices - D/w CV Sx and Cardiology teams who are following GI Nutrition - On Cardiac diet Renal Lactic Acidosis Fluid overload - Adequate BUN, Cr - Adequate UO, lytes on Bumex - Lactic acid trending down - Serially reassessing UO, lytes, fluid status Heme Acute blood loss anemia Thrombocytopenia not present on admission - Adequate and equilibrating H/h, Plats - No bleeding focus - Serially reassessing Endo Hyperglycemia - On titratable Lantus and ISS - Checking Hba1c - Serially reassessing ID Periop OK/Periop leukocytosis - Afebrile with leukocytosis - No acute ID focus - Completed periop antibiotics - Serially reassessing Prophylaxis - For Lovenox in the AM - SCDs - H2B Medications reviewed with the Clinical Pharmacist Advanced Care Planning: Code: Full MPOA: Advanced Care Plan: Yes -- OBJECTIVE -- VITALS (06/05 16:58 - 06/06 16:58): Temperature F: 98.2 (97.5 - 98.4) Temperature source: Oral Pulse Rate 73 (56 - 73) Respiratory rate: 26 (12 - 26) Blood pressure: 154/53 (109/36 - 157/55) Blood pressure source: Arterial I/Os (06/05 07:00 - 06/06 07:00): Net -304.50 Intake 1,667.50 Output 1,972 -- DATA -- MEDICATIONS polyethylene glycoL 3350 1 PKT PO DAILY SODIUM PHOSPHATE with/in SODIUM CHLORIDE 0.9% 30 MM IV ASDIR (PRN) LACTULOSE 30 ML PO ASDIR PRN ACETAMINOPHEN 650 MG PO Q6H ACETAMINOPHEN 650 MG RECTAL Q4H PRN BUMETANIDE 0.5 MG IV Q12HR SODIUM BICARBONATE 8.4% 50 MEQ IV ASDIR PRN SOD BIPHOS/POT PHOSPHATE 2 PKT PO ASDIR (PRN) DEXTROSE 50%-WATER 25 ML IV ASDIR PRN DOCUSATE SODIUM 200 MG PO DAILY SODIUM CHLORIDE 10 mL 10 ML IV ASDIR NOREPINEPHRINE BITARTRATE 4 MG IV TITRATE CYANOCOBALAMIN 500 MCG PO DAILY ONDANSETRON HCL/PF 4 MG IV Q6H PRN POTASSIUM CHLORIDE 20 MEQ IV ASDIR (PRN) INSULIN LISPRO 0 UNITS SUBQ C MEALS HS ASPIRIN 81 MG PO DAILY GLUCAGON 1 MG IM ASDIR PRN ENOXAPARIN SODIUM 40 MG SUBQ DAILY EPINEPHrine HCL/D5W 4 MG IV ASDIR bisacodyL 10 MG RECTAL ASDIR PRN methocarbamoL 750 MG PO Q8H PRN POTASSIUM CHLORIDE 20 MEQ PO ASDIR (PRN) LACTULOSE 30 ML PO ASDIR PRN DEXTROSE 50%-WATER 25 ML IV ASDIR (PRN) ACETAMINOPHEN 650 MG PO Q4H PRN DEXTROSE 50%-WATER 25 ML IV ASDIR PRN MAGNESIUM 1 GM IV ASDIR PRN CALCIUM GLUC IN NACL, ISO-OSM 2 GM IV ASDIR PRN traMADol HCL 50 MG PO Q6H PRN SODIUM PHOSPHATE with/in SODIUM CHLORIDE 0.9% 20 MM IV ASDIR (PRN) clopidogreL 75 MG PO DAILY FERROUS SULFATE 325 MG PO DAILY MUPIROCIN 1 APPLIC NASAL BID ATORVASTATIN CALCIUM 80 MG PO BEDTIME LABS GLU BED (06/06/24 13:03) GLUBED 132 H GLU BED (06/06/24 08:44) GLUBED 137 H BLOOD GAS W/ELECTROLYTES (06/06/24 06:58) ARTERIAL BLOOD GAS PH 7.40 ARTERIAL BLOOD GAS PCO2 35.0 ARTERIAL BLOOD GAS PO2 81.0 BICARBONATE TOTAL HCO3 21.2 L BASE EXCESS -3.1 L ABG O2 SATURATION 96.2 ARTERIAL FIO2 70.0 ABG VENT MODE NASAL CANNULA ALLENS TEST NOT APPLICABLE SODIUM (POC) 133 L POTASSIUM (POC) 4.18 CHLORIDE (ARTERIAL) 103 GLUCOSE 126 H IONIZED CALCIUM 1.16 POC LACTIC ACID 1.18 TOTAL HGB 9.9 D L CARBOXYHEMOGLOBIN 0.3 METHEMOGLOBIN <0.8 HHb 3.8 TCO2 ARTERIAL 22.3 L PROTHROMBIN TIME (06/06/24 03:03) PROTHROMBIN TIME PATIENT 12.2 INTERNATIONAL NORMAL RATIO 1.09 PHOS (06/06/24 03:03) PHOSPHOROUS 3.5 BASIC METABOLIC PANEL (06/06/24 03:03) SODIUM 138 POTASSIUM 4.3 CHLORIDE 107 CARBON DIOXIDE 26 GLUCOSE 129H H BLOOD UREA NITROGEN 17 GLOMERULAR FILTRATION RATE >=60 max estimate CREATININE 1.00 CALCIUM 8.5 L PTT (06/06/24 03:03) THROMBOPLASTIN TIME PARTIAL 29.4 CBC W/AUTO DIFF (06/06/24 03:03) WHITE BLOOD CELL 18.4H H RED BLOOD CELL 2.88 L HEMOGLOBIN 9.4L L HEMATOCRIT 26.2L L MEAN CELL VOLUME 91.0 MEAN CELL HGB 32.6 H MEAN CELL HGB CONCENTRATION 35.9 RED CELL DISTRIBUTION WIDTH 14.4 PLATELET COUNT 111L L MEAN PLATELET VOLUME 9.9 NEUTROPHIL % 84.2 H LYMPHOCYTE % 7.1 L MONOCYTE % 8.0 EOSINOPHIL % 0.1 BASOPHIL % 0.1 NEUTROPHIL # 15.45 H LYMPHOCYTE # 1.30 MONOCYTE # 1.47 H EOSINOPHIL # 0.01 BASOPHIL # 0.02 MAG (06/06/24 03:03) MAGNESIUM 2.2 HGBA1C - GLYCOSYLATED HGB (06/06/24 03:02) GLYCOSYLATED HEMOGLOBIN (HA1C) 5.1 BLOOD GAS W/ELECTROLYTES (06/05/24 20:09) ARTERIAL BLOOD GAS PH 7.37 ARTERIAL BLOOD GAS PCO2 40.3 ARTERIAL BLOOD GAS PO2 82.5 BICARBONATE TOTAL HCO3 22.6 BASE EXCESS -2.6 L ABG O2 SATURATION 96.3 ARTERIAL FIO2 28.0 ABG VENT MODE NASAL CANNULA ALLENS TEST NOT APPLICABLE SODIUM (POC) 134 L POTASSIUM (POC) 4.29 CHLORIDE (ARTERIAL) 104 GLUCOSE 142 H IONIZED CALCIUM 1.23 POC LACTIC ACID 1.45 TOTAL HGB 10.7 L OXYHEMOGLOBIN 95.4 CARBOXYHEMOGLOBIN 0.4 METHEMOGLOBIN <0.8 HHb 3.7 TCO2 ARTERIAL 23.8 L BASIC METABOLIC PANEL (06/05/24 20:04) SODIUM 139 POTASSIUM 4.4 CHLORIDE 107 CARBON DIOXIDE 24 GLUCOSE 132H H BLOOD UREA NITROGEN 15 GLOMERULAR FILTRATION RATE >=60 max estimate CREATININE 1.00 CALCIUM 8.8 PHOS (06/05/24 20:04) PHOSPHOROUS 3.9 MAG (06/05/24 20:04) MAGNESIUM 2.3 -- ATTESTATION -- TIME SPENT ON PATIENT CARE: - Critical Care: time spent apart from any procedure 35 minutes CARE ACTIVITIES / CARE COORDINATION: - I have reviewed the history and repeated the glass elements - I have seen and examined this patient - I have reviewed the progress in the clinical course since the last examination - I have discussed the patient's condition with other members of the care team Signed in PatientKeeper by Beltran Edwards MD on 06/07/24 at 09:03 at 0903 ATTENTION *EDITS and/or ADDENDA must be made in Patient Keeper for this note. * * Edits and ammendments created in [employer] are not visible * * in Patient Keeper or the legal medical record (HPF). * [facility] #: [id number] END OF REPORT [facility] 2024-06-06 09:47:00 [facility] ([facility]) Cardiology Progress Notes REPORT #: [id number] REPORT STATUS: Signed DATE: 06/06/24 TIME: 946 PATIENT: KADIE ROCHA UNIT #: [id number] ROOM #: P.[id number] BED: A : 45 AGE: 78 SEX: M ATTEND: Coby Jain MD ADM AUTHOR: Vladimir Vásquez MD CF1 ATTENTION *EDITS and/or ADDENDA must be made in Patient Keeper for this note. * * Edits and ammendments created in [employer] are not visible * * in Patient Keeper or the legal medical record (HPF). * -- CO-SIGNATURE -- COMMENTS: I have personally seen and examined the patient independently, and reviewed the patient's history, exam, and all cardiac and laboratory data on 06/06/24. I agree with the history, physical, and the assessment and plan as outlined by Vladimir Foley MD, Cardiovascular Fellow. Signed in PatientKeeper by EDI LAI MD on 06/19/24 at 13:15 -- ASSESSMENT AND PLAN -- GENERAL ASSESSMENT: Mr. Rocha is a 78 year old male with no significant PMH who was transferred from LT[facility] after presenting initially to [facility] for evaluation of substernal chest pain that started a few days prior. Pt was found to have elevated troponins with nonspecific EKG changes and then was transferred to [place] and found to have MV CAD. Patient was taken to the [facility] Of [facility] and found to have a left main 95% lesion proximal to a PROFESSIONAL NURSING ASSISTANT of the Left circumflex, mid LAD has a 70-80% lesion, RCA has a 90% proximal, 80-90% mid, and 90% distal stenosis. Pt transferred to [facility] for CABG evaluation. On arrival, asymptomatic. VS stable. Labs notable for BNP 314, Hgb 12.8, otherwise grossly unremarkable. Pt being taken for CABG by Dr. Nash Problems: 1. Multiple vessel coronary artery disease A/P: - LHC at [facility] showed left main 95% lesion proximal to a PROFESSIONAL NURSING ASSISTANT of the LCx, mid LAD has a 70-80% lesion, RCA has a 90% proximal, 80-90% mid, and 90% distal stenosis. s/p 3V CABG w/ Dr. Nash on 06/04 (VALDEZ - LAD, SVG - 1st diag, SVG - PDA) - preop LVEF 40 - Continue asa, statin, hold off beta blockers due to bradycardia - Continue bumex -Titrate down Epi gtt today per CTS - Remove all chest tubes, CVP, Arterial line and segura -- OBJECTIVE -- VITALS (06/05 09:47 - 06/06 09:47): Temperature F: 98.1 (97.5 - 98.4) Temperature source: Oral Pulse Rate 67 (57 - 67) Respiratory rate: 21 (13 - 25) Blood pressure: 120/43 (109/32 - 166/52) Blood pressure source: Arterial I/Os (06/05 07:00 - 06/06 07:00): Net -304.50 Intake 1,667.50 Output 1,972 -EXAM- GENERAL: Well developed, well nourished, in no apparent distress. HEAD: Normocephalic, atraumatic. NOSE: No deformity, no discharge, no inflammation, no lesions. MOUTH: Oropharynx without deformities or lesions, normal mucosa.. NECK: No masses, no thyromegaly, no abnormal cervical nodes, trachea midline. CHEST: Grossly normal appearance, chest tubes+ LUNGS: Clear bilaterally with normal respiratory effort. HEART: Regular rate and rhythm, normal S1, S2, no murmurs, ABDOMEN: Soft, non-tender, no organomegaly, no masses noted. EXTREMITIES: No clubbing, no cyanosis, no edema. NEUROLOGICAL: Alert and oriented. No focal deficits. PULSES: Pulses normal in all extremities. SKIN: Intact without significant lesions, or rashes. PSYCHIATRIC: Normal mood and affect, intact judgment and insight. -- DATA -- MEDICATIONS polyethylene glycoL 3350 1 PKT PO DAILY SODIUM PHOSPHATE with/in SODIUM CHLORIDE 0.9% 30 MM IV ASDIR (PRN) LACTULOSE 30 ML PO ASDIR PRN traMADol HCL 50 MG PO Q6H ACETAMINOPHEN 650 MG PO Q6H BUMETANIDE 0.5 MG IV Q12HR ACETAMINOPHEN 650 MG RECTAL Q4H PRN HYDROcodone BITARTRATE/APAP 1 TAB PO Q4H PRN SOD BIPHOS/POT PHOSPHATE 2 PKT PO ASDIR (PRN) SODIUM BICARBONATE 8.4% 50 MEQ IV ASDIR PRN DEXTROSE 50%-WATER 25 ML IV ASDIR PRN DOCUSATE SODIUM 200 MG PO DAILY SODIUM CHLORIDE 10 mL 10 ML IV ASDIR CYANOCOBALAMIN 500 MCG PO DAILY NOREPINEPHRINE BITARTRATE 4 MG IV TITRATE ONDANSETRON HCL/PF 4 MG IV Q6H PRN POTASSIUM CHLORIDE 20 MEQ IV ASDIR (PRN) INSULIN LISPRO 0 UNITS SUBQ C MEALS HS ASPIRIN 81 MG PO DAILY methocarbamoL 750 MG PO Q8H niCARdipine HCL with/in SODIUM CHLORIDE 100 mL BAG 25 MG IV TITRATE GLUCAGON 1 MG IM ASDIR PRN bisacodyL 10 MG RECTAL ASDIR PRN EPINEPHrine HCL/D5W 4 MG IV ASDIR LACTULOSE 30 ML PO ASDIR PRN POTASSIUM CHLORIDE 20 MEQ PO ASDIR (PRN) DEXTROSE 50%-WATER 25 ML IV ASDIR (PRN) ACETAMINOPHEN 650 MG PO Q4H PRN DEXTROSE 50%-WATER 25 ML IV ASDIR PRN MAGNESIUM 1 GM IV ASDIR PRN CALCIUM GLUC IN NACL, ISO-OSM 2 GM IV ASDIR PRN SODIUM PHOSPHATE with/in SODIUM CHLORIDE 0.9% 20 MM IV ASDIR (PRN) clopidogreL 75 MG PO DAILY FERROUS SULFATE 325 MG PO DAILY MUPIROCIN 1 APPLIC NASAL BID ATORVASTATIN CALCIUM 80 MG PO BEDTIME LABS GLU BED (06/06/24 08:44) GLUBED 137 H BLOOD GAS W/ELECTROLYTES (06/06/24 06:58) ARTERIAL BLOOD GAS PH 7.40 ARTERIAL BLOOD GAS PCO2 35.0 ARTERIAL BLOOD GAS PO2 81.0 BICARBONATE TOTAL HCO3 21.2 L BASE EXCESS -3.1 L ABG O2 SATURATION 96.2 ARTERIAL FIO2 70.0 ABG VENT MODE NASAL CANNULA ALLENS TEST NOT APPLICABLE SODIUM (POC) 133 L POTASSIUM (POC) 4.18 CHLORIDE (ARTERIAL) 103 GLUCOSE 126 H IONIZED CALCIUM 1.16 POC LACTIC ACID 1.18 TOTAL HGB 9.9 D L CARBOXYHEMOGLOBIN 0.3 METHEMOGLOBIN <0.8 HHb 3.8 TCO2 ARTERIAL 22.3 L PROTHROMBIN TIME (06/06/24 03:03) PROTHROMBIN TIME PATIENT 12.2 INTERNATIONAL NORMAL RATIO 1.09 PHOS (06/06/24 03:03) PHOSPHOROUS 3.5 BASIC METABOLIC PANEL (06/06/24 03:03) SODIUM 138 POTASSIUM 4.3 CHLORIDE 107 CARBON DIOXIDE 26 GLUCOSE 129H H BLOOD UREA NITROGEN 17 GLOMERULAR FILTRATION RATE >=60 max estimate CREATININE 1.00 CALCIUM 8.5 L PTT (06/06/24 03:03) THROMBOPLASTIN TIME PARTIAL 29.4 CBC W/AUTO DIFF (06/06/24 03:03) WHITE BLOOD CELL 18.4H H RED BLOOD CELL 2.88 L HEMOGLOBIN 9.4L L HEMATOCRIT 26.2L L MEAN CELL VOLUME 91.0 MEAN CELL HGB 32.6 H MEAN CELL HGB CONCENTRATION 35.9 RED CELL DISTRIBUTION WIDTH 14.4 PLATELET COUNT 111L L MEAN PLATELET VOLUME 9.9 NEUTROPHIL % 84.2 H LYMPHOCYTE % 7.1 L MONOCYTE % 8.0 EOSINOPHIL % 0.1 BASOPHIL % 0.1 NEUTROPHIL # 15.45 H LYMPHOCYTE # 1.30 MONOCYTE # 1.47 H EOSINOPHIL # 0.01 BASOPHIL # 0.02 MAG (06/06/24 03:03) MAGNESIUM 2.2 HGBA1C - GLYCOSYLATED HGB (06/06/24 03:02) GLYCOSYLATED HEMOGLOBIN (HA1C) 5.1 BLOOD GAS W/ELECTROLYTES (06/05/24 20:09) ARTERIAL BLOOD GAS PH 7.37 ARTERIAL BLOOD GAS PCO2 40.3 ARTERIAL BLOOD GAS PO2 82.5 BICARBONATE TOTAL HCO3 22.6 BASE EXCESS -2.6 L ABG O2 SATURATION 96.3 ARTERIAL FIO2 28.0 ABG VENT MODE NASAL CANNULA ALLENS TEST NOT APPLICABLE SODIUM (POC) 134 L POTASSIUM (POC) 4.29 CHLORIDE (ARTERIAL) 104 GLUCOSE 142 H IONIZED CALCIUM 1.23 POC LACTIC ACID 1.45 TOTAL HGB 10.7 L OXYHEMOGLOBIN 95.4 CARBOXYHEMOGLOBIN 0.4 METHEMOGLOBIN <0.8 HHb 3.7 TCO2 ARTERIAL 23.8 L BASIC METABOLIC PANEL (06/05/24 20:04) SODIUM 139 POTASSIUM 4.4 CHLORIDE 107 CARBON DIOXIDE 24 GLUCOSE 132H H BLOOD UREA NITROGEN 15 GLOMERULAR FILTRATION RATE >=60 max estimate CREATININE 1.00 CALCIUM 8.8 PHOS (06/05/24 20:04) PHOSPHOROUS 3.9 MAG (06/05/24 20:04) MAGNESIUM 2.3 BLOOD GAS W/ELECTROLYTES (06/05/24 16:58) ARTERIAL BLOOD GAS PH 7.37 ARTERIAL BLOOD GAS PCO2 35.2 ARTERIAL BLOOD GAS PO2 79.0 L BICARBONATE TOTAL HCO3 19.7 L BASE EXCESS -5.0 L ABG O2 SATURATION 95.8 ARTERIAL FIO2 21.0 ABG VENT MODE NA ALLENS TEST NOT APPLICABLE SODIUM (POC) 136 POTASSIUM (POC) 4.27 CHLORIDE (ARTERIAL) 104 GLUCOSE 144 H IONIZED CALCIUM 1.17 POC LACTIC ACID 1.82 TOTAL HGB 10.7 D L CARBOXYHEMOGLOBIN 0.1 METHEMOGLOBIN <0.8 HHb 4.2 TCO2 ARTERIAL 20.8 L MAG (06/05/24 16:51) MAGNESIUM 1.9 COMPREHENSIVE METABOLIC PANEL (06/05/24 16:51) SODIUM 141 POTASSIUM 4.3 CHLORIDE 108 H CARBON DIOXIDE 22 GLUCOSE 141 H BLOOD UREA NITROGEN 15 GLOMERULAR FILTRATION RATE >=60 max estimate CREATININE 1.00 TOTAL PROTEIN 5.9 ALBUMIN 3.8 CALCIUM 8.2 D L BILIRUBIN TOTAL 0.7 SGOT/AST 57 H SGPT/ALT 16 ALKALINE PHOSPHATASE 32.0 L PHOS (06/05/24 16:51) PHOSPHOROUS 3.7 CBC W/AUTO DIFF (06/05/24 16:51) WHITE BLOOD CELL 20.6H H RED BLOOD CELL 3.06 L HEMOGLOBIN 10.0L L HEMATOCRIT 27.9L L MEAN CELL VOLUME 91.2 MEAN CELL HGB 32.7 H MEAN CELL HGB CONCENTRATION 35.8 RED CELL DISTRIBUTION WIDTH 14.4 PLATELET COUNT 125L L MEAN PLATELET VOLUME 9.9 NEUTROPHIL % 89.6 H LYMPHOCYTE % 3.1 L MONOCYTE % 6.7 EOSINOPHIL % 0.0 BASOPHIL % 0.1 NEUTROPHIL # 18.46 H LYMPHOCYTE # 0.63 L MONOCYTE # 1.37 H EOSINOPHIL # 0.00 BASOPHIL # 0.02 Signed in PatientKeeper by Vladimir Vásquez MD on 06/06/24 at 09:52 Cosigned by EDI LAI MD on 06/19/24 at 13:15 at 1315 at 1315 ATTENTION *EDITS and/or ADDENDA must be made in Patient Keeper for this note. * * Edits and ammendments created in [facility] are not visible * * in Patient Keeper or the legal medical record ([facility]). * [facility] #: [id number] END OF REPORT [facility] 2024-06-05 15:05:00 [facility] ([facility]) Intensive Care Progress Note REPORT #: [id number] REPORT STATUS: Signed DATE: 06/05/24 TIME: 1505 PATIENT: KADIE ROCHA UNIT #: [id number] ROOM #: P.0321 BED: 1 : 45 AGE: 78 SEX: M ATTEND: Coby Jain MD ADM AUTHOR: Beltran Edwards MD ATTENTION *EDITS and/or ADDENDA must be made in Patient Keeper for this note. * * Edits and ammendments created in [employer] are not visible * * in Patient Keeper or the legal medical record (HPF). * -- ASSESSMENT AND PLAN -- HOSPITAL COURSE TO DATE: Mr. Rocha is a 70-year-old male with no known significant history who first presented to [facility] and diagnosed with Acute NSTEMI following which he was transferred to LT[facility] for further evaluation. At [place] an LHC was done showing significant mvCAD including proximal Lt. Main disease leading to transfer to [facility] on 06/03 for CV Sx intervention. He arrived in the CVICU on ASA and heparin infusion. 06/04: CABG x3 VALDEZ-LAD, rSVG-mid LAD, rSVG-PDA by Dr. Nash 06/04: Extubated to 3 L NC GENERAL ASSESSMENT: I have seen and examined him, reviewed his EMR information and data and discussed his plan of care with the other clinical and ancillary services. Assessment and Plan Neuro ICU Analgesia Acute postop pain - On Acetaminophen - Adding Tramadol, Robaxin and breakthrough [place] - Serially reassessing Resp Acute Respiratory Insufficiency - Tolerated extubation overnight - Adequate ABGs ob LFNC - pCXR with bibasilar atelectasis and PVC - On IS, pulm hygiene, breathing Rx, OOB to chair, wean FiO2 - Will add diuresis - Serially reassessing with exam, imaging, prn ABGs CV Cardiogenic Shock Acute NSTEMI mvCAD S/p CABG x 3 as above Ischemic Cardiomyopathy Lactic acidemia - In SR - Borderline perfusion indices - On Epinephrine infusion - On ASA - Adding Statin, Plavix - Weaning Epi with serial exam, perfusion indices - D/w CV Sx and Cardiology teams who are following GI Nutrition - On Clear liquid diet - Advancing to Cardiac diet Renal Lactic Acidosis Fluid overload - Adequate BUN, Cr - Adequate UO, lytes - Lactic acid trending down - Adding Bumex - Will serially reassess UO, lytes, fluid status Heme Acute blood loss anemia Thrombocytopenia not present on admission - Adequate and equilibrating H/h, Plats - No bleeding focus - Serially reassessing Endo Hyperglycemia - On insulin infusion protocol - Will transition to Lantus and ISS - Checking Hba1c - Serially reassessing ID Periop OK/Periop leukocytosis - Afebrile with leukocytosis - No acute ID focus - Completed periop antibiotics - Serially reassessing Prophylaxis - Pharmacoprophylaxis held 2/2 high risk of bleeding - SCDs - H2B Medications reviewed with the Clinical Pharmacist Advanced Care Planning: Code: Full MPOA: Advanced Care Plan: Yes -- OBJECTIVE -- VITALS (06/04 15:05 - 06/05 15:05): Temperature F: 97.8 (97.8 - 98.8) Temperature source: Oral Pulse Rate 63 (61 - 83) Respiratory rate: 25 (17 - 25) Blood pressure: 125/36 (98/36 - 173/69) Blood pressure source: Arterial I/Os (06/04 07:00 - 06/05 07:00): Net 621.10 Intake 2,698.10 Output 2,077 -- DATA -- MEDICATIONS ACETAMINOPHEN 1000 MG IV Q6H traMADol HCL 50 MG PO Q6H BUMETANIDE 0.5 MG IV Q12HR HYDROcodone BITARTRATE/APAP 1 TAB PO Q4H PRN SOD BIPHOS/POT PHOSPHATE 2 PKT PO ASDIR (PRN) DEXTROSE 50%-WATER 25 ML IV ASDIR PRN SODIUM CHLORIDE 10 mL 10 ML IV ASDIR CYANOCOBALAMIN 500 MCG PO DAILY ONDANSETRON HCL/PF 4 MG IV Q6H PRN ASPIRIN 81 MG PO DAILY methocarbamoL 750 MG PO Q8H GLUCAGON 1 MG IM ASDIR PRN bisacodyL 10 MG RECTAL ASDIR PRN LACTULOSE 30 ML PO ASDIR PRN DEXTROSE 50%-WATER 25 ML IV ASDIR (PRN) ACETAMINOPHEN 650 MG PO Q4H PRN DEXTROSE 50%-WATER 25 ML IV ASDIR PRN MAGNESIUM 1 GM IV ASDIR PRN SODIUM PHOSPHATE with/in SODIUM CHLORIDE 0.9% 20 MM IV ASDIR (PRN) FERROUS SULFATE 325 MG PO DAILY MUPIROCIN 1 APPLIC NASAL BID polyethylene glycoL 3350 1 PKT PO DAILY SODIUM PHOSPHATE with/in SODIUM CHLORIDE 0.9% 30 MM IV ASDIR (PRN) LACTULOSE 30 ML PO ASDIR PRN ACETAMINOPHEN 650 MG PO Q6H ACETAMINOPHEN 650 MG RECTAL Q4H PRN SODIUM BICARBONATE 8.4% 50 MEQ IV ASDIR PRN DOCUSATE SODIUM 200 MG PO DAILY NOREPINEPHRINE BITARTRATE 4 MG IV TITRATE POTASSIUM CHLORIDE 20 MEQ IV ASDIR (PRN) INSULIN LISPRO 0 UNITS SUBQ C MEALS HS MAGNESIUM HYDROXIDE 30 ML PO ASDIR PRN niCARdipine HCL with/in SODIUM CHLORIDE 100 mL BAG 25 MG IV TITRATE EPINEPHrine HCL/D5W 4 MG IV ASDIR POTASSIUM CHLORIDE 20 MEQ PO ASDIR (PRN) CALCIUM GLUC IN NACL, ISO-OSM 2 GM IV ASDIR PRN clopidogreL 75 MG PO DAILY ATORVASTATIN CALCIUM 80 MG PO BEDTIME LABS GLU BED (06/05/24 09:34) GLUBED 147 H GLU BED (06/05/24 06:16) GLUBED 89 GLU BED (06/05/24 05:15) GLUBED 103 GLU BED (06/05/24 04:06) GLUBED 122 H VENOUS BLOOD GAS (06/05/24 03:32) VENOUS BLOOD GAS PH 7.35 VENOUS BLOOD GAS PCO2 44.4 VENOUS BLOOD GAS PO2 34.1 VBG HCO3 24 VBG BASE EXCESS -1.9 VENOUS BLOOD GAS O2 SAT 73 VENOUS BLOOD GAS TYPE Venous VENOUS BLOOD GAS FIO2 28.0 VBG VENT MODE NC LACTIC ACID (06/05/24 03:11) LACTIC ACID 1.30 LIVER FUNCTION PANEL (06/05/24 03:11) TOTAL PROTEIN 5.3 L ALBUMIN 3.4 BILIRUBIN TOTAL 0.5 BILIRUBIN DIRECT 0.2 SGOT/AST 71 H SGPT/ALT 16 ALKALINE PHOSPHATASE 27.0 L PHOS (06/05/24 03:11) PHOSPHOROUS 4.0 D MAG (06/05/24 03:11) MAGNESIUM 2.0 PTT (06/05/24 03:11) THROMBOPLASTIN TIME PARTIAL 29.1 FIB (06/05/24 03:11) FIBRINOGEN 189 L BASIC METABOLIC PANEL (06/05/24 03:11) SODIUM 144 POTASSIUM 4.4 CHLORIDE 114H H CARBON DIOXIDE 22 GLUCOSE 125H H BLOOD UREA NITROGEN 10 GLOMERULAR FILTRATION RATE >=60 max estimate CREATININE 1.00 CALCIUM 9.4 PROTHROMBIN TIME (06/05/24 03:11) PROTHROMBIN TIME PATIENT 13.1 H INTERNATIONAL NORMAL RATIO 1.17 H CBC W/AUTO DIFF (06/05/24 03:11) WHITE BLOOD CELL 14.8H H RED BLOOD CELL 2.86 L HEMOGLOBIN 9.3L L HEMATOCRIT 26.4L L MEAN CELL VOLUME 92.3 MEAN CELL HGB 32.5 H MEAN CELL HGB CONCENTRATION 35.2 RED CELL DISTRIBUTION WIDTH 14.0 PLATELET COUNT 118L L MEAN PLATELET VOLUME 10.1 NEUTROPHIL % 88.7 H LYMPHOCYTE % 2.3 L MONOCYTE % 8.4 EOSINOPHIL % 0.0 BASOPHIL % 0.1 NEUTROPHIL # 13.15 H LYMPHOCYTE # 0.34 L MONOCYTE # 1.25 H EOSINOPHIL # 0.00 BASOPHIL # 0.01 BLOOD GAS W/ELECTROLYTES (06/05/24 03:08) ARTERIAL BLOOD GAS PH 7.37 ARTERIAL BLOOD GAS PCO2 39.9 ARTERIAL BLOOD GAS PO2 107.6 H BICARBONATE TOTAL HCO3 22.5 BASE EXCESS -2.5 L ABG O2 SATURATION 97.8 ARTERIAL FIO2 32.0 ABG VENT MODE NASAL CANNULA ALLENS TEST No SODIUM (POC) 140 POTASSIUM (POC) 4.31 CHLORIDE (ARTERIAL) 107 GLUCOSE 131 H IONIZED CALCIUM 1.26 POC LACTIC ACID 1.56 TOTAL HGB 10.0 L OXYHEMOGLOBIN 97.2 CARBOXYHEMOGLOBIN 0.3 METHEMOGLOBIN <0.8 HHb 2.2 TCO2 ARTERIAL 23.8 L GLU BED (06/05/24 02:14) GLUBED 134 H GLU BED (06/05/24 01:05) GLUBED 93 BLOOD GAS W/ELECTROLYTES (06/05/24 00:01) ARTERIAL BLOOD GAS PH 7.38 ARTERIAL BLOOD GAS PCO2 35.7 ARTERIAL BLOOD GAS PO2 117.8 H BICARBONATE TOTAL HCO3 20.8 L BASE EXCESS -3.8 L ABG O2 SATURATION 97.8 ARTERIAL FIO2 32.0 ABG VENT MODE NASAL CANNULA ALLENS TEST No SODIUM (POC) 141 POTASSIUM (POC) 4.02 CHLORIDE (ARTERIAL) 108 GLUCOSE 111 H IONIZED CALCIUM 1.17 POC LACTIC ACID 3.61 H TOTAL HGB 10.3 D L OXYHEMOGLOBIN 97.0 CARBOXYHEMOGLOBIN 0.3 METHEMOGLOBIN <0.8 HHb 2.2 TCO2 ARTERIAL 21.9 L GLU BED (06/04/24 23:11) GLUBED 127 H GLU BED (06/04/24 22:10) GLUBED 155 H GLU BED (06/04/24 21:07) GLUBED 174 H BLOOD GAS W/ELECTROLYTES (06/04/24 20:17) ARTERIAL BLOOD GAS PH 7.32 L ARTERIAL BLOOD GAS PCO2 35.0 ARTERIAL BLOOD GAS PO2 87.3 BICARBONATE TOTAL HCO3 17.5 L BASE EXCESS -7.8 L ABG O2 SATURATION 97.0 ARTERIAL FIO2 32.0 ABG VENT MODE NASAL CANNULA ALLENS TEST No SODIUM (POC) 143 POTASSIUM (POC) 3.76 CHLORIDE (ARTERIAL) 109 H GLUCOSE 185 H IONIZED CALCIUM 1.24 POC LACTIC ACID 8.02 H TOTAL HGB 11.2 L OXYHEMOGLOBIN 95.7 CARBOXYHEMOGLOBIN 0.8 METHEMOGLOBIN <0.8 HHb 3.0 TCO2 ARTERIAL 18.6 L CBC W/AUTO DIFF (06/04/24 20:16) WHITE BLOOD CELL 15.9H H RED BLOOD CELL 3.20 L HEMOGLOBIN 10.5L L HEMATOCRIT 29.0L L MEAN CELL VOLUME 90.6 MEAN CELL HGB 32.8 H MEAN CELL HGB CONCENTRATION 36.2 RED CELL DISTRIBUTION WIDTH 13.9 PLATELET COUNT 139L L MEAN PLATELET VOLUME 9.8 NEUTROPHIL % 92.0 H LYMPHOCYTE % 1.3 L MONOCYTE % 6.2 EOSINOPHIL % 0.0 BASOPHIL % 0.1 NEUTROPHIL # 14.63 H LYMPHOCYTE # 0.20 L MONOCYTE # 0.98 H EOSINOPHIL # 0.00 BASOPHIL # 0.02 BASIC METABOLIC PANEL (06/04/24 20:16) SODIUM 148H H POTASSIUM 3.8 CHLORIDE 112H H CARBON DIOXIDE 19L L GLUCOSE 175H H BLOOD UREA NITROGEN 11 GLOMERULAR FILTRATION RATE >=60 max estimate CREATININE 1.20 CALCIUM 8.9 MAG (06/04/24 20:16) MAGNESIUM 2.0 GLU BED (06/04/24 19:04) GLUBED 204 H LACTIC ACID (06/04/24 18:22) LACTIC ACID 9.30 *H COMPREHENSIVE METABOLIC PANEL (06/04/24 18:22) SODIUM 147 H POTASSIUM 4.3 D CHLORIDE 111 H CARBON DIOXIDE 21 GLUCOSE 216 H BLOOD UREA NITROGEN 14 GLOMERULAR FILTRATION RATE >=60 max estimate CREATININE 1.20 TOTAL PROTEIN 5.7 ALBUMIN 3.8 CALCIUM 8.3 L BILIRUBIN TOTAL 0.9 SGOT/AST 78 H SGPT/ALT 19 ALKALINE PHOSPHATASE 31.0 L PTT (06/04/24 18:22) THROMBOPLASTIN TIME PARTIAL 29.8 FIB (06/04/24 18:22) FIBRINOGEN 174 L CBC W/AUTO DIFF (06/04/24 18:22) WHITE BLOOD CELL 16.9H H RED BLOOD CELL 3.29 L HEMOGLOBIN 10.7L L HEMATOCRIT 30.3L L MEAN CELL VOLUME 92.1 MEAN CELL HGB 32.5 H MEAN CELL HGB CONCENTRATION 35.3 RED CELL DISTRIBUTION WIDTH 13.9 PLATELET COUNT 141L L MEAN PLATELET VOLUME 9.4 NEUTROPHIL % 91.3 H LYMPHOCYTE % 1.8 L MONOCYTE % 6.3 EOSINOPHIL % 0.0 BASOPHIL % 0.1 NEUTROPHIL # 15.38 H LYMPHOCYTE # 0.31 L MONOCYTE # 1.07 H EOSINOPHIL # 0.00 BASOPHIL # 0.02 MAG (06/04/24 18:22) MAGNESIUM 2.1 PROTHROMBIN TIME (06/04/24 18:22) PROTHROMBIN TIME PATIENT 13.5 H INTERNATIONAL NORMAL RATIO 1.21 H PHOS (06/04/24 18:22) PHOSPHOROUS 0.8 *L BLOOD GAS W/ELECTROLYTES (06/04/24 18:02) ARTERIAL BLOOD GAS PH 7.30 L ARTERIAL BLOOD GAS PCO2 39.8 ARTERIAL BLOOD GAS PO2 115.0 H BICARBONATE TOTAL HCO3 19.0 L BASE EXCESS -6.9 L ABG O2 SATURATION 97.5 ARTERIAL FIO2 32.0 ABG VENT MODE NASAL CANNULA ALLENS TEST NOT APPLICABLE SODIUM (POC) 143 POTASSIUM (POC) 4.28 CHLORIDE (ARTERIAL) 106 GLUCOSE 233 H IONIZED CALCIUM 1.19 POC LACTIC ACID 8.58 H TOTAL HGB 11.3 L OXYHEMOGLOBIN 96.7 CARBOXYHEMOGLOBIN 0.2 METHEMOGLOBIN <0.8 HHb 2.5 TCO2 ARTERIAL 20.2 L BLOOD GAS W/ELECTROLYTES (06/04/24 15:55) ARTERIAL BLOOD GAS PH 7.39 ARTERIAL BLOOD GAS PCO2 37.5 ARTERIAL BLOOD GAS PO2 145.8 H BICARBONATE TOTAL HCO3 22.4 BASE EXCESS -2.1 L ABG O2 SATURATION 98.4 ARTERIAL FIO2 40.0 ABG VENT MODE Ventilator ALLENS TEST NOT APPLICABLE SODIUM (POC) 141 POTASSIUM (POC) 4.14 CHLORIDE (ARTERIAL) 107 GLUCOSE 260 H IONIZED CALCIUM 1.17 POC LACTIC ACID 6.06 H TOTAL HGB 11.5 L OXYHEMOGLOBIN 97.4 CARBOXYHEMOGLOBIN 0.4 METHEMOGLOBIN <0.8 HHb 1.6 TCO2 ARTERIAL 23.5 L -- ATTESTATION -- TIME SPENT ON PATIENT CARE: - Critical Care: time spent apart from any procedure 43 minutes CARE ACTIVITIES / CARE COORDINATION: - I have reviewed the history and repeated the glass elements - I have seen and examined this patient - I have reviewed the progress in the clinical course since the last examination - I have discussed the patient's condition with other members of the care team Signed in PatientKeeper by Beltran Edwards MD on 06/05/24 at 20:12 at 2012 ATTENTION *EDITS and/or ADDENDA must be made in Patient Keeper for this note. * * Edits and ammendments created in [employer] are not visible * * in Patient Keeper or the legal medical record (HPF). * [facility] #: [id number] END OF REPORT [facility] 2024-06-05 12:22:00 [facility] ([facility]) Cardiology Progress Notes REPORT #: [id number] REPORT STATUS: Signed DATE: 06/05/24 TIME: 1222 PATIENT: KADIE ROCHA UNIT #: [id number] ROOM #: [id number] BED: A : 45 AGE: 78 SEX: M ATTEND: Coby Jain MD ADM AUTHOR: Lyle Bell DO CF1 ATTENTION *EDITS and/or ADDENDA must be made in Patient Keeper for this note. * * Edits and ammendments created in [employer] are not visible * * in Patient Keeper or the legal medical record (HPF). * -- CO-SIGNATURE -- COMMENTS: I have personally seen and examined the patient independently, and reviewed the patient's history, exam, and all cardiac and laboratory data on 06/05/24. I agree with the history, physical, and the assessment and plan as outlined by Lyle Smart, Cardiovascular Fellow. Signed in PatientKeeper by EDI LAI MD on 06/19/24 at 12:20 -- ASSESSMENT AND PLAN -- GENERAL ASSESSMENT: Mr. Rocha is a 78 year old male with no significant PMH who was transferred from LT[facility] after presenting initially to [facility] for evaluation of substernal chest pain that started a few days prior. Pt was found to have elevated troponins with nonspecific EKG changes and then was transferred to [place] and found to have MV CAD. Patient was taken to the [facility] Of District Office and found to have a left main 95% lesion proximal to a PROFESSIONAL NURSING ASSISTANT of the Left circumflex, mid LAD has a 70-80% lesion, RCA has a 90% proximal, 80-90% mid, and 90% distal stenosis. Pt transferred to [facility] for CABG evaluation. On arrival, asymptomatic. VS stable. Labs notable for BNP 314, Hgb 12.8, otherwise grossly unremarkable. Pt being taken for CABG by Dr. Nash PROBLEMS: 1: Multiple vessel coronary artery disease A/P: - LHC at LT[facility] showed left main 95% lesion proximal to a PROFESSIONAL NURSING ASSISTANT of the LCx, mid LAD has a 70-80% lesion, RCA has a 90% proximal, 80-90% mid, and 90% distal stenosis. s/p 3V CABG w/ Dr. Nash on 06/04 (VALDEZ - LAD, SVG - 1st diag, SVG - PDA) - preop LVEF 40 - asa, statin, hold off on beta blockers, continue epi gtt @2 today per CTS - start diuresis, on bumex - dc swan -- SUBJECTIVE -- CHIEF COMPLAINT: no acute events -REVIEW OF SYSTEMS- COMMENT: Negative except as per in HPI. -- OBJECTIVE -- VITALS (06/04 12:22 - 06/05 12:22): Temperature F: 98.1 (96.4 - 98.8) Temperature source: Oral Pulse Rate 63 (61 - 83) Respiratory rate: 19 (14 - 26) Blood pressure: 166/48 (1/1 - 173/69) Blood pressure source: Arterial I/Os (06/04 07:00 - 06/05 07:00): Net 621.10 Intake 2,698.10 Output 2,077 -EXAM- GENERAL: Well developed, well nourished, in no apparent distress. HEAD: Normocephalic, atraumatic. NOSE: No deformity, no discharge, no inflammation, no lesions. MOUTH: Oropharynx without deformities or lesions, normal mucosa.. NECK: No masses, no thyromegaly, no abnormal cervical nodes, trachea midline. CHEST: Grossly normal appearance. LUNGS: Clear bilaterally with normal respiratory effort. HEART: Regular rate and rhythm, normal S1, S2, no murmurs, no rubs, no gallops, no clicks. ABDOMEN: Soft, non-tender, no organomegaly, no masses noted. EXTREMITIES: No clubbing, no cyanosis, no edema. NEUROLOGICAL: Alert and oriented. No focal deficits. PULSES: Pulses normal in all extremities. SKIN: Intact without significant lesions, or rashes. PSYCHIATRIC: Normal mood and affect, intact judgment and insight. -- DATA -- MEDICATIONS ACETAMINOPHEN 1000 MG IV Q6H traMADol HCL 50 MG PO Q6H BUMETANIDE 0.5 MG IV Q12HR HYDROcodone BITARTRATE/APAP 1 TAB PO Q4H PRN SOD BIPHOS/POT PHOSPHATE 2 PKT PO ASDIR (PRN) DEXTROSE 50%-WATER 25 ML IV ASDIR PRN SODIUM CHLORIDE 10 mL 10 ML IV ASDIR CYANOCOBALAMIN 500 MCG PO DAILY ONDANSETRON HCL/PF 4 MG IV Q6H PRN ASPIRIN 81 MG PO DAILY methocarbamoL 750 MG PO Q8H GLUCAGON 1 MG IM ASDIR PRN bisacodyL 10 MG RECTAL ASDIR PRN LACTULOSE 30 ML PO ASDIR PRN DEXTROSE 50%-WATER 25 ML IV ASDIR (PRN) ACETAMINOPHEN 650 MG PO Q4H PRN DEXTROSE 50%-WATER 25 ML IV ASDIR PRN MAGNESIUM 1 GM IV ASDIR PRN SODIUM PHOSPHATE with/in SODIUM CHLORIDE 0.9% 20 MM IV ASDIR (PRN) FERROUS SULFATE 325 MG PO DAILY MUPIROCIN 1 APPLIC NASAL BID polyethylene glycoL 3350 1 PKT PO DAILY SODIUM PHOSPHATE with/in SODIUM CHLORIDE 0.9% 30 MM IV ASDIR (PRN) LACTULOSE 30 ML PO ASDIR PRN HEPARIN/SOD CHLOR 0.45% 69725 UNITS IV TITRATE ACETAMINOPHEN 650 MG PO Q6H ACETAMINOPHEN 650 MG RECTAL Q4H PRN HEPARIN SODIUM,PORCINE 5000 UNIT IV ASDIR (PRN) SODIUM BICARBONATE 8.4% 50 MEQ IV ASDIR PRN DOCUSATE SODIUM 200 MG PO DAILY NOREPINEPHRINE BITARTRATE 4 MG IV TITRATE POTASSIUM CHLORIDE 20 MEQ IV ASDIR (PRN) INSULIN LISPRO 0 UNITS SUBQ C MEALS HS MAGNESIUM HYDROXIDE 30 ML PO ASDIR PRN niCARdipine HCL with/in SODIUM CHLORIDE 100 mL BAG 25 MG IV TITRATE EPINEPHrine HCL/D5W 4 MG IV ASDIR POTASSIUM CHLORIDE 20 MEQ PO ASDIR (PRN) CALCIUM GLUC IN NACL, ISO-OSM 2 GM IV ASDIR PRN HEPARIN SODIUM,PORCINE 2500 UNIT IV ASDIR (PRN) LABS GLU BED (06/05/24 09:34) GLUBED 147 H GLU BED (06/05/24 06:16) GLUBED 89 GLU BED (06/05/24 05:15) GLUBED 103 GLU BED (06/05/24 04:06) GLUBED 122 H VENOUS BLOOD GAS (06/05/24 03:32) VENOUS BLOOD GAS PH 7.35 VENOUS BLOOD GAS PCO2 44.4 VENOUS BLOOD GAS PO2 34.1 VBG HCO3 24 VBG BASE EXCESS -1.9 VENOUS BLOOD GAS O2 SAT 73 VENOUS BLOOD GAS TYPE Venous VENOUS BLOOD GAS FIO2 28.0 VBG VENT MODE NC LACTIC ACID (06/05/24 03:11) LACTIC ACID 1.30 LIVER FUNCTION PANEL (06/05/24 03:11) TOTAL PROTEIN 5.3 L ALBUMIN 3.4 BILIRUBIN TOTAL 0.5 BILIRUBIN DIRECT 0.2 SGOT/AST 71 H SGPT/ALT 16 ALKALINE PHOSPHATASE 27.0 L PHOS (06/05/24 03:11) PHOSPHOROUS 4.0 D MAG (06/05/24 03:11) MAGNESIUM 2.0 PTT (06/05/24 03:11) THROMBOPLASTIN TIME PARTIAL 29.1 FIB (06/05/24 03:11) FIBRINOGEN 189 L BASIC METABOLIC PANEL (06/05/24 03:11) SODIUM 144 POTASSIUM 4.4 CHLORIDE 114H H CARBON DIOXIDE 22 GLUCOSE 125H H BLOOD UREA NITROGEN 10 GLOMERULAR FILTRATION RATE >=60 max estimate CREATININE 1.00 CALCIUM 9.4 PROTHROMBIN TIME (06/05/24 03:11) PROTHROMBIN TIME PATIENT 13.1 H INTERNATIONAL NORMAL RATIO 1.17 H CBC W/AUTO DIFF (06/05/24 03:11) WHITE BLOOD CELL 14.8H H RED BLOOD CELL 2.86 L HEMOGLOBIN 9.3L L HEMATOCRIT 26.4L L MEAN CELL VOLUME 92.3 MEAN CELL HGB 32.5 H MEAN CELL HGB CONCENTRATION 35.2 RED CELL DISTRIBUTION WIDTH 14.0 PLATELET COUNT 118L L MEAN PLATELET VOLUME 10.1 NEUTROPHIL % 88.7 H LYMPHOCYTE % 2.3 L MONOCYTE % 8.4 EOSINOPHIL % 0.0 BASOPHIL % 0.1 NEUTROPHIL # 13.15 H LYMPHOCYTE # 0.34 L MONOCYTE # 1.25 H EOSINOPHIL # 0.00 BASOPHIL # 0.01 BLOOD GAS W/ELECTROLYTES (06/05/24 03:08) ARTERIAL BLOOD GAS PH 7.37 ARTERIAL BLOOD GAS PCO2 39.9 ARTERIAL BLOOD GAS PO2 107.6 H BICARBONATE TOTAL HCO3 22.5 BASE EXCESS -2.5 L ABG O2 SATURATION 97.8 ARTERIAL FIO2 32.0 ABG VENT MODE NASAL CANNULA ALLENS TEST No SODIUM (POC) 140 POTASSIUM (POC) 4.31 CHLORIDE (ARTERIAL) 107 GLUCOSE 131 H IONIZED CALCIUM 1.26 POC LACTIC ACID 1.56 TOTAL HGB 10.0 L OXYHEMOGLOBIN 97.2 CARBOXYHEMOGLOBIN 0.3 METHEMOGLOBIN <0.8 HHb 2.2 TCO2 ARTERIAL 23.8 L GLU BED (06/05/24 02:14) GLUBED 134 H GLU BED (06/05/24 01:05) GLUBED 93 BLOOD GAS W/ELECTROLYTES (06/05/24 00:01) ARTERIAL BLOOD GAS PH 7.38 ARTERIAL BLOOD GAS PCO2 35.7 ARTERIAL BLOOD GAS PO2 117.8 H BICARBONATE TOTAL HCO3 20.8 L BASE EXCESS -3.8 L ABG O2 SATURATION 97.8 ARTERIAL FIO2 32.0 ABG VENT MODE NASAL CANNULA ALLENS TEST No SODIUM (POC) 141 POTASSIUM (POC) 4.02 CHLORIDE (ARTERIAL) 108 GLUCOSE 111 H IONIZED CALCIUM 1.17 POC LACTIC ACID 3.61 H TOTAL HGB 10.3 D L OXYHEMOGLOBIN 97.0 CARBOXYHEMOGLOBIN 0.3 METHEMOGLOBIN <0.8 HHb 2.2 TCO2 ARTERIAL 21.9 L GLU BED (06/04/24 23:11) GLUBED 127 H GLU BED (06/04/24 22:10) GLUBED 155 H GLU BED (06/04/24 21:07) GLUBED 174 H BLOOD GAS W/ELECTROLYTES (06/04/24 20:17) ARTERIAL BLOOD GAS PH 7.32 L ARTERIAL BLOOD GAS PCO2 35.0 ARTERIAL BLOOD GAS PO2 87.3 BICARBONATE TOTAL HCO3 17.5 L BASE EXCESS -7.8 L ABG O2 SATURATION 97.0 ARTERIAL FIO2 32.0 ABG VENT MODE NASAL CANNULA ALLENS TEST No SODIUM (POC) 143 POTASSIUM (POC) 3.76 CHLORIDE (ARTERIAL) 109 H GLUCOSE 185 H IONIZED CALCIUM 1.24 POC LACTIC ACID 8.02 H TOTAL HGB 11.2 L OXYHEMOGLOBIN 95.7 CARBOXYHEMOGLOBIN 0.8 METHEMOGLOBIN <0.8 HHb 3.0 TCO2 ARTERIAL 18.6 L CBC W/AUTO DIFF (06/04/24 20:16) WHITE BLOOD CELL 15.9H H RED BLOOD CELL 3.20 L HEMOGLOBIN 10.5L L HEMATOCRIT 29.0L L MEAN CELL VOLUME 90.6 MEAN CELL HGB 32.8 H MEAN CELL HGB CONCENTRATION 36.2 RED CELL DISTRIBUTION WIDTH 13.9 PLATELET COUNT 139L L MEAN PLATELET VOLUME 9.8 NEUTROPHIL % 92.0 H LYMPHOCYTE % 1.3 L MONOCYTE % 6.2 EOSINOPHIL % 0.0 BASOPHIL % 0.1 NEUTROPHIL # 14.63 H LYMPHOCYTE # 0.20 L MONOCYTE # 0.98 H EOSINOPHIL # 0.00 BASOPHIL # 0.02 BASIC METABOLIC PANEL (06/04/24 20:16) SODIUM 148H H POTASSIUM 3.8 CHLORIDE 112H H CARBON DIOXIDE 19L L GLUCOSE 175H H BLOOD UREA NITROGEN 11 GLOMERULAR FILTRATION RATE >=60 max estimate CREATININE 1.20 CALCIUM 8.9 MAG (06/04/24 20:16) MAGNESIUM 2.0 GLU BED (06/04/24 19:04) GLUBED 204 H LACTIC ACID (06/04/24 18:22) LACTIC ACID 9.30 *H COMPREHENSIVE METABOLIC PANEL (06/04/24 18:22) SODIUM 147 H POTASSIUM 4.3 D CHLORIDE 111 H CARBON DIOXIDE 21 GLUCOSE 216 H BLOOD UREA NITROGEN 14 GLOMERULAR FILTRATION RATE >=60 max estimate CREATININE 1.20 TOTAL PROTEIN 5.7 ALBUMIN 3.8 CALCIUM 8.3 L BILIRUBIN TOTAL 0.9 SGOT/AST 78 H SGPT/ALT 19 ALKALINE PHOSPHATASE 31.0 L PTT (06/04/24 18:22) THROMBOPLASTIN TIME PARTIAL 29.8 FIB (06/04/24 18:22) FIBRINOGEN 174 L CBC W/AUTO DIFF (06/04/24 18:22) WHITE BLOOD CELL 16.9H H RED BLOOD CELL 3.29 L HEMOGLOBIN 10.7L L HEMATOCRIT 30.3L L MEAN CELL VOLUME 92.1 MEAN CELL HGB 32.5 H MEAN CELL HGB CONCENTRATION 35.3 RED CELL DISTRIBUTION WIDTH 13.9 PLATELET COUNT 141L L MEAN PLATELET VOLUME 9.4 NEUTROPHIL % 91.3 H LYMPHOCYTE % 1.8 L MONOCYTE % 6.3 EOSINOPHIL % 0.0 BASOPHIL % 0.1 NEUTROPHIL # 15.38 H LYMPHOCYTE # 0.31 L MONOCYTE # 1.07 H EOSINOPHIL # 0.00 BASOPHIL # 0.02 MAG (06/04/24 18:22) MAGNESIUM 2.1 PROTHROMBIN TIME (06/04/24 18:22) PROTHROMBIN TIME PATIENT 13.5 H INTERNATIONAL NORMAL RATIO 1.21 H PHOS (06/04/24 18:22) PHOSPHOROUS 0.8 *L BLOOD GAS W/ELECTROLYTES (06/04/24 18:02) ARTERIAL BLOOD GAS PH 7.30 L ARTERIAL BLOOD GAS PCO2 39.8 ARTERIAL BLOOD GAS PO2 115.0 H BICARBONATE TOTAL HCO3 19.0 L BASE EXCESS -6.9 L ABG O2 SATURATION 97.5 ARTERIAL FIO2 32.0 ABG VENT MODE NASAL CANNULA ALLENS TEST NOT APPLICABLE SODIUM (POC) 143 POTASSIUM (POC) 4.28 CHLORIDE (ARTERIAL) 106 GLUCOSE 233 H IONIZED CALCIUM 1.19 POC LACTIC ACID 8.58 H TOTAL HGB 11.3 L OXYHEMOGLOBIN 96.7 CARBOXYHEMOGLOBIN 0.2 METHEMOGLOBIN <0.8 HHb 2.5 TCO2 ARTERIAL 20.2 L BLOOD GAS W/ELECTROLYTES (06/04/24 15:55) ARTERIAL BLOOD GAS PH 7.39 ARTERIAL BLOOD GAS PCO2 37.5 ARTERIAL BLOOD GAS PO2 145.8 H BICARBONATE TOTAL HCO3 22.4 BASE EXCESS -2.1 L ABG O2 SATURATION 98.4 ARTERIAL FIO2 40.0 ABG VENT MODE Ventilator ALLENS TEST NOT APPLICABLE SODIUM (POC) 141 POTASSIUM (POC) 4.14 CHLORIDE (ARTERIAL) 107 GLUCOSE 260 H IONIZED CALCIUM 1.17 POC LACTIC ACID 6.06 H TOTAL HGB 11.5 L OXYHEMOGLOBIN 97.4 CARBOXYHEMOGLOBIN 0.4 METHEMOGLOBIN <0.8 HHb 1.6 TCO2 ARTERIAL 23.5 L BLOOD GAS W/ELECTROLYTES (06/04/24 15:03) ARTERIAL BLOOD GAS PH 7.39 ARTERIAL BLOOD GAS PCO2 37.2 ARTERIAL BLOOD GAS PO2 113.3 H BICARBONATE TOTAL HCO3 22.0 BASE EXCESS -2.6 L ABG O2 SATURATION 97.8 ARTERIAL FIO2 40.0 ABG VENT MODE NASAL CANNULA ALLENS TEST NOT APPLICABLE SODIUM (POC) 142 POTASSIUM (POC) 3.72 CHLORIDE (ARTERIAL) 106 GLUCOSE 248 H IONIZED CALCIUM 1.18 POC LACTIC ACID 5.25 H TOTAL HGB 11.5 L OXYHEMOGLOBIN 97.1 CARBOXYHEMOGLOBIN 0.2 METHEMOGLOBIN <0.8 HHb 2.2 TCO2 ARTERIAL 23.1 L BLOOD GAS W/ELECTROLYTES (06/04/24 13:30) ARTERIAL BLOOD GAS PH 7.32 L ARTERIAL BLOOD GAS PCO2 39.4 ARTERIAL BLOOD GAS PO2 143.2 H BICARBONATE TOTAL HCO3 19.8 L BASE EXCESS -5.8 L ABG O2 SATURATION 98.1 ARTERIAL FIO2 50.0 ABG VENT MODE Ventilator ALLENS TEST NOT APPLICABLE SODIUM (POC) 143 POTASSIUM (POC) 3.41 L CHLORIDE (ARTERIAL) 106 GLUCOSE 238 H IONIZED CALCIUM 1.28 POC LACTIC ACID 5.02 H TOTAL HGB 11.8 D L OXYHEMOGLOBIN 97.5 CARBOXYHEMOGLOBIN 0.1 METHEMOGLOBIN <0.8 HHb 1.9 TCO2 ARTERIAL 21.1 L BASIC METABOLIC PANEL (06/04/24 12:39) SODIUM 144 POTASSIUM 3.2D L D L CHLORIDE 109H H CARBON DIOXIDE 20 GLUCOSE 212H H BLOOD UREA NITROGEN 10 GLOMERULAR FILTRATION RATE >=60 max estimate CREATININE 1.00 CALCIUM 8.1 L MAG (06/04/24 12:39) MAGNESIUM 3.0 H CBC W/AUTO DIFF (06/04/24 12:39) WHITE BLOOD CELL 20.8H H RED BLOOD CELL 3.27 L HEMOGLOBIN 10.5D L D L HEMATOCRIT 30.1L L MEAN CELL VOLUME 92.0 MEAN CELL HGB 32.1 H MEAN CELL HGB CONCENTRATION 34.9 RED CELL DISTRIBUTION WIDTH 13.8 PLATELET COUNT 131L L MEAN PLATELET VOLUME 9.9 NEUTROPHIL % 80.8 H LYMPHOCYTE % 12.6 L MONOCYTE % 5.0 EOSINOPHIL % 0.7 BASOPHIL % 0.2 NEUTROPHIL # 16.82 H LYMPHOCYTE # 2.63 MONOCYTE # 1.04 H EOSINOPHIL # 0.14 BASOPHIL # 0.05 PHOS (06/04/24 12:39) PHOSPHOROUS 1.7 D L PTT (06/04/24 12:39) THROMBOPLASTIN TIME PARTIAL 27.5 LACTIC ACID (06/04/24 12:39) LACTIC ACID 5.00 *H PROTHROMBIN TIME (06/04/24 12:39) PROTHROMBIN TIME PATIENT 16.7 H INTERNATIONAL NORMAL RATIO 1.50 D H VENOUS BLOOD GAS (06/04/24 12:34) VENOUS BLOOD GAS PH 7.34 L VENOUS BLOOD GAS PCO2 59.0 VENOUS BLOOD GAS PO2 39.5 VBG HCO3 31 VBG BASE EXCESS 4.0 VENOUS BLOOD GAS O2 SAT 77 VENOUS BLOOD GAS TYPE Venous VENOUS BLOOD GAS FIO2 50.0 VBG VENT MODE Ventilator Signed in PatientKeeper by Lyle Bell on 06/05/24 at 12:27 Cosigned by EDI LAI MD on 06/19/24 at 12:20 at 1220 at 1220 ATTENTION *EDITS and/or ADDENDA must be made in Patient Keeper for this note. * * Edits and ammendments created in [employer] are not visible * * in Patient Keeper or the legal medical record ([facility]). * [facility] #: [id number] END OF REPORT [facility] 2024-06-05 05:35:00 [id number] [address] PATIENT NAME: KADIE ROCHA ADMIT DATE: 06/03/24 ACCOUNT NO: [id number] ROOM NO: [id number] AGE: 78 REPORT TYPE: eELECTROCARDIOGRAM SEX: M ADMITTING PHYSICIAN: Coby Jain MD ATTENDING PHYSICIAN: Coby Jain MD Order: [id number] Test Reason : Cardiac Surgery Postop Test Date/Time Stamp: [facility] Jun 05 2024 05:35:56 Blood Pressure : / mmHG Vent. Rate : 070 BPM Atrial Rate : 070 BPM P-R Int : 158 ms QRS Dur : 080 ms QT Int : 380 ms P-R-T Axes : 062 009 050 degrees QTc Int : 410 ms Normal sinus rhythm Nonspecific T wave abnormality Confirmed by fellow Olga Mayen ([id number]) on 06/08/2024 12:01:53 PM Confirmed by YUMI LAI ([id number]) on 06/09/2024 9:24:36 AM Referred By: Self Referred Confirmed by:YUMI LAI at 0924 PATIENT NAME: KADIE ROCHA [facility] 2024-06-04 16:56:00 [facility] ([facility]) Intensive Care Progress Note REPORT #: [id number] REPORT STATUS: Signed DATE: 06/04/24 TIME: 1655 PATIENT: KADIE ROCHA UNIT #: [id number] ROOM #: [facility] BED: 1 : 45 AGE: 78 SEX: M ATTEND: Coby Jain MD ADM AUTHOR: Coby Jain MD ATTENTION *EDITS and/or ADDENDA must be made in Patient Keeper for this note. * * Edits and ammendments created in [facility] are not visible * * in Patient Keeper or the legal medical record ([facility]). * -- ASSESSMENT AND PLAN -- HOSPITAL COURSE TO DATE: 70-year-old male with no significant history presented to [facility] initially for evaluation for probable NSTEMI. Patient was sent to [facility] where he was evaluated. He was transferred for further surgical resolution to [facility]. Patient states that couple days ago started having some midepigastric abdominal discomfort complained on and off no related to activity it persisted and became more intense after eating a meal that did not go away. No fever chills no nausea or vomiting. Evaluated at [facility] found to have an elevated troponin with unspecified EKG changes. With this patient was transferred to [place]. In [place] patient was admitted to the hospital service for evaluation of chest pain. Started on heparin drip and given aspirin. Cardiology was consulted. Lab work did show an elevated BNP at 1824. Patient was taken to the [facility] underwent cardiac catheterization. Found to have a left main 95% lesion proximal to the the circumflex which is occluded. The LAD mid has 70 to 80% lesion. The right has a 90% proximal 8090% mid and 90% distal patient was transferred to [facility] for surgical resolution 06/03 Patient seen and evaluated on arrival awake and alert no complaints of pain no shortness of breath no chest pain. Alert and interactive Hx Obtained From Patient, Prior medical records History Past medical history: Denied: Alcoholism/subst abuse, Anemia, Arthritis, Atrial fibrillation, Congestive heart failure, Dementia, GERD/gastritis, Transient ischemic attack. 06/04: CABG x3 VALDEZ-LAD, rSVG-mid LAD, rSVG-PDA 06/04: Extubated to 3 L NC GENERAL ASSESSMENT: Assessment and Plan Pt is admitted post-op CABG x3 by Dr. Nash. Neuro ICU Analgesia/Sedation - Tramadol, Tylenol for pain CV Cardiogenic Shock CAD s/p CABGx3 Ischemic Cardiomyopathy - Return from OR on Epi 6, Levo 3; since Levo is off and Epi currently at 3 mcg, no plans to wean below - EF 40% - Sinus rhythm in 80s - Pacer wires present, not pacing - CTs Mid, LP, RP Resp Acute Respiratory Insufficiency - Return from OR on SIMU 14/10/5/500/80%, since patient is extubated to 3 L NC - Starting IS - Serially assess ABGs GI - Past bedside swallow test - Can advance to clear liquid diet Renal Lactic Acidosis - Elevated lactic, trending - Segura 50-60ml/hr - Reassess electrolytes, replaced as ordered - Will follow BUN/Cr/UOP Heme - CBC, Coags sent ID - No concerns for sepsis - Post-op Abx continued Endo Hyperglycemia - Hypoglyemia protocol - Started Insulin gtt - Will cover with Insulin SS once under control Prophylaxis - SCD - PPI/H2 Advanced Care Planning: Code: Full MPOA: Advanced Care Plan: Yes Medications reviewed with the clinical pharmacist Coby Jain MD Critical Care Medicine -- SUBJECTIVE -- PATIENT NARRATIVE: Patient went for a CABGx3 today (Dr. Nash), came out with a little pressor support but weaning down. Came out with MV but since wean to NC. Patient is awake, alert and in good spirits. Pain is minimal at this and family at bedside. -- OBJECTIVE -- VITALS (06/03 16:57 - 06/04 16:57): Temperature F: 98.4 (98.1 - 98.4) Temperature source: Axillary Pulse Rate 72 (51 - 72) Respiratory rate: 20 (12 - 34) Blood pressure: 127/48 (106/47 - 169/76) Blood pressure source: Monitor I/Os (06/03 07:00 - 06/04 07:00): Net -802.00 Intake 198.00 Output 1,000 -- ATTESTATION -- TIME SPENT ON PATIENT CARE: - Critical Care: time spent apart from any procedure 80 minutes CARE ACTIVITIES / CARE COORDINATION: - I have reviewed the history and repeated the glass elements - I have seen and examined this patient - I have reviewed the progress in the clinical course since the last examination - I have discussed the patient's condition with other members of the care team Signed in PatientKeeper by Coby Jain MD on 06/04/24 at 17:55 at 1755 ATTENTION *EDITS and/or ADDENDA must be made in Patient Keeper for this note. * * Edits and ammendments created in [employer] are not visible * * in Patient Keeper or the legal medical record (HPF). * [facility] #: [id number] END OF REPORT [facility] 2024-06-04 16:45:00 [id number] [address] PATIENT NAME: KADIE ROCHA ADMIT DATE: 06/03/24 ACCOUNT NO: [id number] ROOM NO: P.0418 AGE: 78 REPORT TYPE: eELECTROCARDIOGRAM SEX: M ADMITTING PHYSICIAN: Coby Jain MD ATTENDING PHYSICIAN: Coby Jain MD Order: [id number] Test Reason : postop Test Date/Time Stamp: FriJun 04 2024 16:45:28 Blood Pressure : / mmHG Vent. Rate : 076 BPM Atrial Rate : 076 BPM P-R Int : 166 ms QRS Dur : 092 ms QT Int : 394 ms P-R-T Axes : 058 -12 054 degrees QTc Int : 443 ms Normal sinus rhythm Nonspecific T wave abnormality Confirmed by fellow Olga Mayen ([id number]) on 06/08/2024 12:00:23 PM Confirmed by YUMI LAI ([id number]) on 06/09/2024 9:25:02 AM Referred By: Self Referred Confirmed by:YUMI LAI at 0925 PATIENT NAME: KADIE ROCHA [facility] 2024-06-04 14:11:00 [facility] ([facility]) Operative Report REPORT #: [id number] REPORT STATUS: Signed DATE: 06/04/24 TIME: 1410 PATIENT: KADIE ROCHA UNIT #: [id number] ROOM #: P.0321 BED: 1 : 45 AGE: 78 SEX: M ATTEND: Coby Jain MD [facility] AUTHOR: Edmund Nash MD ATTENTION *EDITS and/or ADDENDA must be made in Patient Keeper for this note. * * Edits and ammendments created in [facility] are not visible * * in Patient Keeper or the legal medical record (HPF). * -- OPERATION -- SURGERY START DATE/TIME: 2024-06-04 08:30 PRE-OPERATIVE DIAGNOSIS: See Full Summary POST-OPERATIVE DIAGNOSIS: See Full Summary INDICATION(S): See Full Summary NAME OF PROCEDURE: See Full Summary TIME OUT COMPLETED: Yes SURGEON: EDMUND NASH MD EYELET PUNCH OPERATOR(S): See Full Summary ANESTHESIA: See Full Summary ESTIMATED BLOOD LOSS: 500 ml's FINDINGS: See Full Summary SPECIMEN(S) REMOVED AND/OR ALTERED: See Full Summary COMPLICATION(S): See Full Summary -- DESCRIPTION -- DESCRIPTION OF TECHNIQUE/PROCEDURE: SURGEON 1ST EYELET PUNCH OPERATOR DATE OFOPERATION Brett Laird P.A. 06/04/2024 PREOPERATIVE DIAGNOSIS: 1. Unstable angina 2. Acute Non-ST elevation myocardial infarction 3. Critical left main and multivessel coronary artery disease 4. Mild moderate left ventricular dysfunction (LVEF 40%) 5. Mild moderate MR POSTOPERATIVE DIAGNOSIS: Same OPERATION: 1. Urgent CABG X 3 using cardiopulmonary bypass Left internal mammary artery bypass to the left anterior descending coronary artery Reversed saphenous vein graft to the first diagonal coronary artery Reversed saphenous vein graft to the posterior descending coronary artery 2. Cold Del-Nido cardioplegic arrest 3. Endoscopic vein harvesting (Micheal Hutchison PA-C) 4. Insertion of temporary epicardial pacing wires AORTIC CLAMP TIME: 61 minutes TOTAL PUMP TIME: 73 minutes LOWEST NASOPHARYNGEAL TEMP: 34.1 C LOWEST BLADDER TEMP: 34.6 C BLOOD REQUIREMENTS: None (2 units of Cell Saver) PROCEDURE: Mr. Rocha is a most pleasant 78-year-old gentleman with no significant past medical history. He was transferred to [facility] after presenting initially to [facility] complaining of substernal chest pain. As cardiac enzymes were elevated in the presence of nonspecific EKG changes, Mr. Rocha was taken emergently to the [facility]. He was found to have critical (95%) left main disease as well as multivessel coronary artery disease including PROFESSIONAL NURSING ASSISTANT of the LCx. Echocardiogram demonstrated moderate LV dysfunction with mild moderate MR. Due to the above findings, the patient was transferred to [facility] and was admitted to the CVICU in preparation for an urgent coronary artery bypass grafting surgery. The indication for surgery as well as the risks and benefits were explained in detail to the patient and his family, and informed consent was obtained. The patient was transferred from the CVICU to the operating room, placed in the supine position and administered satisfactory general endotracheal anesthesia. A time-out procedure was performed, confirming the patient's name, MRN, and procedure to be performed. Transesophageal echocardiogram demonstrated mild moderate left ventricular dysfunction with LVEF 40%. In addition, there was evidence for mild+ mitral regurgitation. These findings were in correlation with preoperative transthoracic echocardiogram. At that point cardiological/surgical consultation took place, and a decision was made not to address the mitral valve at the time of surgery. Of note, after intubation the patient was hypotensive requiring vasopressor support to maintain adequate blood pressure. Next, the chest, abdomen and legs were prepped and draped in the usual sterile manner. The chest was entered through a median sternotomy, and the left pleura was entered. The left internal mammary artery was dissected in a skeletonized fashion by using the cautery starting from the 6th intercostal space going proximally to the first rib. The branches were ligated with hemoclips and divided. The artery was found to be of normal diameter and demonstrated good flow. Then, the left internal mammary artery was placed and soaked with Papaverine solution. Simultaneously, the greater saphenous vein was endoscopically harvested from the right thigh (AMBROCIO Moreno). The vein was of normal diameter and good quality. Next, the pericardium was opened longitudinally. The heart demonstrated moderate global dysfunction. The aorta was of normal diameter. The patient was anti-coagulated with sodium heparin, and the heart was cannulated for cardiopulmonary bypass with placement of a 21Fr arterial cannula in the distal ascending aorta and a dual stage cannula in the right atrium. Cardiopulmonary bypass was established, and the patient was allowed to drift to the above stated temperature. An antegrade cardioplegia cannula was inserted into the ascending aorta and secured. A retrograde cardioplegia cannula was inserted into the coronary sinus via the right atrium, following which the ascending aorta was cross-clamped. Cold Del-Nido cardioplegic solution was instilled into the ascending aorta establishing a diastolic arrest. This was supplemented with retrograde cardioplegia and keeping the heart isoelectric. At that point, the posterolateral wall was evaluated. As was demonstrated on the left heart catheterization, the obtuse marginal coronary arteries were very small and not suitable for bypass. Attention was then given to the inferior wall. The right posterior descending coronary artery was identified and opened longitudinally. The vessel was noted to be very small yet suitable for bypass admitting a 1.0 mm dilator. A saphenous vein segment was then fashioned end-to-side to the arteriotomy made in this vessel, and the anastomosis was completed using a running # 7/0 Prolene suture. Next, at attention was turned to the anterolateral wall. The first diagonal coronary artery was identified and opened longitudinally. The vessel was found to be small, yet suitable for bypass admitting a 1.0mm dilator. A second saphenous vein segment was then fashioned end-to-side to the arteriotomy made in this vessel, and the anastomosis was completed using a running # 7/0 Prolene suture. Following the completion of this anastomosis, the left anterior descending coronary artery was identified. The vessel was noted to be diffusely diseased. It was opened at its distal third with evidence for a large posterior plaque, yet, suitable for bypass admitting a 1.0 mm dilator. The left internal mammary artery was then fashioned end-to side to the arteriotomy made in the left anterior descending coronary artery, and the anastomosis was completed using a running # 8/0 Prolene suture. Two small aortotomies were made in the ascending aorta, to which the saphenous vein grafts to the first diagonal and posterior descending coronary arteries were sutured in an end-to-side fashion using running # 6/0 Prolene sutures. The heart chambers were filled with blood. Any potential air was evacuated via the antegrade aortic cardioplegia cannula. The patient was placed in the head-down position and the aortic cross-clamp released. Temporary bipolar epicardial pacemaker wires were placed on the right ventricular outflow tract, and the patient was paced. Pacing was discontinued once the patient regained normal sinus rhythm. Rewarming continued to a nasopharyngeal and bladder temperature of 36.0 C. After demonstrating satisfactory hemodynamics, the patient was weaned from cardiopulmonary bypass under mild inotropic support. Flow was assessed in all bypass grafts and was found to be excellent with low PI. Transesophageal echocardiogram demonstrated improvement in the left ventricular systolic function with no new wall-motion abnormalities. The aortic and vena caval cannulae were removed. Protamine sulfate was administered to reverse the anti-coagulated state. One # 36 chest tube was placed in the mediastinum, and two # 28 right angle chest tubes were placed in the right and left pleural spaces for drainage. The chest was closed with interrupted # 6 stainless steel surgical wires on the sternum, running #l Vicryl Plus on the muscular fascia and running # 3/0 Monocryl suture for the skin. The patient tolerated the procedure well and was taken to the ICU in stable condition. Sponge, needle and instrument x4 were correct. I was present as surgeon for all elements of this operation that included opening the chest, harvesting the left internal mammary artery, establishing cardiopulmonary bypass and performing all distal and proximal anastomoses of the coronary arteries, including the left internal mammary artery to the left anterior descending coronary artery. I weaned the patient from cardiopulmonary bypass and closed the incision. Due to the complexity of this surgery, a director medical surgical was necessary. Micheal Hutchison PA-C was present and scrubbed for the entirety of the case. Micheal was essential for the proper positioning, manipulation of instruments, maintenance/exposure of a clear surgical field. He endoscopically harvested the greater saphenous vein, helped initiating/weaning from cardiopulmonary bypass and assisted in the completion of all anastomoses as described above. This operation could not have been safely performed (without compromising the technical results or length of the procedure) without the assistance of a skilled surgical services manager. Edmund Nash M.D. Signed in PatientKeeper by EDMUND NASH MD on 06/04/24 at 14:17 at 1417 ATTENTION *EDITS and/or ADDENDA must be made in Patient Keeper for this note. * * Edits and ammendments created in [employer] are not visible * * in Patient Keeper or the legal medical record (HPF). * RPT #: [id number] END OF REPORT [facility] 2024-06-04 11:55:00 [facility] ([facility]) Brief Operative Report REPORT #: [id number] REPORT STATUS: Signed DATE: 06/04/24 TIME: 1155 PATIENT: KADIE ROCHA UNIT #: [id number] ROOM #: P.0321 BED: 1 : 45 AGE: 78 SEX: M ATTEND: Coby Jain MD ADM AUTHOR: Micheal Hutchison PA ATTENTION *EDITS and/or ADDENDA must be made in Patient Keeper for this note. * * Edits and ammendments created in [employer] are not visible * * in Patient Keeper or the legal medical record ([facility]). * -- BRIEF OP NOTE -- PRE-OPERATIVE DIAGNOSIS: Severe multivessel CAD critical LM stenosis systolic dysfunction Mitral valve insufficiency Tricuspid insufficiency GERD A-Fib Dementia h/o ETOH/Drug use POST-OPERATIVE DIAGNOSIS: same NAME OF PROCEDURE: CABG x 3 VALDEZ--> LAD SVG--> RCApd SVR--> DIAG EVH right LE TPW SURGEON: EDMUND NASH MD EYELET PUNCH OPERATOR(S): Micheal ALBRECHT FINDINGS: CAD ESTIMATED BLOOD LOSS (ML'S): 700 SPECIMEN(S) REMOVED AND/OR ALTERED: SVG right lower ext COMPLICATION(S): none DRAIN(S): Right pleural Left pleural Dale mediastinal ADDITIONAL COMMENTS: 2 Cell saver no blood Epi/Levo gtt to the ICU Signed in PatientKeeper by Micheal Hutchison on 06/04/24 at 12:01 at 1201 ATTENTION *EDITS and/or ADDENDA must be made in Patient Keeper for this note. * * Edits and ammendments created in [employer] are not visible * * in Patient Keeper or the legal medical record ([facility]). * [facility] #: [id number] END OF REPORT [facility] 2024-06-04 09:18:00 [facility] ([facility]) Progress Note REPORT #: [id number] REPORT STATUS: Signed DATE: 06/04/24 TIME: 917 PATIENT: KADIE ROCHA UNIT #: [id number] ROOM #: [facility] BED: 1 : 45 AGE: 78 SEX: M ATTEND: Coby Jain MD ADM AUTHOR: Ranjit Sarmiento MD ATTENTION *EDITS and/or ADDENDA must be made in Patient Keeper for this note. * * Edits and ammendments created in [employer] are not visible * * in Patient Keeper or the legal medical record (HPF). * -- ASSESSMENT AND PLAN -- PROBLEMS: 1: CAD (coronary artery disease) A/P: Undergoing CABG on 06/04/24 - Monitor patient for any bleeding episodes. - Monitor chest tube output/color. - Monitor urine output volume/color. - Check CBC, PTT, INR, and Fibrinogen daily. - Follow up with Cardiac surgery recs. - Encourage rehab/ambulation as tolerated. Follow up with PT/OT recs. ADDITIONAL COMMENTS: This is my first clinical note for this patient. Thank you for the consult. -- SUBJECTIVE -- HPI: Undergoing CABG today. NPO. Intubated. Segura in place. Platelets normal, hemoglobin normal. -REVIEW OF SYSTEMS- COMMENT: Unable to answer questions. Patient intubated. -- OBJECTIVE -- VITALS (06/03 09:18 - 06/04 09:18): Temperature F: 98.4 (98.1 - 98.4) Temperature source: Axillary Pulse Rate 55 (51 - 65) Respiratory rate: 17 (12 - 34) Blood pressure: 140/64 (106/58 - 169/76) Blood pressure source: Monitor I/Os (06/03 07:00 - 06/04 07:00): Net -802.00 Intake 198.00 Output 1,000 -EXAM- GENERAL: Well developed, well nourished, in no apparent distress. HEAD: Normocephalic, atraumatic. NECK: No masses, no thyromegaly, no abnormal cervical nodes, trachea midline. CHEST: Grossly normal appearance. LUNGS: Clear bilaterally with normal respiratory effort. HEART: Regular rate and rhythm, normal S1, S2, no murmurs, no rubs, no gallops, no clicks. ABDOMEN: Soft, non-tender, no organomegaly, no masses noted. EXTREMITIES: No clubbing, no cyanosis, no edema. -- DATA -- MEDICATIONS HEPARIN/SOD CHLOR 0.45% 99502 UNITS IV TITRATE HEPARIN SODIUM,PORCINE 5000 UNIT IV ASDIR (PRN) DEXTROSE 50%-WATER 25 ML IV ASDIR (PRN) polyethylene glycoL 3350 1 PKT PO DAILY bisacodyL 10 MG RECTAL DAILY PRN GLUCAGON 1 MG IM ASDIR (PRN) ACETAMINOPHEN 650 MG PO Q6H PRN DOCUSATE SODIUM 200 MG PO DAILY HEPARIN SODIUM,PORCINE 2500 UNIT IV ASDIR (PRN) MUPIROCIN 1 APPLIC NASAL BID LABS MAG (06/04/24 03:17) MAGNESIUM 2.1 COMPREHENSIVE METABOLIC PANEL (06/04/24 03:17) SODIUM 141 POTASSIUM 4.5 CHLORIDE 107 CARBON DIOXIDE 28 GLUCOSE 97 BLOOD UREA NITROGEN 9 GLOMERULAR FILTRATION RATE >=60 max estimate CREATININE 0.90 TOTAL PROTEIN 6.4 ALBUMIN 3.9 CALCIUM 8.5 L BILIRUBIN TOTAL 0.7 SGOT/AST 45 H SGPT/ALT 17 ALKALINE PHOSPHATASE 41.0 L PHOS (06/04/24 03:17) PHOSPHOROUS 3.3 PROTHROMBIN TIME (06/04/24 03:17) PROTHROMBIN TIME PATIENT 11.3 INTERNATIONAL NORMAL RATIO 1.01 PTT (06/04/24 03:17) THROMBOPLASTIN TIME PARTIAL 27.7 D FIB (06/04/24 03:17) FIBRINOGEN 219 CBC W/AUTO DIFF (06/04/24 03:17) WHITE BLOOD CELL 4.9 RED BLOOD CELL 4.00 L HEMOGLOBIN 12.8L L HEMATOCRIT 35.6L L MEAN CELL VOLUME 89.0 MEAN CELL HGB 32.0 H MEAN CELL HGB CONCENTRATION 36.0 RED CELL DISTRIBUTION WIDTH 13.7 PLATELET COUNT 169 MEAN PLATELET VOLUME 9.6 NEUTROPHIL % 56.2 LYMPHOCYTE % 30.0 MONOCYTE % 9.7 H EOSINOPHIL % 3.3 BASOPHIL % 0.6 NEUTROPHIL # 2.74 LYMPHOCYTE # 1.46 MONOCYTE # 0.47 EOSINOPHIL # 0.16 BASOPHIL # 0.03 PHOS (06/03/24 19:05) PHOSPHOROUS 3.0 PTT (06/03/24 19:05) THROMBOPLASTIN TIME PARTIAL 81.1 H MAG (06/03/24 19:05) MAGNESIUM 2.0 PROTHROMBIN TIME (06/03/24 19:05) PROTHROMBIN TIME PATIENT 12.0 INTERNATIONAL NORMAL RATIO 1.07 UA RFLX MICR amp;CULT IF INDICATED (06/03/24 19:05) UA COLOR LIGHT YELLOW UA APPEARANCE CLEAR UA GLUCOSE DIPSTICK NEGATIVE UA BILIRUBIN DIPSTICK NEGATIVE UA KETONE DIPSTICK 5 UA SPECIFIC GRAVITY 1.015 UA BLOOD DIPSTICK NEGATIVE UA PH DIPSTICK 6.5 UA PROTEIN DIPSTICK NEGATIVE UA UROBILINOGEN DIPSTICK NORMAL UA NITRITE DIPSTICK NEGATIVE UA LEUKOCYTE ESTERASE DIPSTICK NEGATIVE UA WBC 0-2 UA RBC 0-2 UA BACTERIA OCCASIONAL A UA SQUAMOUS CELLS NONE SEEN COMPREHENSIVE METABOLIC PANEL (06/03/24 19:05) SODIUM 139 POTASSIUM 4.0 CHLORIDE 107 CARBON DIOXIDE 25 GLUCOSE 95 BLOOD UREA NITROGEN 9 GLOMERULAR FILTRATION RATE >=60 max estimate CREATININE 1.00 TOTAL PROTEIN 6.6 ALBUMIN 3.9 CALCIUM 8.7 BILIRUBIN TOTAL 0.9 SGOT/AST 39 H SGPT/ALT 19 ALKALINE PHOSPHATASE 45.0 L BNP (06/03/24 19:05) B-TYPE NATRIURETIC PEPTIDE 314 H CBC W/AUTO DIFF (06/03/24 19:05) WHITE BLOOD CELL 4.8 RED BLOOD CELL 4.04 L HEMOGLOBIN 13.0L L HEMATOCRIT 36.9L L MEAN CELL VOLUME 91.3 MEAN CELL HGB 32.2 H MEAN CELL HGB CONCENTRATION 35.2 RED CELL DISTRIBUTION WIDTH 13.7 PLATELET COUNT 160 MEAN PLATELET VOLUME 9.2 NEUTROPHIL % 57.8 LYMPHOCYTE % 29.9 MONOCYTE % 9.8 H EOSINOPHIL % 1.7 BASOPHIL % 0.6 NEUTROPHIL # 2.79 LYMPHOCYTE # 1.44 MONOCYTE # 0.47 EOSINOPHIL # 0.08 BASOPHIL # 0.03 -- ATTESTATION -- TIME SPENT ON PATIENT CARE: - Direct 55 minutes CARE ACTIVITIES / CARE COORDINATION: - I have reviewed the history and repeated the glass elements - I have seen and examined this patient - I have reviewed the progress in the clinical course since the last examination - I have discussed the patient's condition with other members of the care team Signed in PatientKeeper by Ranjit Sarmiento MD on 06/04/24 at 09:20 at 0920 ATTENTION *EDITS and/or ADDENDA must be made in Patient Keeper for this note. * * Edits and ammendments created in [employer] are not visible * * in Patient Keeper or the legal medical record (HPF). * [facility] #: [id number] END OF REPORT [facility] 2024-06-04 08:52:00 [facility] Cardiology Consultation REPORT #: [id number] REPORT STATUS: Signed DATE: 06/04/24 TIME: 851 PATIENT: KADIE ROCHA UN[facility] #[facility] [id number] [facility] [birth year] AGE: 78 SEX: M ATTEND: Coby Jain MD ADM AUTHOR: Estiven Price DO CF1 ATTENTION *EDITS and/or ADDENDA must be made in Patient Keeper for this note. * * Edits and ammendments created in [employer] are not visible * * in Patient Keeper or the legal medical record (HPF). * -- CO-SIGNATURE -- COMMENTS: I have seen and examined the patient with the tool sharpener, Estiven Price DO on 06/04/2024. I have reviewed all the clinical information, lab investigations, and imaging data. I agree with the following examination, findings, assessment and plan. I was present and supervised. Signed in PatientKeeper by FREIDA SUTTON MD on 06/05/24 at 11:56 -- ASSESSMENT AND PLAN -- GENERAL ASSESSMENT: Mr. Rocha is a 78 year old male with no significant PMH who was transferred from [facility] after presenting initially to [facility] for evaluation of substernal chest pain that started a few days prior. Pt was found to have elevated troponins with nonspecific EKG changes and then was transferred to [place] and found to have MV CAD. Patient was taken to the [facility] and found to have a left main 95% lesion proximal to a PROFESSIONAL NURSING ASSISTANT of the Left circumflex, mid LAD has a 70-80% lesion, RCA has a 90% proximal, 80-90% mid, and 90% distal stenosis. Pt transferred to [facility] for CABG evaluation. On arrival, asymptomatic. VS stable. Labs notable for BNP 314, Hgb 12.8, otherwise grossly unremarkable. Pt being taken for CABG by Dr. Nash this AM. PROBLEMS: 1: Multiple vessel coronary artery disease A/P: - Pt presenting with chest pain, found to have elevated troponin; nonspecific EKG changes - LHC at LT[facility] showed left main 95% lesion proximal to a PROFESSIONAL NURSING ASSISTANT of the LCx, mid LAD has a 70-80% lesion, RCA has a 90% proximal, 80-90% mid, and 90% distal stenosis. - started on heparin drip - Pt being take for CABG this AM by Dr. Nash - antiplatelet therapies and HI statin post CABG - monitor I/Os and tele 2: NSTEMI (non-ST elevated myocardial infarction) A/P: - reportedly elevated at [facility], unclear how elevated - EKG neg for STEMI, nonspecific ST changes - plan as above Discussed with Dr. Sutton. -- HISTORY -- CONSULT REQUESTED BY: Coby Jain MD DATE/TIME AT BEDSIDE: 2024-06-04 07:30 REASON FOR CONSULT: Multivessel CAD CHIEF COMPLAINT: chest pain HPI: Mr. Rocha is a 78 year old male with no significant PMH who was transferred from LT[facility] after presenting initially to [facility] for evaluation of substernal chest pain that started a few days prior. Pt was found to have elevated troponins with nonspecific EKG changes and then was transferred to [place] and found to have MV CAD. Patient was taken to the [facility] and found to have a left main 95% lesion proximal to a PROFESSIONAL NURSING ASSISTANT of the Left circumflex, mid LAD has a 70-80% lesion, RCA has a 90% proximal, 80-90% mid, and 90% distal stenosis. Pt transferred to [facility] for CABG evaluation. On arrival, asymptomatic. VS stable. Labs notable for BNP 314, Hgb 12.8, otherwise grossly unremarkable. Pt being taken for CABG by Dr. Nash this AM. PAST MEDICAL HISTORY: Denies PAST SURGICAL HISTORY: Denies FAMILY HISTORY: NC -SOCIAL HISTORY- -TOBACCO USE- DETAILS/COMMENTS: Denies -VAPING/INHALED SOLVENTS- DETAILS/COMMENTS: Denies -ALCOHOL USE- DETAILS/COMMENTS: Denies -DRUG USE- DETAILS/COMMENTS: Denies -- ALLERGIES/HOME MEDS -- ALLERGIES: No Known Allergies (UNKNOWN - Allergy) -- SUBJECTIVE -- -REVIEW OF SYSTEMS- COMMENT: Negative except as per in HPI. -- OBJECTIVE -- VITALS (06/03 08:52 - 06/04 08:52): Temperature F: 98.4 (98.1 - 98.4) Temperature source: Axillary Pulse Rate 55 (51 - 65) Respiratory rate: 17 (12 - 34) Blood pressure: 140/64 (106/58 - 169/76) Blood pressure source: Monitor I/Os (06/03 07:00 - 06/04 07:00): Net -802.00 Intake 198.00 Output 1,000 -EXAM- GENERAL: Well developed, well nourished, in no apparent distress. HEAD: Normocephalic, atraumatic. NOSE: No deformity, no discharge, no inflammation, no lesions. MOUTH: Oropharynx without deformities or lesions, normal mucosa.. NECK: No masses, no thyromegaly, no abnormal cervical nodes, trachea midline. CHEST: Grossly normal appearance. LUNGS: Clear bilaterally with normal respiratory effort. HEART: Regular rate and rhythm, normal S1, S2, no murmurs, no rubs, no gallops, no clicks. ABDOMEN: Soft, non-tender, no organomegaly, no masses noted. EXTREMITIES: No clubbing, no cyanosis, no edema. NEUROLOGICAL: Alert and oriented. No focal deficits. PULSES: Pulses normal in all extremities. SKIN: Intact without significant lesions, or rashes. PSYCHIATRIC: Normal mood and affect, intact judgment and insight. -- DATA -- MEDICATIONS HEPARIN/SOD CHLOR 0.45% 37592 UNITS IV TITRATE HEPARIN SODIUM,PORCINE 5000 UNIT IV ASDIR (PRN) DEXTROSE 50%-WATER 25 ML IV ASDIR (PRN) polyethylene glycoL 3350 1 PKT PO DAILY bisacodyL 10 MG RECTAL DAILY PRN GLUCAGON 1 MG IM ASDIR (PRN) ACETAMINOPHEN 650 MG PO Q6H PRN DOCUSATE SODIUM 200 MG PO DAILY HEPARIN SODIUM,PORCINE 2500 UNIT IV ASDIR (PRN) MUPIROCIN 1 APPLIC NASAL BID LABS MAG (06/04/24 03:17) MAGNESIUM 2.1 COMPREHENSIVE METABOLIC PANEL (06/04/24 03:17) SODIUM 141 POTASSIUM 4.5 CHLORIDE 107 CARBON DIOXIDE 28 GLUCOSE 97 BLOOD UREA NITROGEN 9 GLOMERULAR FILTRATION RATE >=60 max estimate CREATININE 0.90 TOTAL PROTEIN 6.4 ALBUMIN 3.9 CALCIUM 8.5 L BILIRUBIN TOTAL 0.7 SGOT/AST 45 H SGPT/ALT 17 ALKALINE PHOSPHATASE 41.0 L PHOS (06/04/24 03:17) PHOSPHOROUS 3.3 PROTHROMBIN TIME (06/04/24 03:17) PROTHROMBIN TIME PATIENT 11.3 INTERNATIONAL NORMAL RATIO 1.01 PTT (06/04/24 03:17) THROMBOPLASTIN TIME PARTIAL 27.7 D FIB (06/04/24 03:17) FIBRINOGEN 219 CBC W/AUTO DIFF (06/04/24 03:17) WHITE BLOOD CELL 4.9 RED BLOOD CELL 4.00 L HEMOGLOBIN 12.8L L HEMATOCRIT 35.6L L MEAN CELL VOLUME 89.0 MEAN CELL HGB 32.0 H MEAN CELL HGB CONCENTRATION 36.0 RED CELL DISTRIBUTION WIDTH 13.7 PLATELET COUNT 169 MEAN PLATELET VOLUME 9.6 NEUTROPHIL % 56.2 LYMPHOCYTE % 30.0 MONOCYTE % 9.7 H EOSINOPHIL % 3.3 BASOPHIL % 0.6 NEUTROPHIL # 2.74 LYMPHOCYTE # 1.46 MONOCYTE # 0.47 EOSINOPHIL # 0.16 BASOPHIL # 0.03 PHOS (06/03/24 19:05) PHOSPHOROUS 3.0 PTT (06/03/24 19:05) THROMBOPLASTIN TIME PARTIAL 81.1 H MAG (06/03/24 19:05) MAGNESIUM 2.0 PROTHROMBIN TIME (06/03/24 19:05) PROTHROMBIN TIME PATIENT 12.0 INTERNATIONAL NORMAL RATIO 1.07 UA RFLX MICR amp;CULT IF INDICATED (06/03/24 19:05) UA COLOR LIGHT YELLOW UA APPEARANCE CLEAR UA GLUCOSE DIPSTICK NEGATIVE UA BILIRUBIN DIPSTICK NEGATIVE UA KETONE DIPSTICK 5 UA SPECIFIC GRAVITY 1.015 UA BLOOD DIPSTICK NEGATIVE UA PH DIPSTICK 6.5 UA PROTEIN DIPSTICK NEGATIVE UA UROBILINOGEN DIPSTICK NORMAL UA NITRITE DIPSTICK NEGATIVE UA LEUKOCYTE ESTERASE DIPSTICK NEGATIVE UA WBC 0-2 UA RBC 0-2 UA BACTERIA OCCASIONAL A UA SQUAMOUS CELLS NONE SEEN COMPREHENSIVE METABOLIC PANEL (06/03/24 19:05) SODIUM 139 POTASSIUM 4.0 CHLORIDE 107 CARBON DIOXIDE 25 GLUCOSE 95 BLOOD UREA NITROGEN 9 GLOMERULAR FILTRATION RATE >=60 max estimate CREATININE 1.00 TOTAL PROTEIN 6.6 ALBUMIN 3.9 CALCIUM 8.7 BILIRUBIN TOTAL 0.9 SGOT/AST 39 H SGPT/ALT 19 ALKALINE PHOSPHATASE 45.0 L BNP (06/03/24 19:05) B-TYPE NATRIURETIC PEPTIDE 314 H CBC W/AUTO DIFF (06/03/24 19:05) WHITE BLOOD CELL 4.8 RED BLOOD CELL 4.04 L HEMOGLOBIN 13.0L L HEMATOCRIT 36.9L L MEAN CELL VOLUME 91.3 MEAN CELL HGB 32.2 H MEAN CELL HGB CONCENTRATION 35.2 RED CELL DISTRIBUTION WIDTH 13.7 PLATELET COUNT 160 MEAN PLATELET VOLUME 9.2 NEUTROPHIL % 57.8 LYMPHOCYTE % 29.9 MONOCYTE % 9.8 H EOSINOPHIL % 1.7 BASOPHIL % 0.6 NEUTROPHIL # 2.79 LYMPHOCYTE # 1.44 MONOCYTE # 0.47 EOSINOPHIL # 0.08 BASOPHIL # 0.03 Signed in PatientKeeper by Estiven Price on 06/04/24 at 12:31 Cosigned by FREIDA SUTTON MD on 06/05/24 at 11:56 at 1156 at 1156 ATTENTION *EDITS and/or ADDENDA must be made in Patient Keeper for this note. * * Edits and ammendments created in [facility] are not visible * * in Patient Keeper or the legal medical record (HPF). * RPT #: [id number] END OF REPORT [facility] 2024-06-04 07:30:00 [facility] ([facility]) Cardiothoracic Surg. Consult REPORT #: [id number] REPORT STATUS: Signed DATE: 06/04/24 TIME: 729 PATIENT: KADIE ROCHA UNIT #: [id number] ROOM #: [id number] BED: 1 : 45 AGE: 78 SEX: M ATTEND: Coby Jain MD ADM AUTHOR: Micheal Hutchison ATTENTION *EDITS and/or ADDENDA must be made in Patient Keeper for this note. * * Edits and ammendments created in [employer] are not visible * * in Patient Keeper or the legal medical record (HPF). * -- ASSESSMENT AND PLAN -- RESUSCITATION DISCUSSION: 78-year-old male with very little past medical history who presents with sudden onset set chest pain at an outside hospital found to have severe multivessel Coronary artery disease including 95% left main coronary artery stenosis. Transferred to [facility] for higher level of care. GENERAL ASSESSMENT: Patient was seen and evaluated by Dr. Nash this morning left heart catheterization and all recent lab and imaging data have been reviewed. Urgent/ emergent coronary artery revascularization is recommended due to the critical stenosis of his left main and high probability of Acute deterioration and morbidity mortality if untreated. Risk benefits alternatives and possible complications associated with coronary artery bypass surgery discussed at length with the patient by Dr. Nash patient's questions were answered and he is requesting proceed with surgery STS SCORE: 3.25 - Yes, STS risk calculator score was calculated and discussed with patient/family prior to surgery as documented in the medical record ADDITIONAL COMMENTS: Procedure Type: Isolated CABG Perioperative Outcome Estimate % Operative Mortality 3.25% Morbidity Mortality 9.51% Stroke 1.27% Renal Failure 1.44% Reoperation 3.98% Prolonged Ventilation 4.66% Deep Sternal Wound Infection 0.091% Long Hospital Stay (>14 days) 4.74% Short Hospital Stay (<6 days)* 41.8% -- HISTORY -- CONSULT REQUESTED BY: Freida Sutton MD DATE/TIME AT BEDSIDE: 2024-06-04 07:30 REASON FOR CONSULT: CAD, Critical LM stenosis CHIEF COMPLAINT: NSTEMI HPI: This is a 78-year-old male who Was transferred to LT[facility] from a hospital in [facility] with complaints of acute onset of chest pain and Elevated cardiac enzymes without definitive EKG changes.Left heart catheterization was performed revealing severe multivessel disease including 95% Left main stenosis. Hemodynamics were preserved chest pain had been resolved therefore mechanical support was not initiated but urgent transfer to [facility] for surgical intervention was planned. Patient was chest pain-free and hemodynamically stable on arrival. PAST MEDICAL HISTORY: medical history PAST SURGICAL HISTORY: currently without any diagnosis regarding medication FAMILY HISTORY: reviewed and not relevant to current condition -SOCIAL HISTORY- -TOBACCO USE- DETAILS/COMMENTS: never smoked -VAPING/INHALED SOLVENTS- DETAILS/COMMENTS: patient denies use; -ALCOHOL USE- DETAILS/COMMENTS: patient denies use; -DRUG USE- DETAILS/COMMENTS: never MARITAL STATUS: LIVING SITUATION: lives independently with his does have good family support -- ALLERGIES/HOME MEDS -- ALLERGIES: No Known Allergies (UNKNOWN - Allergy) -- SUBJECTIVE -- -REVIEW OF SYSTEMS- GENERAL: Review of systems as per HPI no positive endorsements for other systems -- OBJECTIVE -- VITALS (06/03 12:01 - 06/04 12:01): Temperature F: 98.4 (98.1 - 98.4) Temperature source: Axillary Pulse Rate 55 (51 - 65) Respiratory rate: 17 (12 - 34) Blood pressure: 140/64 (106/58 - 169/76) Blood pressure source: Monitor I/Os (06/03 07:00 - 06/04 07:00): Net -802.00 Intake 198.00 Output 1,000 -EXAM- GENERAL: Well developed, well nourished, in no apparent distress. HEAD: Normocephalic, atraumatic. NOSE: No deformity, no discharge, no inflammation, no lesions. MOUTH: Oropharynx without deformities or lesions, normal mucosa.. NECK: No masses, no thyromegaly, no abnormal cervical nodes, trachea midline. CHEST: Grossly normal appearance. BREAST: No masses, no gynecomastia noted. LUNGS: Clear bilaterally with normal respiratory effort. HEART: Regular rate and rhythm, normal S1, S2, no murmurs, no rubs, no gallops, no clicks. ABDOMEN: Soft, non-tender, no organomegaly, no masses noted. MUSCULOSKELETAL: No deformity, no scoliosis noted of thoracic or lumbar spine, joint ROM grossly normal, normal gait and station. EXTREMITIES: No clubbing, no cyanosis, no edema. NEUROLOGICAL: No focal deficits, cranial nerves II-XII grossly intact, normal sensation, normal reflexes, normal coordination, normal muscle strength, normal tone. PULSES: Pulses normal in all extremities. SKIN: Intact without significant lesions, or rashes. PSYCHIATRIC: Alert and oriented to time, person, place. Normal mood and affect, intact judgment and insight. -- DATA -- MEDICATIONS HEPARIN/SOD CHLOR 0.45% 32346 UNITS IV TITRATE HEPARIN SODIUM,PORCINE 5000 UNIT IV ASDIR (PRN) DEXTROSE 50%-WATER 25 ML IV ASDIR (PRN) polyethylene glycoL 3350 1 PKT PO DAILY bisacodyL 10 MG RECTAL DAILY PRN GLUCAGON 1 MG IM ASDIR (PRN) ACETAMINOPHEN 650 MG PO Q6H PRN DOCUSATE SODIUM 200 MG PO DAILY HEPARIN SODIUM,PORCINE 2500 UNIT IV ASDIR (PRN) MUPIROCIN 1 APPLIC NASAL BID LABS ACT (06/04/24 11:54) COAGULATION TIME ACTIVATED 116 ACT (06/04/24 10:45) COAGULATION TIME ACTIVATED 482 H ACT (06/04/24 10:10) COAGULATION TIME ACTIVATED 519 H ACT (06/04/24 09:31) COAGULATION TIME ACTIVATED 501 H MAG (06/04/24 03:17) MAGNESIUM 2.1 COMPREHENSIVE METABOLIC PANEL (06/04/24 03:17) SODIUM 141 POTASSIUM 4.5 CHLORIDE 107 CARBON DIOXIDE 28 GLUCOSE 97 BLOOD UREA NITROGEN 9 GLOMERULAR FILTRATION RATE >=60 max estimate CREATININE 0.90 TOTAL PROTEIN 6.4 ALBUMIN 3.9 CALCIUM 8.5 L BILIRUBIN TOTAL 0.7 SGOT/AST 45 H SGPT/ALT 17 ALKALINE PHOSPHATASE 41.0 L PHOS (06/04/24 03:17) PHOSPHOROUS 3.3 PROTHROMBIN TIME (06/04/24 03:17) PROTHROMBIN TIME PATIENT 11.3 INTERNATIONAL NORMAL RATIO 1.01 PTT (06/04/24 03:17) THROMBOPLASTIN TIME PARTIAL 27.7 D FIB (06/04/24 03:17) FIBRINOGEN 219 CBC W/AUTO DIFF (06/04/24 03:17) WHITE BLOOD CELL 4.9 RED BLOOD CELL 4.00 L HEMOGLOBIN 12.8L L HEMATOCRIT 35.6L L MEAN CELL VOLUME 89.0 MEAN CELL HGB 32.0 H MEAN CELL HGB CONCENTRATION 36.0 RED CELL DISTRIBUTION WIDTH 13.7 PLATELET COUNT 169 MEAN PLATELET VOLUME 9.6 NEUTROPHIL % 56.2 LYMPHOCYTE % 30.0 MONOCYTE % 9.7 H EOSINOPHIL % 3.3 BASOPHIL % 0.6 NEUTROPHIL # 2.74 LYMPHOCYTE # 1.46 MONOCYTE # 0.47 EOSINOPHIL # 0.16 BASOPHIL # 0.03 PHOS (06/03/24 19:05) PHOSPHOROUS 3.0 PTT (06/03/24 19:05) THROMBOPLASTIN TIME PARTIAL 81.1 H MAG (06/03/24 19:05) MAGNESIUM 2.0 PROTHROMBIN TIME (06/03/24 19:05) PROTHROMBIN TIME PATIENT 12.0 INTERNATIONAL NORMAL RATIO 1.07 UA RFLX MICR amp;CULT IF INDICATED (06/03/24 19:05) UA COLOR LIGHT YELLOW UA APPEARANCE CLEAR UA GLUCOSE DIPSTICK NEGATIVE UA BILIRUBIN DIPSTICK NEGATIVE UA KETONE DIPSTICK 5 UA SPECIFIC GRAVITY 1.015 UA BLOOD DIPSTICK NEGATIVE UA PH DIPSTICK 6.5 UA PROTEIN DIPSTICK NEGATIVE UA UROBILINOGEN DIPSTICK NORMAL UA NITRITE DIPSTICK NEGATIVE UA LEUKOCYTE ESTERASE DIPSTICK NEGATIVE UA WBC 0-2 UA RBC 0-2 UA BACTERIA OCCASIONAL A UA SQUAMOUS CELLS NONE SEEN COMPREHENSIVE METABOLIC PANEL (06/03/24 19:05) SODIUM 139 POTASSIUM 4.0 CHLORIDE 107 CARBON DIOXIDE 25 GLUCOSE 95 BLOOD UREA NITROGEN 9 GLOMERULAR FILTRATION RATE >=60 max estimate CREATININE 1.00 TOTAL PROTEIN 6.6 ALBUMIN 3.9 CALCIUM 8.7 BILIRUBIN TOTAL 0.9 SGOT/AST 39 H SGPT/ALT 19 ALKALINE PHOSPHATASE 45.0 L BNP (06/03/24 19:05) B-TYPE NATRIURETIC PEPTIDE 314 H CBC W/AUTO DIFF (06/03/24 19:05) WHITE BLOOD CELL 4.8 RED BLOOD CELL 4.04 L HEMOGLOBIN 13.0L L HEMATOCRIT 36.9L L MEAN CELL VOLUME 91.3 MEAN CELL HGB 32.2 H MEAN CELL HGB CONCENTRATION 35.2 RED CELL DISTRIBUTION WIDTH 13.7 PLATELET COUNT 160 MEAN PLATELET VOLUME 9.2 NEUTROPHIL % 57.8 LYMPHOCYTE % 29.9 MONOCYTE % 9.8 H EOSINOPHIL % 1.7 BASOPHIL % 0.6 NEUTROPHIL # 2.79 LYMPHOCYTE # 1.44 MONOCYTE # 0.47 EOSINOPHIL # 0.08 BASOPHIL # 0.03 Signed in PatientKeeper by Micheal Hutchison on 06/04/24 at 14:37 at 1437 ATTENTION *EDITS and/or ADDENDA must be made in Patient Keeper for this note. * * Edits and ammendments created in [employer] are not visible * * in Patient Keeper or the legal medical record ([facility]). * [facility] #: [id number] END OF REPORT [facility] 2024-06-04 00:00:00 [id number] [facility] [id number] [place] [id number] PATIENT NAME: KADIE ROCHA ADMIT DATE: 06/03/24 ACCOUNT NO: [id number] ROOM NO: [facility] AGE: 78 REPORT TYPE: eECHOCARDIOGRAM REPORT SEX: M ADMITTING PHYSICIAN: Gulshan Lai MD ATTENDING PHYSICIAN: Gulshan Lai MD *[facility]* [address] [place], [place] [address] Transthoracic Echocardiogram Patient: Kadie Rocha Study Date: 06/03/2024 BP: 122 / 58 URN: [id number] Location: : 1945 Age: 78 Gender: M Height: 70.9 in / 180 cm Weight: 161 lb / 73 kg BMI/BSA: 22.5 kg/m 2 / 1.91 m 2 *Ordering Physician: * Juanita Catalan *Interpreting Physician: * Jean Marie Brownlee MD *Shear Grinder Operator Helper: * Cristal Walters Indications: Chf , nstemi. Study data: Transthoracic echocardiogram. Procedure: A transthoracic echocardiogram was performed. Image quality was adequate. Complete 2D, complete spectral Doppler, and color Doppler. Location: Emergency department. Patient status: Inpatient. Study status: Routine. Heart rate: 50 bpm. Findings Left ventricle: The cavity size is mildly dilated. Wall thickness is normal. Systolic function is mildly reduced. The estimated ejection fraction is 45-49%. Regional wall motion abnormalities: Mild hypokinesis of the inferior wall. Grade II diastolic dysfunction. PATIENT NAME: KADIE ROCHA Right ventricle: The cavity size is normal. Systolic function is normal. Left atrium: The atrium is normal in size. Right atrium: The atrium is normal in size. Aortic valve: The valve is structurally normal. The valve is trileaflet. There is no evidence of stenosis. There is mild regurgitation. Mitral valve: The valve is structurally normal. There is no evidence of stenosis. There is moderate regurgitation. Tricuspid valve: The valve is structurally normal. There is mild regurgitation. Pulmonic valve: The valve is structurally normal. There is mild regurgitation. Pericardium: A trivial pericardial effusion is identified. Systemic veins: Inferior vena cava: The IVC is normal-sized. Measurements Left ventricle Value Ref YELENA, LAX 5.8 cm 4.2 - 5.8 ESD, LAX 4.5 cm 2.5 - 4.0 FS, LAX 23 % 25 - 43 IVS, ED 1.0 cm 0.6 - 1.0 PW, ED 1.0 cm 0.6 - 1.0 IVS/PW, ED 1.02 --------- EF 46 % 52 - 72 LVOT Value Ref Diam, S 2.03 cm --------- Area 3.2 cm 2 --------- Peak mel, S 0.94 m/sec --------- Mean mel, S 0.61 m/sec --------- VTI, S 19.3 cm --------- Peak grad, S 4 mm Hg --------- Mean grad, S 2 mm Hg --------- SV 62 ml --------- SV/bsa 33 ml/m 2 --------- Right ventricle Value Ref Pressure, S 38 mm Hg --------- Left atrium Value Ref Vol/bsa, ES, 1-p A4C 22 ml/m 2 12 - 37 Vol/bsa, ES, A/L 25 ml/m 2 16 - 34 AP dim, ES MM 4.0 cm 3.0 - 4.0 LA/Ao root ratio, MM 1.18 --------- Aortic valve Value Ref Leaflet sep, MM 1.76 cm --------- Peak v, S 1.2 m/sec --------- Mean v, S 0.84 m/sec --------- VTI, S 26.5 cm --------- Mean grad, S 3 mm Hg --------- Peak grad, S 5.6 mm Hg --------- PATIENT NAME: KADIE ROCHA LVOT/AV, VTI ratio 0.73 --------- ELADIA, VTI 2.36 cm 2 --------- LVOT/AV, Vpeak ratio 0.8 --------- ELADIA, Vmax 2.57 cm 2 --------- AR peak v 3.65 m/sec --------- AR decel 57.57 cm/s 2 --------- AR decel time 6340 ms --------- AR PHT 1839 ms --------- AR peak grad 53 mm Hg --------- Mitral valve Value Ref Peak E 0.78 m/sec --------- Peak A 0.76 m/sec --------- Decel time 182 ms --------- PHT 71 ms --------- Peak grad, D 2.4 mm Hg --------- Peak E/A ratio 1.02 --------- MVA, PHT 3.1 cm 2 --------- MR peak v 5.53 m/sec --------- Pulmonic valve Value Ref OK peak v 0.95 m/sec --------- OK peak grad 4 mm Hg --------- Tricuspid valve Value Ref TR peak v 2.9 m/sec <=2.8 Peak RV-RA grad, S 33 mm Hg --------- Aortic root Value Ref Root diam, ED MM 3.4 cm --------- Pulmonary artery Value Ref Pressure, S 36.0 mm Hg --------- Systemic veins Value Ref Estimated CVP 5 mm Hg --------- Pulmonary veins Value Ref A rev duration 114 ms --------- Conclusions Summary: 1. Left ventricle: The cavity size is mildly dilated. Wall thickness is normal. Systolic function is mildly reduced. The estimated ejection fraction is 45-49%. Mild hypokinesis of the inferior wall. Grade II diastolic dysfunction. 2. Right ventricle: The RV pressure during systole is 38 mm Hg. 3. Mitral valve: There is moderate regurgitation. Electronically signed by PATIENT NAME: KADIE ROCHA Jean Marie Brownlee MD 06/04/2024 00:00 at 0000 PATIENT NAME: KADIE ROCHA [facility] 2024-06-03 23:55:00 [facility] Cath Post Proc-Full REPORT#:[id number] REPORT STATUS: Signed REPORT INITIALIZATION DATE:06/03/24 TIME:2354 PATIENT: KADIE ROCHA UNIT #: [id number] ROOM/BED: [place] [address] : 45 AGE: 78 SEX: M ATTEND: Gulshan Lai MD ADM AUTHOR: Jean Marie Brownlee MD REPT SERVICE DT/TIME: 06/03/24 6331 * ALL edits or amendments must be made on the electronic/computer document * Cath Procedure Cath Procedure Start date: 06/03/24 Start time: 0140 Post-procedure diagnosis: CAD Procedure performed: diag coronary angiography, left heart cath Performed by: Jean Marie Brownlee Prune Washer(s): none Procedure details: SEDATION : MODERATE SEDATION administered under my direct supervision. There is a separate qualified sedation nurse present and available for safe conduct of physician monitored conscious sedation PROCEDURE: After explaining the risks and benefits of the procedure informed consent was obtained. (See nursing notes for medications administered). The right radial was prepped in a sterile fashion and draped. 1% lidocaine was used to infiltrate the right arm by the radial artery. A 6 Fr Terumo slender sheath was placed in the right radial artery using the modified Seldinger technique. Coronary angiography and left heart catheterization were performed using 5-Fr Edison preformed catheter. All catheters were removed over a guide wire. Successful hemostasis at the access site was achieved using a TR band. The case ended without any complications. Estimated blood loss <30ml. CORONARY ANGIOGRAPHY: Left Main: Heavily calcified, 95% left main disease extending into proximal LAD Left Anterior Descending Artery: Proximal LAD has 95% disease, mid LAD has multiple severe lesions of 80 to 90%, distal LAD without any high-grade lesion, lesions noted in preapical LAD First diagonal has 80% proximal lesion Left Circumflex: Occluded Right Coronary Artery: 85% proximal RCA, multiple high-grade lesion from proximal mid and distal RCA, 80% ostial PDA, no high-grade lesion of the PL LEFT HEART CATHETERIZATION: AO and LV pressures (LVEDP [13] mm Hg) No significant gradient on pullback. Findings: SUMMARY OF FINDINGS: 1. Critical distal left main disease 2. High-grade multivessel disease RECOMMENDATIONS: -Case discussed with CT surgery. Patient will be transferred to [facility] for urgent bypass. Continue patient on heparin drip Complications: none Anesthesia type: moderate sedation Mod. sedation provided by me: yes Independent trained observer present monitored pt's resp. to the sedation yes Estimated blood loss in ml's: 10 Specimens removed/altered: none Implants: none at 0022 RPT #: [id number] END OF REPORT [facility] 2024-06-03 23:55:00 [facility] ([facility]) Cardiology Consultation REPORT#:[id number] REPORT STATUS: Signed REPORT INITIALIZATION DATE:06/03/24 TIME:2354 PATIENT: KADIE ROCHA UNIT #: [id number] ROOM/BED: [place] [address] : 45 AGE: 78 SEX: M ATTEND: Gulshan Lai MD ADM AUTHOR: Jean Marie Brownlee MD REPT SERVICE DT/TIME: 06/03/24 6251 * ALL edits or amendments must be made on the electronic/computer document * History of Present Illness HPI HPI: 78-year-old male with no significant past medical history presented to the emergency department complaining of chest pain. Patient says that he has been having off-and-on chest pain for over 2 weeks. Patient eventually decided to come to the emergency department. In the ED patient was found to have elevated troponin. EKG with no acute ST elevation. Initial EKG showed diffuse ST pressures. Patient subsequently became chest pain-free and follow-up EKG showed resolution of the ST depression. At time of my examination was denying any active chest pain however his troponin continued to remain elevated. Patient was transferred to [facility] for coronary angiogram. Patient coronary angiogram showed critical left main disease. Patient also has severe multivessel disease. After discussion with CT surgery patient will be transferred to [facility] for urgent bypass. Review of system: 10 point review of system is negative except HPI History - Adult longitudinal Additional medical history: HTN Additional family history: Noncontributory Smoking status for patients 13 years old or older: Never Smoker Allergies: Coded Allergies: No Known Allergies (06/02/24) Objective General VS/I O: Vital Signs: Date Time Temp Pulse Resp B/P B/P Pulse O2 O2 Flow FiO2 Mean Ox Delivery Rate 06/03 1737 56 20 144/74 100 06/03 1700 52 20 139/72 100 Room air 06/03 1645 52 20 140/71 99 06/03 1630 55 20 129/71 100 Room air 06/03 1615 56 20 135/72 100 Room air 06/03 1600 53 20 98/54 99 Room air 06/03 1545 53 20 139/72 99 Room air 06/03 1530 57 20 142/77 100 Room air 06/03 1515 57 20 154/73 100 Room air 06/03 1500 55 20 145/75 100 Nasal 2 cannula 06/03 1445 52 18 133/72 100 06/03 1438 Nasal 2 cannula 06/03 1430 98.0 57 25 131/75 100 Nasal 2 cannula 06/03 1200 98.0 54 17 128/71 90 96 Room air 06/03 1145 53 26 96 06/03 1130 53 28 133/67 94 96 09/19 1115 54 19 95 09/19 1100 54 25 139/70 98 97 09/19 1045 59 45 98 09/19 1030 55 21 126/71 93 96 09/19 1015 52 17 96 09/19 1000 54 17 117/65 86 96 09/19 0945 52 17 96 09/19 0930 54 24 142/78 103 97 09/19 0915 53 30 97 09/19 0900 60 46 161/87 118 98 09/19 0845 54 32 97 09/19 0830 52 33 140/71 100 94 09/19 0815 53 28 99 09/19 0802 56 32 163/71 102 96 09/19 0800 98.0 56 36 97 /19 0745 53 34 97 /19 0730 54 34 157/90 115 96 /19 0700 56 18 145/70 100 96 /19 0630 56 21 129/71 94 95 /19 0600 52 20 132/63 91 97 /19 0530 51 29 111/56 80 94 / 0500 50 21 131/60 87 94 /19 0430 51 25 122/58 84 94 /19 0400 53 16 146/67 96 95 / 0330 52 27 142/64 92 97 /19 0300 48 18 130/69 93 95 /19 0230 53 21 118/61 84 97 / 0200 51 17 146/67 96 96 / 0130 57 28 162/77 109 100 / 0100 59 21 147/76 103 98 / 0030 57 19 181/83 119 98 / 0000 54 17 162/86 118 98 24 hour I O ending at 0700: 06/03 0700 06/02 1900 Intake Total Output Total Balance Patient 73.1 kg Weight Weight Bed scale Measurement Method PATIENT WEIGHT: Weight (lb): Weight (oz): Weight (kg): 73.100 Medications: Active Meds + DC'd Last 24 Hrs Mupirocin (BACTROBAN) 1 APPLIC BID NASAL (DCD) Iopamidol (ISOVUE-300) 0 .STK-MED ONE .ROUTE (DC) Heparin Sodium (Porcine) (HEPARIN SODIUM) 0 .STK-MED ONE .ROUTE (DC) Verapamil HCl (ISOPTIN) 0 .STK-MED ONE .ROUTE (DC) Fentanyl Citrate (SUBLIMAZE) 0 .STK-MED ONE .ROUTE (DC) Midazolam HCl (VERSED) 0 .STK-MED ONE .ROUTE (DC) Heparin Sodium (Porcine) (HEPARIN 1,000 UNITS/NS 500 ML) 1,000 ML .STK-MED ONE IV (DC) Iopamidol (ISOVUE-300) 0 .STK-MED ONE .ROUTE (DC) Pantoprazole Sodium (PROTONIX) 40 MG Q12HR IV (DCD) Perflutren Lipid Microsphere (DEFINITY) 2 ML ONCE PRN IV (DCD) Acetaminophen (TYLENOL) 650 MG Q4H PRN PRN PO (DCD) Docusate Sodium (COLACE) 100 MG BID PRN PRN PO (DCD) Hydralazine HCl (APRESOLINE) 10 MG Q6H PRN PRN IV (DCD) Hydrocodone Bitart/Acetaminophen (NORCO 5/325) 1 TAB Q6H PRN PRN PO (DCD ) Ondansetron HCl (ZOFRAN) 4 MG Q6H PRN PRN IV (DCD) Tramadol HCl (ULTRAM) 50 MG Q6H PRN PRN PO (DCD) Heparin Sodium (Porcine) (HEPARIN SODIUM) 5,848 UNIT ONCE ONE IV (CAN) Heparin Sodium/Dextrose (Heparin 25,000 Unit/500 ML D5W) 500 ML ASDIR IV (DCD) Results Findings/Data: Laboratory Tests 06/03 06/03 06/03 06/03 1410 0848 0848 0539 Chemistry Hemoglobin A1c (4.8 - 6.0 % A1C) 5.0 Troponin I High Sens (0 - 78 ng/L) 3781.3 *H 3163.5 *H 3018.5 *H Triglycerides (0 - 150 MG/DL) 79 Cholesterol (133 - 200 MG/DL) 201 H LDL Cholesterol Measurd (0 - 129 118 MG/DL) Non-HDL Cholesterol (<130 mg/dL) 149 H HDL Cholesterol (60 MG/DL) 52 L LDL/HDL Ratio (1.48 - 3.22 Avg Ratio) 2.26 Cholesterol/HDL Ratio (0 RATIO) 3.87 TSH (0.34 - 4.82 mcIU/ML) 5.11 H Free T4 (0.77 - 1.61 NG/DL) 0.91 06/03 06/03 0539 0328 Chemistry Sodium (136 - 145 mmol/L) 139 Potassium (3.4 - 5.0 mmol/L) 4.0 Chloride (98 - 107 mmol/L) 105 Carbon Dioxide (21 - 32 mmol/L) 30 Anion Gap (4 - 15 GAP calc) 4 BUN (7 - 18 MG/DL) 14 Creatinine (0.6 - 1.0 MG/DL) 1.0 Glomerular Filtr Rate (>60 estGFR) >=60 max estimate Glucose (70 - 110 MG/DL) 108 Calcium (8.5 - 10.1 MG/DL) 8.9 Phosphorus (2.5 - 4.9 MG/DL) 3.8 Magnesium (1.8 - 2.4 MG/DL) 2.0 Total Bilirubin (0.0 - 1.0 MG/DL) 0.7 AST (15 - 37 Unit/L) 41 H ALT (30 - 65 Unit/L) 23 L Total Alk Phosphatase (50 - 136 Unit/L) 46 L Troponin I High Sens (0 - 78 ng/L) 2658.3 *H Total Protein (6.4 - 8.2 G/DL) 6.5 Albumin (3.4 - 5.0 G/DL) 3.4 Globulin (GM/dL) 3.1 Albumin/Globulin Ratio (1.2 - 2.2 RATIO) 1.1 L 06/02 0289 Chemistry Sodium (136 - 145 mmol/L) 140 Potassium (3.4 - 5.0 mmol/L) 3.8 Chloride (98 - 107 mmol/L) 103 Carbon Dioxide (21 - 32 mmol/L) 31 Anion Gap (4 - 15 GAP calc) 6 BUN (7 - 18 MG/DL) 16 Creatinine (0.6 - 1.0 MG/DL) 1.1 H Glomerular Filtr Rate (>60 estGFR) >=60 max estimate Glucose (70 - 110 MG/DL) 121 H Calcium (8.5 - 10.1 MG/DL) 8.9 Total Bilirubin (0.0 - 1.0 MG/DL) 0.5 AST (15 - 37 Unit/L) 34 ALT (30 - 65 Unit/L) 22 L Total Alk Phosphatase (50 - 136 Unit/L) 51 Troponin I High Sens (0 - 78 ng/L) 2441.9 *H NT-Pro-B Natriuret Pep (0 - 100 PG/ML) 1824 H Total Protein (6.4 - 8.2 G/DL) 6.7 Albumin (3.4 - 5.0 G/DL) 3.5 Globulin (GM/dL) 3.2 Albumin/Globulin Ratio (1.2 - 2.2 RATIO) 1.1 L Laboratory Tests 06/03 06/03 06/03 1247 0620 0335 Coagulation PTT ([place]) (26 - 35 SECONDS) 93.5 H 68.6 H 148.5 *H Laboratory Tests 06/03 0028 Hematology WBC (3.5 - 11.0 K/mm3) 6.6 RBC (4.70 - 6.10 M/mm3) 3.92 L Hgb (12.3 - 15.9 G/DL) 12.4 Hct (35.8 - 46.7 %) 35.6 L MCV (86.3 - 98.9 Fl) 90.8 MCH (28.9 - 34.4 pg) 31.6 MCHC (32.1 - 34.5 G/DL) 34.8 H RDW (11.5 - 14.5 SD) 13.7 Plt Count (150 - 450 K/mm3) 172 MPV (7.0 - 9.6 fL) 9.10 Neut % (Auto) (40 - 76 %) 63.9 Lymph % (Auto) (20.5 - 51.1 %) 23.6 [place] % (Auto) (1.7 - 9.3 %) 8.9 Eos % (Auto) (0.0 - 6.0 %) 2.9 Baso % (Auto) (0.0 - 2.0 %) 0.5 Neut # (Auto) (1.8 - 7.6 K/mm3) 4.2 Lymph # (Auto) (0.6 - 3.0 K/mm3) 1.6 [place] # (Auto) (0.2 - 1.5 K/mm3) 0.6 Eos # (Auto) (0.0 - 0.4 K/mm3) 0.2 Baso # (Auto) (0.0 - 0.2 K/mm3) 0.0 Abs Immat Gran (auto) (0.00 - 0.03 x10 3/uL) 0.01 Immature Gran % (0.0 - 5.0 %) 0.2 Nucleated RBC % (0.0 - 1.0 /100WBC%) 0.0 Laboratory Tests 06/03 06/03 06/03 06/03 1410 0848 0539 0328 Chemistry Magnesium (1.8 - 2.4 MG/DL) 2.0 Troponin I High Sens (0 - 78 ng/L) 3781.3 *H 3163.5 *H 3018.5 *H 2658.3 *H 06/02 2359 Chemistry Troponin I High Sens (0 - 78 ng/L) 2441.9 *H Radiology Data: Recent Impressions: RADIOLOGY - XR CHEST 1 V 06/03 0721 Report Impression - Status: SIGNED Entered: 06/03/2024 0731 IMPRESSION: No acute cardiopulmonary process. Impression By: PraveenSWDeanna - Ryan Hicks M.D Free Text Obj Notes Free Text Obj Notes: GENERAL: Well developed, comfortable, in no distress HEENT: Normocephalic, atraumatic NECK: JVP not raised, no carotid bruit CHEST: Normal shape and contour LUNGS: Equal air entry bilaterally, normal vesicular breathing HEART: regular rate, normal S1 and S2, No murmurs, rubs or gallops ABDOMEN: Soft, lax, non-tender, non-distended PERIPHERAL PULSES: 2+ dorsalis pedis pulses EXTREMITIES: No edema, no clubbing or cyanosis NEUROLOGIC: Alert and oriented to time place and person, no gross motor or sensory deficits Diagnosis, Assessment Plan Free Text DxA P Notes Free Text DxA P Notes: NSTEMI High-grade multivessel coronary artery disease Ischemic cardiomyopathy Patient had urgent coronary angiogram done which showed critical left main disease. Very high risk for intervention. Patient is 78-year-old but he is functional denies any recent stroke or history of remote stroke. He is very active without any major comorbidities. Discussed with CT surgery who recommended in light of patient's high functional status and very high risk of left main disease CABG would be preferable over high risk PCI I personally discussed these findings with the patient and his . Patient will be transferred urgently to [facility]. Patient is currently on a heparin drip. Not loaded with any Plavix or Brilinta or prasugrel. Echo showed reduced EF with inferior wall hypokinesis. I personally performed patient's coronary angiogram. I also was the case with CT surgery and made arrangements for patient's emergent transfer to [facility]. Total clinical time spent with the patient other than the procedure over 70 minutes at 0026 RPT #: [id number] END OF REPORT [facility] 2024-06-03 19:39:00 [id number] [address] PATIENT NAME: KADIE ROCHA ADMIT DATE: 06/03/24 ACCOUNT NO: [id number] ROOM NO: [facility] AGE: 78 REPORT TYPE: eELECTROCARDIOGRAM SEX: M ADMITTING PHYSICIAN: Coby Jain MD ATTENDING PHYSICIAN: Coby Jain MD Order: [id number] Test Reason : pre op cab Test Date/Time Stamp: FriJun 03 2024 19:39:43 Blood Pressure : / mmHG Vent. Rate : 057 BPM Atrial Rate : 057 BPM P-R Int : 158 ms QRS Dur : 092 ms QT Int : 432 ms P-R-T Axes : 065 003 -70 degrees QTc Int : 420 ms Sinus bradycardia Nonspecific ST and T wave abnormality Confirmed by fellow Olga Mayen ([id number]) on 06/04/2024 7:36:50 AM Confirmed by YUMI LAI ([id number]) on 06/04/2024 9:49:15 AM Referred By: Self Referred Confirmed by:YUMI LAI at 0949 PATIENT NAME: KADIE ROCHA [facility] 2024-06-03 18:40:00 [facility] Critical Care H P REPORT#:[id number] REPORT STATUS: Signed REPORT INITIALIZATION DATE:06/03/24 TIME: 1839 PATIENT: KADIE ROCHA UNIT #: [id number] ROOM: [facility] BED: 1 : 45 AGE: 78 SEX: M ATTEND: Coby Jain MD ADM AUTHOR: Russ Leos MD REPT SERVICE DT/TIME: 06/03/24 1840 * ALL edits or amendments must be made on the electronic/computer document * History of Present Illness HPI Chief complaint: Chest pain PCP: PCP: Undefined Provider HPI: 70-year-old male with no significant history presented to [facility] initially for evaluation for probable NSTEMI. Patient was sent to [facility] where he was evaluated. He was transferred for further surgical resolution to [facility]. Patient states that couple days ago started having some midepigastric abdominal discomfort complained on and off no related to activity it persisted and became more intense after eating a meal earlier today that did not go away. No fever chills no nausea or vomiting. Evaluated at [facility] found to have an elevated troponin with unspecified EKG changes. With this patient was transferred to [place]. In [place] patient was admitted to the hospital service for evaluation of chest pain. Started on heparin drip and given aspirin. Cardiology was consulted. Lab work did show an elevated BNP at 1824. Patient was taken to the [facility] underwent cardiac catheterization. Found to have a left main 95% lesion proximal to the the circumflex which is occluded. The LAD mid has 70 to 80% lesion. The right has a 90% proximal 8090% mid and 90 % distal patient was transferred to [facility] for surgical resolution Patient seen and evaluated on arrival awake and alert no complaints of pain no shortness of breath no chest pain. Alert and interactive Hx Obtained From Patient, Prior medical records History Past medical history: Denies: Alcoholism/subst abuse, Anemia, Arthritis, Atrial fibrillation, Congestive heart failure, Dementia, GERD/gastritis, Transient ischemic attack. Review of Systems Constitutional: Denies: chills, fatigue, generalized weakness, lethargy, recent wt loss. Skin: Reports: rash. Denies: bruising, contusion, itching. Allergy/Immun: Denies: allergic reaction, hives, rhinorrhea. Eyes: Denies: discharge, itching, eye pain. ENT: Denies: ear ringing, mouth pain, sinus problem, throat swelling. Respiratory: Denies: hemoptysis, parox nocturnal dyspnea, pleuritic pain. Cardiovascular: Reports: chest pain. GI: Reports: abdominal pain. Denies: dysphagia, hematemesis, melena. : Denies: frequency, penile discharge, testicular pain. Heme: Denies: adenopathy, bruising. Endocrine: Denies: polydipsia, polyphagia. Neuro: Denies: confusion, gait problem, numbness. Psych: Denies: confusion, hostile, suicidal ideation. All systems rev neg: except as marked Objective Physical Exam VS/I O: Patient Weight and BMI Weight (kg): BMI: Medications: Active Meds + DC'd Last 24 Hrs Docusate Sodium (COLACE) 200 MG DAILY PO Polyethylene Glycol (MIRALAX) 1 PKT DAILY PO (CKD) Mupirocin (BACTROBAN 2% 22 GM OINTMENT) 1 APPLIC BID NASAL Acetaminophen (TYLENOL REGULAR) 650 MG Q6H PRN PRN PO Bisacodyl (DULCOLAX) 10 MG DAILY PRN PRN RECTAL Dextrose/Water (DEXTROSE 50% SYR) 25 ML ASDIR PRN IV (CKD) Glucagon (GLUCAGON) 1 MG ASDIR PRN IM General appearance: alert, awake, oriented, no acute distress, pleasant, conversational, no respiratory distress Head/Eyes: EOMI, PERRLA ENT: moist mucosal membranes Neck: non-tender, no JVD Cardiovascular: normal capillary refill, normal heart sounds, regular rate and rhythm Respiratory: aerating well, clear to auscultation, symmetric expansion, no distress Abdomen: soft, non-tender, normal bowel sounds, no distention, no guarding, no rebound Extremities: moves all, normal capillary refill, normal range of motion, no edema Neuro/ENGINEERING MODEL MAKER: alert, oriented X 3, CNII-XII intact, normal speech, reflexes equal bilat, no motor deficits, no sensory deficits Results Findings/Data: Microbiology: 06/03 1840 NASAL: MRSA Surveillance Culture - ORD Diagnosis, Assessment Plan Problem List/A P: 1. Multi-vessel coronary artery stenosis 2. NSTEMI (non-ST elevation myocardial infarction) Orders: Procedure Date/time Status NOTHING BY MOUTH 06/03 D Active TYPE AND SCREEN 06/03 1920 Active PLATELETS PHERESIS 06/03 1920 Active PACKED RBC (LEUKOPOOR) 06/03 1920 Active FRESH FROZEN PLASMA 06/03 1920 Active RT: Oxygen Therapy 06/03 1840 Active Resuscitation Status 06/03 1840 Active XR CHEST 1 V 06/03 1840 Active Weigh patient daily 06/03 1840 Active Strict I O 06/03 1840 Active Sequential Compression Device 06/03 1840 Active Nurse to order labs 06/03 1840 Active MRSA Protocol 06/03 1840 Active Hypoglycemia Treatment Protoco 06/03 1840 Active Elevate Head of Bed 06/03 1840 Active Activity 06/03 1840 Active Blood Glucose Monitoring 06/03 1840 Active MRSA PCR Surveillance Screen 06/03 1840 Active UA RFLX MICR CULT IF INDICATED 06/03 1840 Active THROMBOPLASTIN TIME PARTIAL 06/03 1840 Active PROTHROMBIN TIME 06/03 1840 Active PHOSPHOROUS 06/03 1840 Active MAGNESIUM 06/03 1840 Active COMPREHENSIVE METABOLIC PANEL 06/03 1840 Active CBC W/AUTO DIFF 06/03 1840 Active B-TYPE NATRIURETIC PEPTIDE 06/03 1840 Active EKG 06/03 1840 Active Consultants: cardiovascular surgery Critical care time: Minutes: 45 Separately billable procedures excluded from time. Code Status/Resusc. Discussion Resuscitation discussion: Discussed with: patient Free Text DxA P Notes Free Text DxA P Notes: 70-year-old male without significant past med history presenting with ACS like symptoms [facility] positive for multivessel disease Assessment Multivessel coronary artery disease with left main involvement NSTEMI Plan Admitted to CVICU N.p.o. admitted Close hemodynamic respiratory metabolic and neurologic monitoring Continue telemetry EKG Baseline labs Heparin for anticoagulation which was started at outside facility Continue heparin till midnight for cardiac surgery Type and cross 4 units packed red cells/FFP/platelets for surgery tomorrow As needed glucose checks Keep O2 sats above 92% wean FiO2 as able Chest x-ray Avoid antiplatelet agent at 1924 RPT #:[id number] END OF REPORT [facility] 2024-06-03 17:28:00 [facility] ([facility]) Hospitalist Discharge Summary REPORT#:[id number] REPORT STATUS: Signed REPORT INITIALIZATION DATE:06/03/24 TIME:1727 PATIENT: KADIE ROCHA UNIT #: [id number] ROOM/BED: [place] [address] : 45 AGE: 78 SEX: M ATTEND: Gulshan Lai MD ADM AUTHOR: Gulshan Lai MD REPT SERVICE DT/TIME: 06/03/24 1728 * ALL edits or amendments must be made on the electronic/computer document * General Information Discharge date: 06/03/24 Discharge diagnosis: CAD Multivessel disease Hypertension Hyperlipidemia Hospital course: NSTEMI (non-ST elevated myocardial infarction) - significantly elevated trop level -On heparin drip - Repeat trop q 2hrs x3. - cardiology consult for further ischemic work up vs heart cathterization Acute Decompensated Chronic Congestive Heart Failure -BNP 1824 -strict I/Os and daily standing weights -TSH, UA, EKG, Lipids, A1C -Cardiology consulted, Dr. Brownlee appreciate assistance -Obtain chest x-ray, ECHO ordered for a.m. -Continue close telemetry monitoring - adjust meds for GDMT per ECHO findings Patient was admitted and monitored closely on telemetry Cardiology was consulted. Cardiology recommended undergoing LHC. Patient underwent LHC and found to have left main and multivessel disease and was transferred to higher level of care for CABG evaluation Consultants: cardiology, critical/mental retardation nurse Med Rec Med Rec Discharge meds: Start taking the following new medications: ATORVASTATIN (LIPITOR) 10 MG TAB 10 MILLIGRAM ORAL DAILY. Qty = 30 No Refills Objective VS/I O Last Documented: Result Date Time Pulse Ox 100 06/03 1737 B/P 144/74 06/03 1737 Pulse 56 06/03 1737 Resp 20 06/03 1737 O2 Delivery Room air 06/03 1700 O2 Flow Rate 2 06/03 1500 Temp 98.0 06/03 1430 B/P Mean 90 06/03 1200 Free Text Obj Notes Free Text Obj Notes: Physical Exam General appearance: alert, awake, oriented, no acute distress, mental status normal, no respiratory distress Head/Eyes: atraumatic, normocephalic, PERRLA ENT: moist mucosal membranes Neck: full range of motion, non-tender, normal thyroid, no JVD Cardiovascular: normal capillary refill, normal heart sounds, regular rate rhythm, no ectopy, no gallop, no heave, no murmur, no rub, no thrill Respiratory: aerating well, clear to auscultation, symmetric expansion, no distress Abdomen: tenderness, normal bowel sounds, soft, no distention, no guarding, no mass/organomegaly, no rebound Genitourinary: no flank pain Extremities: moves all, normal capillary refill, normal range of motion, no calf tenderness, no clubbing, no cyanosis, no edema Vascular pulse assess: Palpatated: R radial, L radial, R posterior tibialis, L posterior tibialis, R dorsalis pedis, L dorsalis pedis. Neuro/ENGINEERING MODEL MAKER: alert, oriented X 3, CNII-XII intact, normal speech, reflexes equal bilat, no motor deficits, no sensory deficits Skin: dry, intact, normal color, normal temperature, no rash Psychiatry: normal affect, normal judgment/insight, normal mood, no hallucinations Discharge Instructions PCP Discharge to: Acute [facility] Additional Discharge Routines: PCP Follow-Up, [employer] Follow-Up Diet: Resume Home Diet/Feeds Discharge management: greater than 30 mins Follow-up Appointments PCP follow-up: PCP: Undefined Provider PCP follow up timeframe: Today Consulting provider 1: Provider 1: Jean Marie Brownlee MD Specialty: CardiologyInterventional Consult follow up timeframe: Today at 1151 RPT #: [id number] END OF REPORT [facility] 2024-06-03 17:05:00 [facility] ([facility]) Pulmonary Consultation Note REPORT#:[id number] REPORT STATUS: Signed REPORT INITIALIZATION DATE:06/03/24 TIME:1704 PATIENT: KADIE ROCHA UNIT #: [id number] ROOM/BED: [place] [address] : 45 AGE: 78 SEX: M ATTEND: Gulshan Lai MD ADM AUTHOR: Shaheen Siddiqui MD REPT SERVICE DT/TIME: 06/03/241704 * ALL edits or amendments must be made on the electronic/computer document * History of Present Illness HPI HPI: 78-year-old male with no previous medical problems was a transfer from [facility] for evaluation of possible NSTEMI. Patient stated he experienced midepigastric abdominal pain, after eating a meal today, which has been more persistent than usual. Stated he occasionally experience pain from eating. No associated fever or chills, nausea or vomiting. Was found to have elevation in troponin at [facility], and with abnormal EKG. Placed on heparin drip and aspirin and transferred over here for NSTEMI Patient underwent cath and showed evidence of multivessel disease plan for transfer for CABG History - Adult longitudinal Additional medical history: HTN Additional family history: Noncontributory Smoking status for patients 13 years old or older: Never Smoker Allergies: Coded Allergies: No Known Allergies (06/02/24) Objective Physical Exam Vitals: Last Documented: Result Date Time Pulse Ox 100 06/03 1530 B/P 142/77 06/03 1530 O2 Delivery Room air 06/03 1530 Pulse 57 06/03 1530 Resp 20 06/03 1530 O2 Flow Rate 2 06/03 1500 Temp 36.7 06/03 1430 B/P Mean 90 06/03 1200 Results Findings/Data: Laboratory Tests 06/03/24 0539: [Embedded Image Not Available] 06/03/24 0028: [Embedded Image Not Available] 06/02/24 2359: [Embedded Image Not Available] Laboratory Tests 06/03 06/03 06/03 06/03 1410 0848 0848 0539 Chemistry Hemoglobin A1c (4.8 - 6.0 % A1C) 5.0 Troponin I High Sens (0 - 78 ng/L) 3781.3 *H 3163.5 *H 3018.5 *H Triglycerides (0 - 150 MG/DL) 79 Cholesterol (133 - 200 MG/DL) 201 H LDL Cholesterol [place]as[place] (0 - 129 118 MG/DL) Non-HDL Cholesterol (<130 mg/dL) 149 H HDL Cholesterol (60 MG/DL) 52 L LDL/HDL Ratio (1.48 - 3.22 Avg Ratio) 2.26 Cholesterol/HDL Ratio (0 RATIO) 3.87 TSH (0.34 - 4.82 mcIU/ML) 5.11 H Free T4 (0.77 - 1.61 NG/DL) 0.91 06/03 06/03 0539 0328 Chemistry Sodium (136 - 145 mmol/L) 139 Potassium (3.4 - 5.0 mmol/L) 4.0 Chloride (98 - 107 mmol/L) 105 Carbon Dioxide (21 - 32 mmol/L) 30 Anion Gap (4 - 15 GAP calc) 4 BUN (7 - 18 MG/DL) 14 Creatinine (0.6 - 1.0 MG/DL) 1.0 Glomerular Filtr Rate (>60 estGFR) >=60 max estimate Glucose (70 - 110 MG/DL) 108 Calcium (8.5 - 10.1 MG/DL) 8.9 Phosphorus (2.5 - 4.9 MG/DL) 3.8 Magnesium (1.8 - 2.4 MG/DL) 2.0 Total Bilirubin (0.0 - 1.0 MG/DL) 0.7 AST (15 - 37 Unit/L) 41 H ALT (30 - 65 Unit/L) 23 L Total Alk Phosphatase (50 - 136 Unit/L) 46 L Troponin I High Sens (0 - 78 ng/L) 2658.3 *H Total Protein (6.4 - 8.2 G/DL) 6.5 Albumin (3.4 - 5.0 G/DL) 3.4 Globulin (GM/dL) 3.1 Albumin/Globulin Ratio (1.2 - 2.2 RATIO) 1.1 L 06/02 2359 Chemistry Sodium (136 - 145 mmol/L) 140 Potassium (3.4 - 5.0 mmol/L) 3.8 Chloride (98 - 107 mmol/L) 103 Carbon Dioxide (21 - 32 mmol/L) 31 Anion Gap (4 - 15 GAP calc) 6 BUN (7 - 18 MG/DL) 16 Creatinine (0.6 - 1.0 MG/DL) 1.1 H Glomerular Filtr Rate (>60 estGFR) >=60 max estimate Glucose (70 - 110 MG/DL) 121 H Calcium (8.5 - 10.1 MG/DL) 8.9 Total Bilirubin (0.0 - 1.0 MG/DL) 0.5 AST (15 - 37 Unit/L) 34 ALT (30 - 65 Unit/L) 22 L Total Alk Phosphatase (50 - 136 Unit/L) 51 Troponin I High Sens (0 - 78 ng/L) 2441.9 *H NT-Pro-B Natriuret Pep (0 - 100 PG/ML) 1824 H Total Protein (6.4 - 8.2 G/DL) 6.7 Albumin (3.4 - 5.0 G/DL) 3.5 Globulin (GM/dL) 3.2 Albumin/Globulin Ratio (1.2 - 2.2 RATIO) 1.1 L Laboratory Tests 06/03 06/03 06/03 1247 0620 0335 Coagulation PTT ([place]) (26 - 35 SECONDS) 93.5 H 68.6 H 148.5 *H Laboratory Tests 06/03 0028 Hematology WBC (3.5 - 11.0 K/mm3) 6.6 RBC (4.70 - 6.10 M/mm3) 3.92 L Hgb (12.3 - 15.9 G/DL) 12.4 Hct (35.8 - 46.7 %) 35.6 L MCV (86.3 - 98.9 Fl) 90.8 MCH (28.9 - 34.4 pg) 31.6 MCHC (32.1 - 34.5 G/DL) 34.8 H RDW (11.5 - 14.5 SD) 13.7 Plt Count (150 - 450 K/mm3) 172 MPV (7.0 - 9.6 fL) 9.10 Neut % (Auto) (40 - 76 %) 63.9 Lymph % (Auto) (20.5 - 51.1 %) 23.6 [place] % (Auto) (1.7 - 9.3 %) 8.9 Eos % (Auto) (0.0 - 6.0 %) 2.9 Baso % (Auto) (0.0 - 2.0 %) 0.5 Neut # (Auto) (1.8 - 7.6 K/mm3) 4.2 Lymph # (Auto) (0.6 - 3.0 K/mm3) 1.6 [place] # (Auto) (0.2 - 1.5 K/mm3) 0.6 Eos # (Auto) (0.0 - 0.4 K/mm3) 0.2 Baso # (Auto) (0.0 - 0.2 K/mm3) 0.0 Abs Immat Gran (auto) (0.00 - 0.03 x10 3/uL) 0.01 Immature Gran % (0.0 - 5.0 %) 0.2 Nucleated RBC % (0.0 - 1.0 /100WBC%) 0.0 Radiology Data: Recent Impressions: RADIOLOGY - XR CHEST 1 V 06/03 3921 Report Impression - Status: SIGNED Entered: 06/03/2024 3579 IMPRESSION: No acute cardiopulmonary process. Impression By: PraveenSWDeanna - Ryan Hicks M.D Free Text Obj Notes Free Text Obj Notes: General appearance: Alert and oriented not in distress Head and neck. Normocephalic atraumatic, no pallor no jaundice, no goiter CV: S1-S2 regular rate and rhythm, no murmur Lungs: Fair air entry bilaterally, no rales no wheezes no rhonchi Abdomen: Soft lax nontender, no masses Extremities: No lower limb edema, no cyanosis no clubbing Neurologic: Alert and oriented, intact cranial nerves, no focal deficit Skin: Intact, no lesions Lymphatic: No lymphadenopathy appreciated Diagnosis, Assessment Plan Diagnosis, Assessment Plan Consultants: cardiology, critical/mental retardation nurse Free Text DxA P Notes Free Text DxA P Notes: 1. Non-ST elevation myocardial infarction 2. Multivessel coronary artery disease Seen and examined at bedside Evaluated workup Communicated with cath team and patient plan to be transferred to [facility] for CABG Continue medical therapy per cardiology Close monitoring until getting transferred Cardiology on board at 1707 RPT #: [id number] END OF REPORT [facility] 2024-06-03 02:02:00 [facility] ([facility]) Hospitalist History Physical REPORT#:[id number] REPORT STATUS: Signed REPORT INITIALIZATION DATE:06/03/24 TIME:201 PATIENT: KADIE ROCHA UNIT #: [id number] ROOM/BED: [place] [address] : 45 AGE: 78 SEX: M ATTEND: Gulshan Lai MD ADM AUTHOR: Juanita Catalan I APRNN REPT SERVICE DT/TIME: 06/03/24 0202 * ALL edits or amendments must be made on the electronic/computer document * Juanita Catalan I 06/03/24 0202: History of Present Illness HPI Chief complaint: Chest pain PCP: PCP: No Primary or Family Physician HPI: 78-year-old male with no previous medical problems was a transfer from [facility] for evaluation of possible NSTEMI. Patient stated he experienced midepigastric abdominal pain, after eating a meal today, which has been more persistent than usual. Stated he occasionally experience pain from eating. No associated fever or chills, nausea or vomiting. Was found to have elevation in troponin at [facility], and with abnormal EKG. Placed on heparin drip and aspirin and transferred over here for evaluation and management Hx Obtained From Patient, Prior medical records History Additional medical history: HTN Smoking status for patients 13 years old or older: Never Smoker Medication/Allergy-Vaccine Hx Allergies: Coded Allergies: No Known Allergies (06/02/24) Review of Systems Cardiovascular: chest pain. All systems rev neg: except as marked Objective General VS/I O: Vital Signs: Date Time Temp Pulse Resp B/P B/P Pulse O2 O2 Flow FiO2 Mean Ox Delivery Rate 06/03 0600 52 20 132/63 91 97 06/03 0530 51 29 111/56 80 94 06/03 0500 50 21 131/60 87 94 06/03 0430 51 25 122/58 84 94 06/03 0400 53 16 146/67 96 95 06/03 0330 52 27 142/64 92 97 06/03 0300 48 18 130/69 93 95 06/03 0230 53 21 118/61 84 97 06/03 0200 51 17 146/67 96 96 06/03 0130 57 28 162/77 109 100 06/03 0100 59 21 147/76 103 98 06/03 0030 57 19 181/83 119 98 06/03 0000 54 17 162/86 118 98 06/02 2338 52 23 155/70 100 98 06/02 2309 98.0 60 16 168/88 114 98 Room air 24 hour I O ending at 0700: 06/03 0700 06/02 1900 Intake Total Output Total Balance Patient 73.1 kg Weight Weight Bed scale Measurement Method PATIENT WEIGHT: Weight (lb): Weight (oz): Weight (kg): 73.100 Medications: Active Meds + DC'd Last 24 Hrs Pantoprazole Sodium (PROTONIX) 40 MG Q12HR IV Perflutren Lipid Microsphere (DEFINITY) 2 ML ONCE PRN IV (CKD) Acetaminophen (TYLENOL) 650 MG Q4H PRN PRN PO Docusate Sodium (COLACE) 100 MG BID PRN PRN PO Hydralazine HCl (APRESOLINE) 10 MG Q6H PRN PRN IV Hydrocodone Bitart/Acetaminophen (NORCO 5/325) 1 TAB Q6H PRN PRN PO Ondansetron HCl (ZOFRAN) 4 MG Q6H PRN PRN IV Tramadol HCl (ULTRAM) 50 MG Q6H PRN PRN PO Heparin Sodium (Porcine) (HEPARIN SODIUM) 5,848 UNIT ONCE ONE IV (CAN) Heparin Sodium/Dextrose (Heparin 25,000 Unit/500 ML D5W) 500 ML ASDIR IV (CKD) Free Text Obj Notes Free Text Obj Notes: Physical Exam General appearance: alert, awake, oriented, no acute distress, mental status normal, no respiratory distress Head/Eyes: atraumatic, normocephalic, PERRLA ENT: moist mucosal membranes Neck: full range of motion, non-tender, normal thyroid, no JVD Cardiovascular: normal capillary refill, normal heart sounds, regular rate rhythm, no ectopy, no gallop, no heave, no murmur, no rub, no thrill Respiratory: aerating well, clear to auscultation, symmetric expansion, no distress Abdomen: tenderness, normal bowel sounds, soft, no distention, no guarding, no mass/organomegaly, no rebound Genitourinary: no flank pain Extremities: moves all, normal capillary refill, normal range of motion, no calf tenderness, no clubbing, no cyanosis, no edema Vascular pulse assess: Palpatated: R radial, L radial, R posterior tibialis, L posterior tibialis, R dorsalis pedis, L dorsalis pedis. Neuro/ENGINEERING MODEL MAKER: alert, oriented X 3, CNII-XII intact, normal speech, reflexes equal bilat, no motor deficits, no sensory deficits Skin: dry, intact, normal color, normal temperature, no rash Psychiatry: normal affect, normal judgment/insight, normal mood, no hallucinations Scores HEART for MACE HEART for MACE HEART for MACE Response Value History Mod index of suspicion [address]-depression 2 Age Age 65 or over 2 Risk Factors for CAD 1-2 CAD risk factors 1 Troponin > or = to 3x NL trop 2 Total 8 Diagnosis, Assessment Plan Problem List/A P: 1. NSTEMI (non-ST elevated myocardial infarction) Orders: Procedure Date/time Status THROMBOPLASTIN TIME PARTIAL 06/07 1956 Active THROMBOPLASTIN TIME PARTIAL 06/07 135 Active THROMBOPLASTIN TIME PARTIAL 06/07 0756 Active THROMBOPLASTIN TIME PARTIAL 06/07 0156 Active THROMBOPLASTIN TIME PARTIAL 06/06 1956 Active THROMBOPLASTIN TIME PARTIAL 06/06 1356 Active THROMBOPLASTIN TIME PARTIAL 06/06 0756 Active THROMBOPLASTIN TIME PARTIAL 06/06 0156 Active THROMBOPLASTIN TIME PARTIAL 06/05 1956 Active THROMBOPLASTIN TIME PARTIAL 06/05 1356 Active THROMBOPLASTIN TIME PARTIAL 06/05 0756 Active THROMBOPLASTIN TIME PARTIAL 06/05 0156 Active THROMBOPLASTIN TIME PARTIAL 06/04 1956 Active THROMBOPLASTIN TIME PARTIAL 06/04 1356 Active THROMBOPLASTIN TIME PARTIAL 06/04 0756 Active THROMBOPLASTIN TIME PARTIAL 06/04 0156 Active THROMBOPLASTIN TIME PARTIAL 06/03 1956 Active THROMBOPLASTIN TIME PARTIAL 06/03 1356 Active TROPONIN I 06/03 0900 Active THROMBOPLASTIN TIME PARTIAL 06/03 0813 Active THROMBOPLASTIN TIME PARTIAL 06/03 0756 Complete THROMBOPLASTIN TIME PARTIAL 06/03 0713 Active Resuscitation Status 06/03 0704 Active EKG 06/03 0700 Active ECHO 2D COMPLETE W/CF DOP 06/03 0700 Active THROMBOPLASTIN TIME PARTIAL 06/03 0613 Complete TROPONIN I 06/03 0600 Complete COMPREHENSIVE METABOLIC PANEL 06/03 0500 Complete TROPONIN I 06/03 0300 Complete Provider Consult 06/03 0201 Active PHOSPHOROUS 06/03 0159 Complete MAGNESIUM 06/03 0159 Complete Notify MD: MU Heparin Protoco 06/03 0157 Active NSG: VTE/PE Heparin Protocol 06/03 015 Active Notify MD - Labs 06/03 015 Active Miscellaneous Lab 06/03 015 Active Consultants: cardiology, critical/mental retardation nurse Plan discussed with: patient, nurse Time spent: Time spent on patient care (minutes): 55 Code Status/Resusc. Discussion Code status: full code Free Text DxA P Notes Free Text DxA P Notes: 78 years old male with PMHx of HTN who is admitted for: NSTEMI (non-ST elevated myocardial infarction) - significantly elevated trop level -On heparin drip - Repeat trop q 2hrs x3. - cardiology consult for further ischemic work up vs heart cathterization Acute Decompensated Chronic Congestive Heart Failure -BNP 1824 -strict I/Os and daily standing weights -TSH, UA, EKG, Lipids, A1C -Cardiology consulted, Dr. Brownlee appreciate assistance -Obtain chest x-ray, ECHO ordered for a.m. -Continue close telemetry monitoring - adjust meds for GDMT per ECHO findings DVT ppx: heparin GI ppx: PPI Code status: Full code at 0104 at 1753 RPT #: [id number] END OF REPORT [facility] 2024-06-02 23:22:00 [facility] ([facility] EMERGENCY PROVIDER REPORT REPORT#:[id number] REPORT STATUS: Signed DATE:06/02/24 TIME:2321 PATIENT: KADIE ROCHA UNIT #: [id number] ROOM/BED: [place] [id number] : 45 AGE: 78 SEX: M PCP PHYS: Undefined Provider SERVICE AUTHOR: Js Doyle MD REP SRV REP SRV TM: 2321 * ALL edits or amendments must be made on the electronic/computer document * See Addendum HPI-General Illness Free Text HPI Notes Free Text HPI Notes 78-year-old male with no previous medical problems was a transfer from [facility] for evaluation of possible NSTEMI. Patient stated he experienced midepigastric abdominal pain, after eating a meal today, which has been more persistent than usual. Stated he occasionally experience pain from eating. No associated fever or chills, nausea or vomiting. Was found to have elevation in troponin at [facility], and with abnormal EKG. Placed on heparin drip and aspirin and transferred over here for evaluation and management General Initial Greet Date/Time 06/02/24 2310 Presentation Chief Complaint Chest pain Review of Systems ROS Statements Complete sys rev neg except as marked. Review of Systems Cardiovascular Reports: Chest pain. Past Medical History - Adult Stated Complaint CHEST PAIN-TRES PINOS TRANSFER ON HEPARIN GTT Allergies Coded Allergies: No Known Allergies (06/02/24) Home Medications Reported Medications No Known Home Medications Review of Nursing Notes Triage notes reviewed Pt reports no significant: Past medical history, Past surgical history, Social history Smoking status for patients 13 years old or older: Former Smoker Physical Exam Vital Signs Vital Signs First Documented: Result Date Time Pulse Ox 98 06/029 B/P 168/88 06/02 2309 B/P Mean 114 06/02 2309 O2 Delivery Room air 06/02 2309 Temp 98.0 06/02 2309 Pulse 60 06/02 2309 Resp 16 06/02 2309 Last Documented: Result Date Time Pulse Ox 98 06/03 0000 B/P 162/86 06/03 0000 B/P Mean 118 06/03 0000 Pulse 54 06/03 0000 Resp 17 06/03 O2 Delivery Room air 06/02 2309 Temp 98.0 06/02 2309 Review of Vital Signs Reviewed Basic Physical Exam Basic PE HEAD: Atraumatic/NC, EYES: PERRL, conj clear, ENT: Membranes moist, NECK: Supple, RESP: No resp distress, CV: Reg rate rhythm, ABD: Soft/non- tender, EXT: No gross abnormality, SKIN: No rashes, warm/dry, NEURO: alert oriented, NEURO: gross movement NL, PSYCH: NL thought content Interpretation Diagnostics Lab Results Interpretation Results Laboratory Tests 06/02/242358: [Embedded Image Not Available] Laboratory Tests: 06/02 2359 Chemistry Sodium (136 - 145 mmol/L) 140 Potassium (3.4 - 5.0 mmol/L) 3.8 Chloride (98 - 107 mmol/L) 103 Carbon Dioxide (21 - 32 mmol/L) 31 Anion Gap (4 - 15 GAP calc) 6 BUN (7 - 18 MG/DL) 16 Creatinine (0.6 - 1.0 MG/DL) 1.1 H Glomerular Filtr Rate (>60 estGFR) >=60 max estimate Glucose (70 - 110 MG/DL) 121 H Calcium (8.5 - 10.1 MG/DL) 8.9 Total Bilirubin (0.0 - 1.0 MG/DL) 0.5 AST (15 - 37 Unit/L) 34 ALT (30 - 65 Unit/L) 22 L Total Alk Phosphatase (50 - 136 Unit/L) 51 Troponin I High Sens (0 - 78 ng/L) 2441.9 *H NT-Pro-B Natriuret Pep (0 - 100 PG/ML) 1824 H Total Protein (6.4 - 8.2 G/DL) 6.7 Albumin (3.4 - 5.0 G/DL) 3.5 Globulin (GM/dL) 3.2 Albumin/Globulin Ratio (1.2 - 2.2 RATIO) 1.1 L Lab Statement Laboratory studies reviewed and considered in the medical decision-making. Lab Imaging Statement Laboratory radiographic studies reviewed and considered in the medical decision-making. ECG #1 Interpretation Text/Dict Note Normal rate, rhythm, axis. No QRS widening. Mild ST depression noted, laterally EKG reviewed and interpreted by me. Re-Evaluation MDM Free Text MDM Notes Free Text MDM Notes 70-year-old male was evaluation of NSTEMI, and chest pain. On arrival, afebrile , VSS. Labs, imaging, EKG, results were discussed with broadcast operations director. Agree on heparin drip, admission for further evaluation management ED Course Medication(s) Ordered Medication(s) Ordered: Blood Formation,Coagulation Sig/Fe Start time Last Medication Dose Route Stop Time Status Admin Heparin Sodium 5,848 UNIT ONCE ONE 06/02 2330 CAN (Porcine) IV 06/02 233 Heparin Sodium/ 500 ML ASDIR 06/02 233 CKD 06/03 Dextrose IV 06/16 2329 0009 Patient Discharge Departure Vital Signs/Condition Vital Signs First Documented: Result Date Time Pulse Ox 98 06/02 2309 B/P 168/88 06/02 2309 B/P Mean 114 06/02 2309 O2 Delivery Room air 06/02 2309 Temp 98.0 06/02 2309 Pulse 60 06/02 2309 Resp 16 06/02 2309 Last Documented: Result Date Time Pulse Ox 98 06/03 0000 B/P 162/86 06/03 0000 B/P Mean 118 06/03 0000 Pulse 54 06/03 0000 Resp 17 06/03 0000 O2 Delivery Room air 06/02 2309 Temp 98.0 06/02 2309 All vital signs available at the time of this entry have been reviewed. Clinical Impression Clinical Impression Primary Impression: NSTEMI (non-ST elevated myocardial infarction) Disposition Decision Hospitalize )( Accepts Hospitalization Yes )( Reason for Hospitalization NSTEMI )( Accepted Time 0009 )( Accepted Date 06/03/24 Discharge/Care Plan (Auto) Prescriptions Current Visit Scripts No Known Home Medications Critical Care Time Spent (minutes): 35 Services Performed Patient management by me, Time spent at bedside, Reviewing test results, Reviewing imaging, Discussing patient care, Documentation in record, Time with fam/surrogate Separately billable procedures excluded from time. Patient was critically ill due to: NSTEMI My treatment and management were: Labs, imagings, anticoagulations, cardiology consult, admission CC Note 1 Total critical care time 35 minutes. Total critical care time documented does not include time spent on separately billed procedures or the services of residents, students, nurses or physician assistants. I personally saw and examined the patient. I have reviewed all diagnostic interpretations and treatment plans as written. I was present for the glass portions of any procedures performed and the inclusive time noted in any critical care statement. Critical care time includes patient management by me, time spent at the patients bedside, time to review lab and imaging results, discussing patient care, documentation in the medical record, and time spent with the family or caregiver. at 0252 Addendum 1: 06/14/242207 by Js Doyle MD Patient Addendum Addendum )( HEART for MACE )( HEART for MACE Response Value History Mod index of suspicion 1 ECG Interpretation Normal ECG 0 Age Age 65 or over 2 Risk Factors for CAD No risk factors known 0 Troponin > or = to 3x NL trop 2 Total 5 at 2208 [facility] #: [id number] END OF REPORT HCAPM
[2025-01-27 13:58] LABS: Absolute Eosinophils 0.1 K/uL (0-0.5); Absolute Lymphocytes (CBC) 0.9 K/uL (0.7-4.9); Absolute Monocytes 0.5 K/uL (0.1-1.3); Absolute Neutrophil 5.6 K/uL (1.8-8.0); Basophils % 0.5 % (0-1.3); Hematocrit 36.7 % (39.6-49.0); Hemoglobin 12.9 g/dL (13.6-17.9); Lymphocytes % 12.7 % (15.3-44.8); MCH 32.6 pg (27.0-35.0); MCHC 35.1 g/dL (32.0-36.0); MPV 7.7 fL (7.6-11.3); Monocytes % 6.7 % (3.3-12.3); Neutrophils % 79.1 % (41.7-73.7); Platelets 191 thou/uL (152-406); RBC Red Blood Cell Count 3.94 M/uL (4.33-5.43); Red Cell Distribution Width 14.9 % (12.1-15.2)
[2025-01-27 14:17] LABS: Anion Gap 12.5 mEq/L (5.0-15.0); Bilirubin Direct 0.2 mg/dL (0-0.2); Bilirubin Indirect, Calculated 0.5 mg/dL (0.2-0.8); Bilirubin Total 0.7 mg/dL (0.2-1.0); Potassium 4.5 mEq/L (3.5-5.1); Protein, Total 6.9 g/dL (6.4-8.2)
[2025-01-27 14:18] LABS: Albumin 3.5 g/dL (3.4-5.0); Globulin 3.4 g/dL (2.3-3.5); Troponin High Sensitivity 6.7 pg/mL (<58.9)
[2025-01-27] MEDS ORDERED: NA CHLORIDE 0.9% 1,000 ML ONE (14:50)
--- NOTE | 2025-01-27 17:02 | ER ---
Nurse's Notes [facility] Name: Sebastien Pugh Age: 79 yrs Sex: Male : 1945 Arrival Date: 01/27/2025 Time: 12:01 Bed 19 Private MD: Diagnosis: Hypotension, unspecified Presentation: 01/27 12:19 Chief complaint: Patient states: Sent to ER by PCP for low BP. Pt states that his BP cm10 was 70/40 at his doctors office. Pt states that he had dizziness and blurred vision that have resolved. Pt currently reports feeling tired. Coronavirus screen: Client denies travel out of the [place] in the last 14 days. Ebola Screen: Patient denies travel to an Ebola-affected area in the 21 days before illness onset. No symptoms or risks identified at this time. Initial Sepsis Screen: Does the patient meet any 2 criteria? No. Patient's initial sepsis screen is negative. Does the patient have a suspected source of infection? No. Patient's initial sepsis screen is negative. Risk Assessment: Do you want to hurt yourself or someone else? Patient reports no desire to harm self or others. Onset of symptoms was January 27, 2025. 12:19 Method Of Arrival: Ambulatory cm10 12:19 Acuity: SINDY 3 cm10 Triage Assessment: 12:22 General: Appears in no apparent distress. comfortable, Behavior is calm, cooperative. cm10 Neuro: No deficits noted. Level of Consciousness is awake, alert, obeys commands, Oriented to person, place, time, situation, Appropriate for age. Respiratory: No deficits noted. Airway is patent Respiratory effort is even, unlabored, Respiratory pattern is regular, symmetrical. 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 - Infectious Disease History:: Denies. - Social history:: Smoking status: Patient denies any tobacco usage or history of. Screenin:30 [facility] ED Fall Risk Assessment (Adult) History of falling in the last 3 months, bp including since admission No falls in past 3 months (0 pts) Confusion or Disorientation No (0 pts) Intoxicated or Sedated No (0 pts) Impaired Gait No (0 pts) Mobility Assist Device Used No (0 pt) Altered Elimination No (0 pt) Score/Fall Risk Level 0 - 2 = Low Risk Oriented to surroundings. Abuse screen: Denies threats or abuse. Denies injuries from another. Nutritional screening: No deficits noted. Tuberculosis screening: No symptoms or risk factors identified. Assessment: 12:30 General: SEE TRIAGE NOTE. bp 14:30 Reassessment: Patient appears in no apparent distress at this time. Patient is alert, bp oriented x 3, equal unlabored respirations, skin warm/dry/pink. Pain: Denies pain. 15:57 Reassessment: Patient appears in no apparent distress at this time. Patient is alert, bp oriented x 3, equal unlabored respirations, skin warm/dry/pink. Vital Signs: 12:19 BP 96 / 63; Pulse 54; Resp 16; Temp 97.6; Pulse Ox 97% on R/A; Weight 70.76 kg; Height cm10 5 ft. 11 in. ; Pain 0/10; 14:30 BP 118 / 53; Pulse 53; Resp 16; Pulse Ox 98% ; bp 15:55 BP 123 / 60; Pulse 58; Resp 16; Pulse Ox 98% ; bp 16:56 BP 139 / 67; Pulse 59; Resp 15; Pulse Ox 99% ; bp 12:19 Body Mass Index 21.76 (70.76 kg, 180.34 cm) cm10 12:19 Pain Scale: Adult cm10 ED Course: 12:11 Patient arrived in ED. cj3 12:20 Triage completed. cm10 12:22 Arm band placed on right wrist. Patient placed in waiting room. cm10 12:26 Dorian Hurst MD is Attending Physician. jj9 13:21 Ugo Penn, RN is Primary Nurse. bp 13:30 XRAY Chest (1 view) In Process Unspecified. EDMS 13:46 Inserted saline lock: 22 gauge in right forearm, using aseptic technique. Blood bp collected. Flushed with 10 mL NS. 13:46 Initial lab(s) drawn, by mo, sent to lab. EKG done, by ED staff, reviewed by Dorian Hurst MD. 14:30 Patient has correct armband on for positive identification. bp 16:56 No provider procedures requiring assistance completed. IV discontinued, intact, bp bleeding controlled, No redness/swelling at site. Pressure dressing applied. 17:00 Gómez Burroughs DO is Referral Physician. [email or web address] Administered Medications: 14:48 CANCELLED (Physician Discretion): ns0.45 % 1000 ml IV at bolus once jl7 14:58 Drug: NS 0.9% IV 1000 ml IV at 1 bolus Per protocol; to be given as a bolus over 60 bp minutes Route: IV; Rate: 1 bolus; Site: right forearm; Outcome: 17:01 Discharge ordered by MD. barry 17:27 Patient left the ED. bp Signatures: Dispatcher [employer] EDMS Ugo Penn, RN RN Maria A Frey RN RN cm10 Heather Ponce cj3 Dorian Hurst MD MD jj9 Mitchell Garzon RN jl7
--- NOTE | 2025-01-27 17:02 | EDPHYS ---
Physician Documentation [facility] Name: Sebastien Pugh Age: 79 yrs Sex: Male : 1945 Arrival Date: 01/27/2025 Time: 12:01 Bed 19 Private MD: ED Physician Dorian Hurst HPI: 01/27 18:21 This 79 yrs old Male presents to ER via Ambulatory with complaints of Low Blood jj9 Pressure- SENT BY AMEENAS. 16:57 79-year-old comes to the emergency department for evaluation of low blood pressure. The jj9 patient reports he went to see his PCP and his blood pressure was low therefore he was sent to the emergency department for evaluation. He feels fine he denies chest pain, shortness of breath, fever, chills, nausea, vomiting or any other problems. 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 He is very active and denies any other problems.. 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 - Infectious Disease History:: Denies. - Social history:: Smoking status: Patient denies any tobacco usage or history of. ROS: 16:58 Constitutional: Negative for fever, chills, and weight loss, Eyes: Negative for injury, jj9 pain, redness, and discharge, ENT: Negative for injury, pain, and discharge, Neck: Negative for injury, pain, and swelling, Cardiovascular: Negative for chest pain, palpitations, and edema, Respiratory: Negative for shortness of breath, cough, wheezing, and pleuritic chest pain, Abdomen/GI: Negative for abdominal pain, nausea, vomiting, diarrhea, and constipation, Back: Negative for injury and pain, : Negative for injury, bleeding, discharge, and swelling, MS/Extremity: Negative for injury and deformity, Skin: Negative for injury, rash, and discoloration, Neuro: Negative for headache, weakness, numbness, tingling, and seizure, Exam: 16:58 Constitutional: This is a well developed, well nourished patient who is awake, alert, jj9 and in no acute distress. Head/Face: Normocephalic, atraumatic. Eyes: Pupils equal round and reactive to light, extra-ocular motions intact. Lids and lashes normal. Conjunctiva and sclera are non-icteric and not injected. Cornea within normal limits. Periorbital areas with no swelling, redness, or edema. ENT: Nares patent. No nasal discharge, no septal abnormalities noted. Tympanic membranes are normal and external auditory canals are clear. Oropharynx with no redness, swelling, or masses, exudates, or evidence of obstruction, uvula midline. Mucous membranes moist. Neck: Trachea midline, no thyromegaly or masses palpated, and no cervical lymphadenopathy. Supple, full range of motion without nuchal rigidity, or vertebral point tenderness. No Meningismus. Chest/axilla: Normal chest wall appearance and motion. Nontender with no deformity. No lesions are appreciated. Cardiovascular: Regular rate and rhythm with a normal S1 and S2. No gallops, murmurs, or rubs. Normal PMI, no JVD. No pulse deficits. Respiratory: Lungs have equal breath sounds bilaterally, clear to auscultation and percussion. No rales, rhonchi or wheezes noted. No increased work of breathing, no retractions or nasal flaring. Abdomen/GI: Soft, non-tender, with normal bowel sounds. No distension or tympany. No guarding or rebound. No evidence of tenderness throughout. Back: No spinal tenderness. No costovertebral tenderness. Full range of motion. Skin: Warm, dry with normal turgor. Normal color with no rashes, no lesions, and no evidence of cellulitis. MS/ Extremity: Pulses equal, no cyanosis. Neurovascular intact. Full, normal range of motion. Neuro: Awake and alert, GCS 15, oriented to person, place, time, and situation. Cranial nerves II-XII grossly intact. Motor strength 5/5 in all extremities. Sensory grossly intact. Cerebellar exam normal. Normal gait. Psych: Awake, alert, with orientation to person, place and time. Behavior, mood, and affect are within normal limits. Vital Signs: 12:19 BP 96 / 63; Pulse 54; Resp 16; Temp 97.6; Pulse Ox 97% on R/A; Weight 70.76 kg; Height cm10 5 ft. 11 in. ; Pain 0/10; 14:30 BP 118 / 53; Pulse 53; Resp 16; Pulse Ox 98% ; bp 15:55 BP 123 / 60; Pulse 58; Resp 16; Pulse Ox 98% ; bp 16:56 BP 139 / 67; Pulse 59; Resp 15; Pulse Ox 99% ; bp 12:19 Body Mass Index 21.76 (70.76 kg, 180.34 cm) cm10 12:19 Pain Scale: Adult cm10 MDM: 12:26 Medical Screening Exam initiated 16:58 Differential Diagnosis sepsis, ACS, anemia, electrolyte abnormality, renal failure, jj9 etc.. Data reviewed: vital signs, nurses notes. ED course: The patient remains hemodynamically stable blood pressure is 139/67 lab work is unremarkable with no evidence of infiltrates on x-ray. EKG no ST-T changes. Sinus bradycardia rate of 50.. 17:00 ED course: He feels fine and ready go home. Advised to continue home medications, [facility] follow with PCP and return to the emergency department if worsening of symptoms or any other problems. Patient understands and agrees with the plan.. 01/27 12:27 Order name: Basic Metabolic Panel; Complete Time: 14:31 [facility] 01/27 12:27 Order name: CBC with Diff; Complete Time: 14:31 01/27 12:27 Order name: LFT's; Complete Time: 14:31 [facility] 01/27 12:27 Order name: NT PRO-BNP; Complete Time: 14:31 01/27 12:27 Order name: Troponin HS; Complete Time: 14:31 01/27 12:27 Order name: XRAY Chest (1 view) 01/27 12:27 Order name: Cardiac monitoring; Complete Time: 13:45 01/27 12:27 Order name: EKG - Nurse/Tech; Complete Time: 13:46 01/27 12:27 Order name: IV Saline Lock; Complete Time: 13:46 01/27 12:27 Order name: Labs collected and sent; Complete Time: 13:46 01/27 12:27 Order name: O2 Per Protocol; Complete Time: 13:46 01/27 12:27 Order name: O2 Sat Monitoring; Complete Time: 13:46 jj9 Administered Medications: 14:48 CANCELLED (Physician Discretion): ns0.45 % 1000 ml IV at bolus once jl7 14:58 Drug: NS 0.9% IV 1000 ml IV at 1 bolus Per protocol; to be given as a bolus over 60 bp minutes Route: IV; Rate: 1 bolus; Site: right forearm; Disposition Summary: 01/27/25 17:01 Discharge Ordered Notes: Location: Home jj9 Problem: new jj9 Condition: Stable jj9 Diagnosis - Hypotension, unspecified jj9 Followup: jj9 - With: Gómez Burroughs, - When: - Reason: Re-evaluation by your physician Discharge Instructions: - Discharge Summary Sheet jj9 - Hypotension j9 Forms: - Medication Reconciliation Form jj9 - Antibiotic Education jj9 - Prescription Opioid Use jj9 - Patient Portal Instructions jj9 - Leadership Thank You Letter jj9 Signatures: Dispatcher [employer] EDW[place] Ugo Penn, RN RN Maria A Young RN RN cm10 Dorian Hurst MD MD jj9 Mitchell Garzon RN jl7 Corrections: (The following items were deleted from the chart) 12:27 12:27 Chest Single View+RAD.RAD.BRZ ordered. [facility] 14:48 14:33 NS IV 0.45 % 1000 ml IV at bolus once ordered. jj9 jl7 14:48 14:38 NS IV 0.45 % 1000 ml IV at bolus once ordered. jj9 jl7
[2025-01-27 17:43] VITALS: TEMP 97.6
[2025-01-27 17:49] VITALS: BP 139/67; O2SAT 99
--- NOTE | 2025-01-27 20:51 | RAD REPORT ---
EXAMINATION: ONE VIEW CHEST XR CLINICAL INDICATION: Male, 79 years old.,CHEST PAIN TECHNIQUE: Frontal chest projection is submitted. Examination is limited by patient positioning and t echnique. COMPARISON: No prior exam. FINDINGS: The lungs are well inflated and clear. No pneumothorax or sizable effusion. The heart is normal in s ize. Mediastinal contours are unremarkable apart from sequelae of CABG. Left chest wall deformities, suggesting remote fractures.. IMPRESSION: No acute intrathoracic abnormalities.
--- NOTE | 2025-01-31 16:55 | EKG ---
Test Date: 2025-01-27 Test Time: 13:32:28 Grain Sampler: BP MEASUREMENT RESULTS: Intervals: Rate: 50 CA: 174 QRSD: 82 QT: 440 QTc: 401 [place]: P: 59 CA: 174 QRS: 61 T: 52 INTERPRETIVE STATEMENTS: Sinus bradycardia Cannot rule out Anterior infarct, age undetermined Abnormal ECG No previous ECG available for comparison Electronically Signed On 01-31-25 16:49:42 CDT by Oh Esqueda
== END 2025-01-27 17:27 | disposition home or self-care (01) ==
LOC: ER 12:01
DX: I95.9 Hypotension, unspecified (principal); Z95.1 Presence of aortocoronary bypass graft; Z79.82 Long term (current) use of aspirin
CPT/HCPCS: 93005; 85025; 80048; 36415; 80076; 84484; 83880; 71045; 99284; J7030